=== PATIENT | male | born 1940 | race Caucasian/White ===

== ENCOUNTER 2016-08-04 21:24 | Emergency (ER) | payer MEDICARE, OTHER ==
[2016-08-04 21:36] VITALS: BP 160/75
== END 2016-08-04 22:28 | disposition left against medical advice (07) ==
LOC: ED 21:24
DX: Z53.21 Procedure and treatment not carried out due to patient leaving prior to being seen by health care provider (principal)
CPT/HCPCS: 99282

== ENCOUNTER 2017-06-04 14:56 | Emergency (ER) | payer OTHER ==
--- NOTE | 2017-06-04 15:37 | ED Physician Documentation ---
PD HPI FOCAL NEURO - Stated complaint Stated Complaint: LT SIDE DROOPY - Chief complaint Chief Complaint: Neuro - History obtained from History obtained from: Patient, Family - History of Present Illness Timing - onset: Yesterday Timing - duration: Hours (30) Timing - details: Gradual onset Severity of deficit: Moderate Weakness: Face, Left Numbness: No: Face, Arm, Hand, Leg, Foot, Right, Left Associated symptoms: No: Headache, Nausea / vomiting, Seizure, Syncope, Fall, Head injury, Chest pain, Neck pain, Back pain, Fever Contributing factors: positive: Other (hemodialysis). negative: Anticoagulated Baseline status: positive: A&OX3, ambulatory, indep Similar symptoms before: Has not had sx before Recently seen: Not recently seen - Additional information Additional information: Patient is a 76-year-old gentleman that presents to the emergency department with left-sided facial droop since yesterday. He also states that he has had intermittent left foot dragging for the past month. Currently has no left lower extremity weakness. No right lower extremity weakness or upper extremity weakness bilaterally. No dysarthria or dysphasia. States cannot close his left eye. Has not been sick recently. Review of Systems Ten Systems: 10 systems reviewed and negative Constitutional: denies: Fever, Chills Nose: denies: Rhinorrhea / runny nose, Congestion Throat: denies: Sore throat GI: denies: Nausea, Vomiting, Diarrhea : denies: Dysuria Skin: denies: Rash Musculoskeletal: denies: Neck pain, Back pain Neurologic: denies: Confused, Altered mental status, Headache PD PAST MEDICAL HISTORY - Past Medical History Past Medical History: Yes Other Past Medical History: chronic renal failure on dialysis - Past Surgical History Past Surgical History: No - Present Medications Home Medications: Ambulatory Orders Medication Instructions Recorded Confirmed Aspirin 81 mg PO 06/04/17 Doxazosin [Cardura] 2 mg PO DAILY 06/04/17 06/04/17 Multivit, Mincmb#11/Folic Acid 5 mg PO 06/04/17 [Dialyvite 5000 Tablet] Torsemide 40 mg PO DAILY 06/04/17 06/04/17 Valacyclovir HCl [Valacyclovir] 500 mg PO DAILY #7 tablet 06/04/17 predniSONE [Deltasone] 10 mg PO [id number] #42 tab 06/04/17 - Allergies Allergies/Adverse Reactions: Allergies Allergy/AdvReac Type Severity Reaction Status Date / Time pravastatin Allergy Unknown Verified 06/04/17 15:11 primidone Allergy Dizziness Verified 06/04/17 15:11 simvastatin Allergy Unknown Verified 06/04/17 15:11 zolpidem [From Ambien] Allergy Hallucinati Verified 06/04/17 15:11 ons Wnuynzi-Ilh-Ztm Reductase AdvReac Unknown Verified 08/04/16 21:36 Inhibitor - Living Situation Living Situation: reports: With family Living Arrangement: reports: At home - Social History Does the pt smoke?: No Smoking Status: Never smoker Does the pt drink ETOH?: No Does the pt have substance abuse?: No - Immunizations Immunizations are current?: Yes PD ED PE NORMAL - Vitals Vital signs reviewed: Yes - General General: Alert and oriented X 3, No acute distress, Well developed/nourished - HEENT HEENT: PERRL, Ears normal, Moist mucous membranes - Neck Neck: Supple, no meningeal sign - Cardiac Cardiac: RRR, Strong equal pulses - Respiratory Respiratory: No respiratory distress, Clear bilaterally - Abdomen Abdomen: Soft, Non tender, Non distended - Derm Derm: Warm and dry, No rash - Neuro Neuro: Alert and oriented X 3, Other (L sided facial droop, involves the forehead. Flattening of the nasolabial fold. Otherwise normal cranial nerve and neuro exam. ) - Psych Psych: Normal mood, Normal affect NIHSS - Time Time: 15:25 - Level of Consciousness Level of consciousness: (0) Alert, Keenly responsive LOC Questions: (0) Answers both Q's correct LOC Commands: (0) Performs both correctly - Gaze Best Gaze: (0) Normal - Visual Visual: (0) No loss - Facial Palsy Facial Palsy: (3) Complete paralysis - Motor Arms (both separate) Motor Arm (right): (0) No drift Motor Arm (left): (0) No drift - Motor Legs (both separate) Motor Leg (right): (0) No drift Motor Leg (left): (0) No drift - Limb Ataxia Limb Ataxia: (0) Absent - Sensory Sensory: (0) Normal - Best Language Best Language: (0) No aphasia - Dysarthria Dysarthria: (0) Normal - Extinction and Inattention (formally neg Extinction and inattention: (0) No abnormality - Total Score/Results Total Score/Result: 3 Results - Vitals Vitals: Vital Signs - 24 hr 06/04/17 06/04/17 15:08 17:36 Temperature 36.9 C 36.9 C Heart Rate 60 78 Respiratory 16 17 Rate Blood Pressure 168/79 H 173/89 H O2 Saturation 97 98 Oxygen O2 Source Room air - EKG (time done) 1550 Rate: Rate (enter#) (57) Rhythm: NSR [place]: Normal Intervals: Normal SC QRS: Normal Ischemia: Normal ST segments - Labs Labs: Laboratory Tests 06/04/17 06/04/17 15:57 15:57 WBC 6.4 RBC 3.39 L Hgb 11.0 L Hct 32.9 L MCV 97.1 H MCH 32.4 H MCHC 33.3 RDW 13.2 Plt Count 252 MPV 7.5 Neut # 4.5 Lymph # 1.0 L [place] # 0.5 Eos # 0.4 Baso # 0.1 Absolute Nucleated RBC 0.00 Nucleated RBC % 0.0 Sodium 135 Potassium 3.8 Chloride 94 L Carbon Dioxide 28 Anion Gap 13.0 BUN 76 H Creatinine 8.9 H* Estimated GFR (MDRD) 6 L Glucose 156 H Calcium 9.4 Total Bilirubin 0.4 AST 15 ALT 18 Alkaline Phosphatase 55 Total Protein 6.8 Albumin 3.7 Globulin 3.1 Albumin/Globulin Ratio 1.2 Lipase 74 H - Rads (name of study) head CT Radiology: Prelim report reviewed, EMP read contemporaneously, See rad report ( Mild generalized atrophy, within expected limits for patient age. 2. No acute intracranial abnormality. 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 Given his age and comorbidities, CT scan was undertaken to evaluate for other potential etiologies, as well as the dragging of the left foot intermittently for the past few months. No acute findings on head CT or laboratory findings. 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 He is on hemodialysis of his medication doses were adjusted. Patient counseled regarding signs and symptoms for which I believe and urgent re-evaluation would be necessary. Patient with good understanding of and agreement to plan and is comfortable going home at this time This document was made in part using voice recognition software. While efforts are made to proofread this document, sound alike and grammatical errors may occur. Departure - Departure Disposition: 01 Home, Self Care Clinical Impression: Carlin palsy Condition: Good Instructions: ED [place] Palsy Follow-Up: your,doctor in 1 week [Other] Prescriptions: predniSONE [Deltasone] 10 mg PO [id number] #42 tab Valacyclovir HCl [Valacyclovir] 500 mg PO DAILY #7 tablet Comments: You need to use artificial tears to help lubricate the left eye. A gel tear should be used at night and you may need to tape the left eyelid shut at night to prevent ulcers to your cornea. Return if you worsen. Discharge Date/Time: 06/04/17 17:38
[2017-06-04 16:07] LABS: BASOPHILS # (AUTO) 0.1 10^3/uL (0.0-0.1); BASOPHILS % (AUTO) 0.9 %; EOSINOPHILS # (AUTO) 0.4 10^3/uL (0.0-0.7); LYMPHOCYTES % (AUTO) 15.4 %; MEAN CORPUSCULAR HEMOGLOBIN 32.4 pg (27.0-31.0); MEAN CORPUSCULAR HGB CONC 33.3 g/dL (32.0-36.0); MEAN CORPUSCULAR VOLUME 97.1 fL (80.0-94.0); MEAN PLATELET VOLUME 7.5 fL (7.4-11.4); MONOCYTES # (AUTO) 0.5 10^3/uL (0.0-1.0); MONOCYTES % (AUTO) 7.6 %; NEUTROPHILS # (AUTO) 4.5 10^3/uL (1.5-6.6); NEUTROPHILS % (AUTO) 70.1 %; PLT - PLATELET COUNT 252 10^3/uL (130-450); RED BLOOD COUNT 3.39 10^6/uL (4.70-6.10); RED CELL DISTRIBUTION WIDTH 13.2 % (12.0-15.0); WHITE BLOOD COUNT 6.4 x10^3/uL (4.8-10.8)
[2017-06-04 16:25] LABS: ALBUMIN 3.7 g/dL (3.2-5.5); ALBUMIN/GLOBULIN RATIO 1.2 (1.0-2.2); BILIRUBIN,TOTAL 0.4 mg/dL (0.2-1.0); CALCIUM 9.4 mg/dL (8.5-10.3); TOTAL PROTEIN 6.8 g/dL (6.7-8.2)
[2017-06-04 16:27] LABS: CREATININE 8.9 mg/dL (0.6-1.2)
--- NOTE | 2017-06-04 16:33 | CT Preliminary Report ---
Exam: CT HEAD W/O IMPRESSION: 1. Mild generalized atrophy, within expected limits for patient age. 2. No acute intracranial abnormality. [facility] SITE ID: [id number]
--- NOTE | 2017-06-04 16:33 | CT Report ---
EXAM: CT HEAD EXAM DATE: 06/04/2017 04:10 PM. CLINICAL HISTORY: Left-sided facial droop since yesterday. COMPARISON: 09/22/2008. TECHNIQUE: Multiaxial CT images were obtained from the foramen magnum to the vertex. Reformats: Coron al. IV contrast: None. In accordance with CT protocol optimization, one or more of the following dose reduction techniques w ere utilized for this exam: automated exposure control, adjustment of mA and/or KV based on patient s ize, or use of iterative reconstructive technique. FINDINGS: Parenchyma: No intraparenchymal hemorrhage, mass effect, or CT findings of evolving acute/subacute in farct. Baumann-white differentiation is distinct. Extraaxial Spaces: Mild diffuse prominence, compatible with generalized atrophy. No subdural or epidu ral collections identified. Ventricles: Normal in size and position. Sinuses and Orbits: Imaged paranasal sinuses, orbits, and mastoids show no significant abnormality. Bones: No evidence of fracture or calvarial defect. Other: None. IMPRESSION: 1. Mild generalized atrophy, within expected limits for patient age. 2. No acute intracranial abnormality. [facility] Referring Provider Line: [phone] SITE ID: [id number]
[2017-06-04 17:38] VITALS: BP 173/89
== END 2017-06-04 17:38 | disposition home or self-care (01) ==
LOC: ED 14:56
DX: G51.0 Bell's palsy (principal); I45.81 Long QT syndrome; N18.9 Chronic kidney disease, unspecified; Z99.2 Dependence on renal dialysis; Z79.82 Long term (current) use of aspirin
CPT/HCPCS: 36415; 70450; 80053; 83690; 85025; 93005; 99283; 99284

== ENCOUNTER 2017-11-28 22:45 | Emergency (ER) | payer OTHER ==
[2017-11-29 00:14] LABS: BILIRUBIN,URINE NEGATIVE (NEGATIVE); CLARITY,URINE CLEAR (CLEAR); GLUCOSE, URINE (UA) NEGATIVE (NEGATIVE); KETONES,URINE (UA) NEGATIVE (NEGATIVE); LEUKOCYTE ESTERASE, URINE NEGATIVE (NEGATIVE); NITRITE,URINE NEGATIVE (NEGATIVE); OCCULT BLOOD,URINE NEGATIVE (NEGATIVE); PROTEIN,URINE 100 mg/dL (NEGATIVE); UROBILINOGEN,URINE 0.2 (NORMAL) E.U./dL (NORMAL)
--- NOTE | 2017-11-29 00:16 | ED Physician Documentation ---
PD HPI MALE - Stated complaint Stated Complaint: MALE - Chief complaint Chief Complaint: Abd Pain - History obtained from History obtained from: Patient, Family - History of Present Illness Timing - onset: How many days ago (2) Timing - duration: Days (2) Timing - details: Gradual onset, Still present Associated symptoms: Urinary frequency, Unable to urinate Similar symptoms before: Has not had sx before Recently seen: Other - Additional information Additional information: 76-year-old dialysis patient who still does make urine has developed urinary symptoms this morning. He denies any urinary symptoms previously. He states that about 2 days ago he began to experience an increase in the frequency of his urination in small volumes. Today he has gone from urinating twice an hour to once every 10 minutes. He is come to the emergency department this evening with urinary frequency and minimal pain associated with this. Review of Systems Constitutional: denies: Fever, Chills, Myalgias, Fatigue Eyes: denies: Decreased vision Ears: denies: Ear pain Nose: denies: Congestion Throat: denies: Sore throat Cardiac: denies: Chest pain / pressure, Palpitations Respiratory: denies: Dyspnea, Cough GI: denies: Abdominal Pain, Nausea, Vomiting, Constipation, Diarrhea : reports: Frequency, Unable to Void Skin: denies: Rash Musculoskeletal: denies: Neck pain, Back pain, Extremity pain Neurologic: denies: Generalized weakness, Focal weakness, Numbness PD PAST MEDICAL HISTORY - Past Medical History Past Medical History: Yes : Renal insuffiency - Past Surgical History Past Surgical History: No - Present Medications Home Medications: Ambulatory Orders Medication Instructions Recorded Confirmed Aspirin 81 mg PO 06/04/17 Doxazosin [Cardura] 2 mg PO DAILY 06/04/17 06/04/17 Multivit-Mins No.11/Folic Acid 5 mg PO 06/04/17 [Dialyvite 5000 Tablet] Torsemide 40 mg PO DAILY 06/04/17 06/04/17 Valacyclovir HCl [Valacyclovir] 500 mg PO DAILY #7 tablet 06/04/17 predniSONE [Deltasone] 10 mg PO [id number] #42 tab 06/04/17 - Allergies Allergies/Adverse Reactions: Allergies Allergy/AdvReac Type Severity Reaction Status Date / Time pravastatin Allergy Unknown Verified 06/04/17 15:11 primidone Allergy Dizziness Verified 06/04/17 15:11 simvastatin Allergy Unknown Verified 06/04/17 15:11 zolpidem [From Ambien] Allergy Hallucinati Verified 06/04/17 15:11 ons Wpfkatf-Hhs-Miv Reductase AdvReac Unknown Verified 08/04/16 21:36 Inhibitor - Social History Does the pt smoke?: No Smoking Status: Never smoker Does the pt drink ETOH?: No Does the pt have substance abuse?: No - Immunizations Immunizations are current?: Yes - POLST Patient has POLST: Yes PD ED PE NORMAL - Vitals Vital signs reviewed: Yes (hyhpertensive) - General General: Alert and oriented X 3, No acute distress, Well developed/nourished - HEENT HEENT: Atraumatic, PERRL, EOMI - Neck Neck: Supple, no meningeal sign - Cardiac Cardiac: RRR, No murmur - Respiratory Respiratory: No respiratory distress, Clear bilaterally - Abdomen Abdomen: Soft, Non tender - Back Back: No CVA TTP, No spinal TTP - Derm Derm: Normal color, Warm and dry, No rash - Extremities Extremities: No deformity, No edema - Neuro Neuro: Alert and oriented X 3, No motor deficit, No sensory deficit, Normal speech Eye Opening: Spontaneous Motor: Obeys Commands Verbal: Oriented GCS Score: 15 - Psych Psych: Normal mood, Normal affect Results - Vitals Vitals: Vital Signs - 24 hr 11/28/17 11/29/17 22:52 00:43 Temperature 36.5 C 36.5 C Heart Rate 80 62 Respiratory 18 12 Rate Blood Pressure 162/92 H 155/85 H O2 Saturation 97 100 Oxygen O2 Source Room air - Labs Labs: Laboratory Tests 11/28/17 22:34 Urine Color YELLOW Urine Clarity CLEAR Urine pH 7.0 Ur Specific [place] 1.015 Urine Protein 100 H Urine Glucose (UA) NEGATIVE Urine Ketones NEGATIVE Urine Occult Blood NEGATIVE Urine Nitrite NEGATIVE Urine Bilirubin NEGATIVE Urine Urobilinogen 0.2 (NORMAL) Ur Leukocyte Esterase NEGATIVE Urine RBC None Seen Urine WBC 0-3 Ur Squamous Epith Cells RARE Squamous Urine Bacteria None Seen Urine Casts 6-10 Hyaline Casts Ur Microscopic Review INDICATED Urine Culture Comments NOT INDICATED Procedures - Bedside sono Bedside sono by EMP: With use of bedside ultrasound the bladder is imaged and is obviously full of urine. It appears over distended. PD MEDICAL DECISION MAKING - ED course Complexity details: reviewed results, re-evaluated patient, considered differential, d/w patient, d/w family ED course: 76-year-old male with urinary frequency has urinary retention. A Roche catheter is placed with drainage of more than 800 mls of urine. Departure - Departure Disposition: 01 Home, Self Care Clinical Impression: Urinary retention Condition: Stable Instructions: ED Catheter Care Roche, ED Retention Urinary Male Follow-Up: Jenni Stoll ARNP [Primary Care Provider] - Comments: Tonight there is no evidence of infection in the urine. Your bladder is over distended and will need to be decompressed for a week to 10 days. You will need follow-up with your urologist for removal of this Roche catheter. Discharge Date/Time: 11/29/17 01:06
[2017-11-29 00:23] LABS: BACTERIA,URINE None Seen /HPF (None Seen); CASTS, URINE 6-10 Hyaline Casts /LPF; RBC,URINE None Seen /HPF (0-5); SQUAMOUS EPITHELIAL CELL,UR RARE Squamous (<= Few)
[2017-11-29 00:44] VITALS: BP 155/85
== END 2017-11-29 01:06 | disposition home or self-care (01) ==
LOC: ED 22:45
DX: R33.9 Retention of urine, unspecified (principal); R35.0 Frequency of micturition; Z99.2 Dependence on renal dialysis
CPT/HCPCS: 51702; 81001; 81003; 87086; 99282; 99283

== ENCOUNTER 2017-12-27 15:21 | Outpatient (CLI) | payer MEDICARE, OTHER ==
--- NOTE | 2017-12-27 13:42 | XRAY Report ---
Reason: LOW BACK PAIN, PAIN IN LEFT HIP Procedure Date: 12/27/2017 Accession Number: [id number] / [id number] Procedure: XR - Hip w/Pelvis 2-3V LT CPT Code: FULL RESULT: EXAM: LEFT HIP RADIOGRAPHY, SACROILIAC JOINT RADIOGRAPHY. EXAM DATE: 12/27/2017 12:50 PM. CLINICAL HISTORY: LOW BACK PAIN, PAIN IN LEFT HIP. COMPARISON: HIP W/PELVIS 2-3V LT 12/27/2017 12:12 PM. TECHNIQUE: 2 views of the left hip and 3 views of the sacroiliac joints. FINDINGS: Sacroiliac Joints: The sacroiliac joints are symmetric without sclerosis or fracture. Bones: Normal. No fractures or bone lesion. Joints: Normal. No dislocation. The hip joint space is mildly narrowed bilaterally. Soft Tissues: Normal. No soft tissue swelling. IMPRESSION: Mild degenerative joint disease of the hips. Normal sacroiliac joints. [facility]
--- NOTE | 2017-12-27 13:42 | XRAY Report ---
Reason: LOW BACK PAIN, PAIN IN LEFT HIP Procedure Date: 12/27/2017 Accession Number: [id number] / [id number] Procedure: XR - SI Joints CPT Code: FULL RESULT: EXAM: LEFT HIP RADIOGRAPHY, SACROILIAC JOINT RADIOGRAPHY. EXAM DATE: 12/27/2017 12:50 PM. CLINICAL HISTORY: LOW BACK PAIN, PAIN IN LEFT HIP. COMPARISON: HIP W/PELVIS 2-3V LT 12/27/2017 12:12 PM. TECHNIQUE: 2 views of the left hip and 3 views of the sacroiliac joints. FINDINGS: Sacroiliac Joints: The sacroiliac joints are symmetric without sclerosis or fracture. Bones: Normal. No fractures or bone lesion. Joints: Normal. No dislocation. The hip joint space is mildly narrowed bilaterally. Soft Tissues: Normal. No soft tissue swelling. IMPRESSION: Mild degenerative joint disease of the hips. Normal sacroiliac joints. [facility]
== END 2017-12-27 15:22 | disposition home or self-care (01) ==
LOC: DI 15:21
PROVIDERS: ATTEND Physician Assistant
DX: M16.0 Bilateral primary osteoarthritis of hip (principal); M54.5 Low back pain
CPT/HCPCS: 72202

== ENCOUNTER 2018-10-29 10:24 | Outpatient (CLI) | payer MEDICARE, OTHER ==
[2018-10-29 13:10] LABS: ALBUMIN 3.6 g/dL (3.2-5.5); ALBUMIN/GLOBULIN RATIO 1.3 (1.0-2.2); BILIRUBIN,TOTAL 0.5 mg/dL (0.2-1.0); CALCIUM 8.7 mg/dL (8.5-10.3); CREATININE 2.1 mg/dL (0.6-1.2); MAGNESIUM 1.9 mg/dL (1.7-2.8); PHOSPHORUS 3.6 mg/dL (2.5-4.6); TOTAL PROTEIN 6.4 g/dL (6.7-8.2)
[2018-10-29 14:03] LABS: BASOPHILS % (AUTO) 0.4 %; EOSINOPHILS # (AUTO) 0.2 10^3/uL (0.0-0.7); EOSINOPHILS % (AUTO) 3.4 %; HGB - HEMOGLOBIN 9.1 g/dL (14.0-18.0); LYMPHOCYTES # (AUTO) 0.7 10^3/uL (1.5-3.5); LYMPHOCYTES % (AUTO) 14.9 %; MEAN CORPUSCULAR HEMOGLOBIN 32.5 pg (27.0-31.0); MEAN CORPUSCULAR HGB CONC 31.4 g/dL (32.0-36.0); MEAN CORPUSCULAR VOLUME 103.6 fL (80.0-94.0); MEAN PLATELET VOLUME 9.5 fL (7.4-11.4); MONOCYTES # (AUTO) 0.4 10^3/uL (0.0-1.0); NEUTROPHILS # (AUTO) 3.6 10^3/uL (1.5-6.6); NEUTROPHILS % (AUTO) 72.7 %; PLT - PLATELET COUNT 349 10^3/uL (130-450); RED CELL DISTRIBUTION WIDTH 14.3 % (12.0-15.0)
== END 2018-10-29 10:30 | disposition home or self-care (01) ==
LOC: LAB.N 10:24
PROVIDERS: ATTEND Internal Medicine
DX: Z48.298 Encounter for aftercare following other organ transplant (principal); E83.40 Disorders of magnesium metabolism, unspecified; Z94.0 Kidney transplant status; T86.40 Unspecified complication of liver transplant
CPT/HCPCS: 36415; 80053; 80197; 83735; 84100; 85025

== ENCOUNTER 2018-11-05 08:00 | Outpatient (CLI) | payer MEDICARE, OTHER ==
[2018-11-05 13:05] LABS: ALBUMIN 3.8 g/dL (3.2-5.5); ALBUMIN/GLOBULIN RATIO 1.4 (1.0-2.2); BILIRUBIN,TOTAL 0.8 mg/dL (0.2-1.0); CALCIUM 8.7 mg/dL (8.5-10.3); MAGNESIUM 2.3 mg/dL (1.7-2.8); PHOSPHORUS 4.3 mg/dL (2.5-4.6); TOTAL PROTEIN 6.5 g/dL (6.7-8.2)
[2018-11-05 13:12] LABS: BASOPHILS % (AUTO) 0.4 %; EOSINOPHILS # (AUTO) 0.1 10^3/uL (0.0-0.7); EOSINOPHILS % (AUTO) 1.6 %; HGB - HEMOGLOBIN 10.1 g/dL (14.0-18.0); LYMPHOCYTES # (AUTO) 0.8 10^3/uL (1.5-3.5); LYMPHOCYTES % (AUTO) 16.1 %; MEAN CORPUSCULAR HEMOGLOBIN 32.5 pg (27.0-31.0); MEAN CORPUSCULAR HGB CONC 31.5 g/dL (32.0-36.0); MEAN CORPUSCULAR VOLUME 103.2 fL (80.0-94.0); MEAN PLATELET VOLUME 9.8 fL (7.4-11.4); MONOCYTES # (AUTO) 0.5 10^3/uL (0.0-1.0); MONOCYTES % (AUTO) 10.4 %; NEUTROPHILS # (AUTO) 3.5 10^3/uL (1.5-6.6); NEUTROPHILS % (AUTO) 70.7 %; PLT - PLATELET COUNT 287 10^3/uL (130-450); RED BLOOD COUNT 3.11 10^6/uL (4.70-6.10)
== END 2018-11-05 08:01 | disposition home or self-care (01) ==
LOC: LAB.N 08:00
PROVIDERS: ATTEND Internal Medicine
DX: Z48.298 Encounter for aftercare following other organ transplant (principal); T86.40 Unspecified complication of liver transplant; E83.40 Disorders of magnesium metabolism, unspecified; Z94.0 Kidney transplant status
CPT/HCPCS: 36415; 80053; 80197; 83735; 84100; 85025

== ENCOUNTER 2018-11-12 19:30 | Outpatient (CLI) | payer MEDICARE, OTHER ==
[2018-11-12 12:19] LABS: BASOPHILS # (AUTO) 0.1 10^3/uL (0.0-0.1); BASOPHILS % (AUTO) 0.9 %; EOSINOPHILS # (AUTO) 0.1 10^3/uL (0.0-0.7); EOSINOPHILS % (AUTO) 1.6 %; HGB - HEMOGLOBIN 10.3 g/dL (14.0-18.0); LYMPHOCYTES # (AUTO) 0.9 10^3/uL (1.5-3.5); LYMPHOCYTES % (AUTO) 14.9 %; MEAN CORPUSCULAR HEMOGLOBIN 31.5 pg (27.0-31.0); MEAN CORPUSCULAR HGB CONC 30.7 g/dL (32.0-36.0); MEAN CORPUSCULAR VOLUME 102.4 fL (80.0-94.0); MEAN PLATELET VOLUME 10.3 fL (7.4-11.4); MONOCYTES # (AUTO) 0.6 10^3/uL (0.0-1.0); MONOCYTES % (AUTO) 9.8 %; NEUTROPHILS # (AUTO) 4.1 10^3/uL (1.5-6.6); NEUTROPHILS % (AUTO) 71.6 %; PLT - PLATELET COUNT 229 10^3/uL (130-450); RED BLOOD COUNT 3.27 10^6/uL (4.70-6.10); RED CELL DISTRIBUTION WIDTH 13.4 % (12.0-15.0); WHITE BLOOD COUNT 5.7 x10^3/uL (4.8-10.8)
[2018-11-12 12:29] LABS: ALBUMIN 3.7 g/dL (3.2-5.5); ALBUMIN/GLOBULIN RATIO 1.3 (1.0-2.2); BILIRUBIN,TOTAL 0.6 mg/dL (0.2-1.0); CALCIUM 8.6 mg/dL (8.5-10.3); CREATININE 1.8 mg/dL (0.6-1.2); MAGNESIUM 2.2 mg/dL (1.7-2.8); PHOSPHORUS 4.8 mg/dL (2.5-4.6); TOTAL PROTEIN 6.5 g/dL (6.7-8.2)
== END 2018-11-12 23:59 | disposition home or self-care (01) ==
LOC: LAB.N 19:30
PROVIDERS: ATTEND Internal Medicine
DX: Z48.298 Encounter for aftercare following other organ transplant (principal); Z94.0 Kidney transplant status; T86.40 Unspecified complication of liver transplant; E83.40 Disorders of magnesium metabolism, unspecified
CPT/HCPCS: 36415; 80053; 80197; 83735; 84100; 85025

== ENCOUNTER 2018-11-19 07:22 | Outpatient (CLI) | payer MEDICARE, OTHER ==
[2018-11-19 12:01] LABS: BASOPHILS % (AUTO) 0.6 %; EOSINOPHILS # (AUTO) 0.1 10^3/uL (0.0-0.7); EOSINOPHILS % (AUTO) 1.3 %; HGB - HEMOGLOBIN 11.2 g/dL (14.0-18.0); LYMPHOCYTES # (AUTO) 0.8 10^3/uL (1.5-3.5); LYMPHOCYTES % (AUTO) 11.5 %; MEAN CORPUSCULAR HEMOGLOBIN 30.9 pg (27.0-31.0); MEAN CORPUSCULAR HGB CONC 30.8 g/dL (32.0-36.0); MEAN CORPUSCULAR VOLUME 100.3 fL (80.0-94.0); MEAN PLATELET VOLUME 10.1 fL (7.4-11.4); MONOCYTES # (AUTO) 0.6 10^3/uL (0.0-1.0); MONOCYTES % (AUTO) 8.1 %; NEUTROPHILS # (AUTO) 5.5 10^3/uL (1.5-6.6); NEUTROPHILS % (AUTO) 77.8 %; PLT - PLATELET COUNT 256 10^3/uL (130-450); RED BLOOD COUNT 3.63 10^6/uL (4.70-6.10); RED CELL DISTRIBUTION WIDTH 13.2 % (12.0-15.0); WHITE BLOOD COUNT 7.1 x10^3/uL (4.8-10.8)
[2018-11-19 12:29] LABS: ALBUMIN 4.1 g/dL (3.2-5.5); ALBUMIN/GLOBULIN RATIO 1.5 (1.0-2.2); BILIRUBIN,TOTAL 0.7 mg/dL (0.2-1.0); CALCIUM 8.8 mg/dL (8.5-10.3); MAGNESIUM 2.4 mg/dL (1.7-2.8); PHOSPHORUS 4.4 mg/dL (2.5-4.6); TOTAL PROTEIN 6.9 g/dL (6.7-8.2)
== END 2018-11-19 23:59 | disposition home or self-care (01) ==
LOC: LAB.N 07:22
PROVIDERS: ATTEND Internal Medicine
DX: Z94.0 Kidney transplant status (principal); Z48.298 Encounter for aftercare following other organ transplant; T86.40 Unspecified complication of liver transplant; E83.40 Disorders of magnesium metabolism, unspecified
CPT/HCPCS: 36415; 80053; 80197; 81599; 83735; 84100; 85025

== ENCOUNTER 2018-11-26 08:00 | Outpatient (CLI) | payer MEDICARE, OTHER ==
[2018-11-26 12:46] LABS: BASOPHILS % (AUTO) 0.7 %; EOSINOPHILS # (AUTO) 0.1 10^3/uL (0.0-0.7); EOSINOPHILS % (AUTO) 2.9 %; HGB - HEMOGLOBIN 11.5 g/dL (14.0-18.0); LYMPHOCYTES # (AUTO) 0.7 10^3/uL (1.5-3.5); LYMPHOCYTES % (AUTO) 14.9 %; MEAN CORPUSCULAR HEMOGLOBIN 31.6 pg (27.0-31.0); MEAN CORPUSCULAR HGB CONC 31.9 g/dL (32.0-36.0); MEAN CORPUSCULAR VOLUME 99.2 fL (80.0-94.0); MEAN PLATELET VOLUME 10.5 fL (7.4-11.4); MONOCYTES # (AUTO) 0.4 10^3/uL (0.0-1.0); MONOCYTES % (AUTO) 9.7 %; NEUTROPHILS # (AUTO) 3.2 10^3/uL (1.5-6.6); NEUTROPHILS % (AUTO) 70.9 %; PLT - PLATELET COUNT 237 10^3/uL (130-450); RED BLOOD COUNT 3.64 10^6/uL (4.70-6.10); RED CELL DISTRIBUTION WIDTH 13.2 % (12.0-15.0); WHITE BLOOD COUNT 4.6 x10^3/uL (4.8-10.8)
[2018-11-26 12:52] LABS: ALBUMIN 4.1 g/dL (3.2-5.5); ALBUMIN/GLOBULIN RATIO 1.6 (1.0-2.2); BILIRUBIN,TOTAL 0.8 mg/dL (0.2-1.0); CALCIUM 8.7 mg/dL (8.5-10.3); MAGNESIUM 2.4 mg/dL (1.7-2.8); PHOSPHORUS 3.7 mg/dL (2.5-4.6); TOTAL PROTEIN 6.7 g/dL (6.7-8.2)
== END 2018-11-26 23:59 | disposition home or self-care (01) ==
LOC: LAB.N 08:00
PROVIDERS: ATTEND Internal Medicine
DX: Z94.0 Kidney transplant status (principal); Z48.298 Encounter for aftercare following other organ transplant; T86.40 Unspecified complication of liver transplant; E83.40 Disorders of magnesium metabolism, unspecified
CPT/HCPCS: 36415; 80053; 80197; 83735; 84100; 85025

== ENCOUNTER 2018-12-03 07:03 | Outpatient (CLI) | payer MEDICARE, OTHER ==
[2018-12-03 12:22] LABS: BASOPHILS % (AUTO) 0.6 %; EOSINOPHILS # (AUTO) 0.1 10^3/uL (0.0-0.7); EOSINOPHILS % (AUTO) 3.3 %; HGB - HEMOGLOBIN 11.4 g/dL (14.0-18.0); LYMPHOCYTES # (AUTO) 0.6 10^3/uL (1.5-3.5); LYMPHOCYTES % (AUTO) 15.4 %; MEAN CORPUSCULAR HEMOGLOBIN 30.3 pg (27.0-31.0); MEAN CORPUSCULAR HGB CONC 30.6 g/dL (32.0-36.0); MEAN CORPUSCULAR VOLUME 99.2 fL (80.0-94.0); MEAN PLATELET VOLUME 10.3 fL (7.4-11.4); MONOCYTES # (AUTO) 0.4 10^3/uL (0.0-1.0); MONOCYTES % (AUTO) 9.9 %; NEUTROPHILS # (AUTO) 2.5 10^3/uL (1.5-6.6); NEUTROPHILS % (AUTO) 68.6 %; PLT - PLATELET COUNT 195 10^3/uL (130-450); RED BLOOD COUNT 3.76 10^6/uL (4.70-6.10); RED CELL DISTRIBUTION WIDTH 13.2 % (12.0-15.0); WHITE BLOOD COUNT 3.6 x10^3/uL (4.8-10.8)
[2018-12-03 12:36] LABS: ALBUMIN/GLOBULIN RATIO 1.4 (1.0-2.2); BILIRUBIN,TOTAL 0.8 mg/dL (0.2-1.0); CALCIUM 8.8 mg/dL (8.5-10.3); CREATININE 1.8 mg/dL (0.6-1.2); MAGNESIUM 2.2 mg/dL (1.7-2.8); PHOSPHORUS 3.8 mg/dL (2.5-4.6); TOTAL PROTEIN 6.8 g/dL (6.7-8.2)
== END 2018-12-03 23:59 | disposition home or self-care (01) ==
LOC: LAB.N 07:03
PROVIDERS: ATTEND Internal Medicine
DX: Z94.0 Kidney transplant status (principal); Z48.298 Encounter for aftercare following other organ transplant; T86.40 Unspecified complication of liver transplant; E83.40 Disorders of magnesium metabolism, unspecified
CPT/HCPCS: 36415; 80053; 80197; 83735; 84100; 85025

== ENCOUNTER 2018-12-10 07:06 | Outpatient (CLI) | payer MEDICARE, OTHER ==
[2018-12-10 12:16] LABS: EOSINOPHILS # (AUTO) 0.1 10^3/uL (0.0-0.7); EOSINOPHILS % (AUTO) 4.2 %; HGB - HEMOGLOBIN 10.9 g/dL (14.0-18.0); LYMPHOCYTES # (AUTO) 0.5 10^3/uL (1.5-3.5); LYMPHOCYTES % (AUTO) 28.1 %; MEAN CORPUSCULAR HEMOGLOBIN 31.7 pg (27.0-31.0); MEAN CORPUSCULAR HGB CONC 32.2 g/dL (32.0-36.0); MEAN CORPUSCULAR VOLUME 98.3 fL (80.0-94.0); MEAN PLATELET VOLUME 10.2 fL (7.4-11.4); MONOCYTES # (AUTO) 0.2 10^3/uL (0.0-1.0); MONOCYTES % (AUTO) 9.4 %; NEUTROPHILS # (AUTO) 0.9 10^3/uL (1.5-6.6); NEUTROPHILS % (AUTO) 47.9 %; PLT - PLATELET COUNT 162 10^3/uL (130-450); RED BLOOD COUNT 3.44 10^6/uL (4.70-6.10); RED CELL DISTRIBUTION WIDTH 13.2 % (12.0-15.0)
[2018-12-10 12:29] LABS: ALBUMIN 3.7 g/dL (3.2-5.5); ALBUMIN/GLOBULIN RATIO 1.3 (1.0-2.2); BILIRUBIN,TOTAL 0.6 mg/dL (0.2-1.0); CALCIUM 8.6 mg/dL (8.5-10.3); CREATININE 1.6 mg/dL (0.6-1.2); PHOSPHORUS 3.8 mg/dL (2.5-4.6); TOTAL PROTEIN 6.5 g/dL (6.7-8.2)
[2018-12-10 13:48] LABS: PLATELET ESTIMATE, MANUAL NORMAL (130-450,000) (NORMAL); PLATELET MORPHOLOGY NORMAL APPEARANCE (NORMAL); RBC MORPHOLOGY (MULTIPLE) 1+ POLYCHROMASIA (NORMAL); WHITE BLOOD COUNT 1.9 x10^3/uL (4.8-10.8)
== END 2018-12-10 23:59 | disposition home or self-care (01) ==
LOC: LAB.N 07:06
PROVIDERS: ATTEND Internal Medicine
DX: Z94.0 Kidney transplant status (principal); Z48.298 Encounter for aftercare following other organ transplant; T86.40 Unspecified complication of liver transplant; E83.40 Disorders of magnesium metabolism, unspecified
CPT/HCPCS: 36415; 80053; 80197; 83735; 84100; 85025

== ENCOUNTER 2018-12-13 07:19 | Outpatient (CLI) | payer MEDICARE, OTHER ==
[2018-12-13 12:55] LABS: BASOPHILS % (AUTO) 1.1 %; EOSINOPHILS # (AUTO) 0.1 10^3/uL (0.0-0.7); EOSINOPHILS % (AUTO) 5.9 %; HGB - HEMOGLOBIN 11.2 g/dL (14.0-18.0); LYMPHOCYTES # (AUTO) 0.8 10^3/uL (1.5-3.5); MEAN CORPUSCULAR HEMOGLOBIN 31.5 pg (27.0-31.0); MEAN CORPUSCULAR HGB CONC 32.2 g/dL (32.0-36.0); MEAN PLATELET VOLUME 10.4 fL (7.4-11.4); MONOCYTES # (AUTO) 0.1 10^3/uL (0.0-1.0); NEUTROPHILS % (AUTO) 31.2 %; PLT - PLATELET COUNT 171 10^3/uL (130-450); RED BLOOD COUNT 3.55 10^6/uL (4.70-6.10); RED CELL DISTRIBUTION WIDTH 13.1 % (12.0-15.0)
[2018-12-13 13:01] LABS: ALBUMIN 3.8 g/dL (3.2-5.5); ALBUMIN/GLOBULIN RATIO 1.4 (1.0-2.2); BILIRUBIN,TOTAL 0.6 mg/dL (0.2-1.0); CALCIUM 8.7 mg/dL (8.5-10.3); CREATININE 1.8 mg/dL (0.6-1.2); PHOSPHORUS 3.8 mg/dL (2.5-4.6); TOTAL PROTEIN 6.5 g/dL (6.7-8.2)
[2018-12-13 14:05] LABS: NEUTROPHILS # (AUTO) 0.6 10^3/uL (1.5-6.6); WHITE BLOOD COUNT 1.9 x10^3/uL (4.8-10.8)
[2018-12-15 08:02] LABS: CMV DNA QN RT PCR 136326 IU/mL; SOURCE BLOOD
== END 2018-12-13 23:59 | disposition home or self-care (01) ==
LOC: LAB.N 07:19
PROVIDERS: ATTEND Internal Medicine
DX: Z94.0 Kidney transplant status (principal); Z48.298 Encounter for aftercare following other organ transplant; T86.40 Unspecified complication of liver transplant; E83.40 Disorders of magnesium metabolism, unspecified; T86.90 Unspecified complication of unspecified transplanted organ and tissue; B34.9 Viral infection, unspecified
CPT/HCPCS: 36415; 80053; 80197; 83735; 84100; 85025; 87497

== ENCOUNTER 2018-12-18 08:00 | Outpatient (CLI) | payer MEDICARE, OTHER ==
[2018-12-18 12:10] LABS: BASOPHILS % (AUTO) 1.1 %; EOSINOPHILS % (AUTO) 4.6 %; HGB - HEMOGLOBIN 11.2 g/dL (14.0-18.0); LYMPHOCYTES % (AUTO) 53.4 %; MEAN CORPUSCULAR HEMOGLOBIN 31.3 pg (27.0-31.0); MEAN CORPUSCULAR VOLUME 97.8 fL (80.0-94.0); MEAN PLATELET VOLUME 10.2 fL (7.4-11.4); MONOCYTES % (AUTO) 20.1 %; PLT - PLATELET COUNT 207 10^3/uL (130-450); RED BLOOD COUNT 3.58 10^6/uL (4.70-6.10); RED CELL DISTRIBUTION WIDTH 13.2 % (12.0-15.0); WHITE BLOOD COUNT 2.8 x10^3/uL (4.8-10.8)
[2018-12-18 12:45] LABS: ALBUMIN 3.5 g/dL (3.2-5.5); ALBUMIN/GLOBULIN RATIO 1.2 (1.0-2.2); BILIRUBIN,TOTAL 0.5 mg/dL (0.2-1.0); CALCIUM 8.7 mg/dL (8.5-10.3); CREATININE 1.7 mg/dL (0.6-1.2); MAGNESIUM 1.9 mg/dL (1.7-2.8); TOTAL PROTEIN 6.4 g/dL (6.7-8.2)
[2018-12-18 13:16] LABS: ABNORMAL LYMPHS % (MANUAL) 0 %; BAND NEUTROPHILS % (MANUAL) 0 %
[2018-12-18 13:25] LABS: BASOPHILS # (MANUAL) 0.1 10^3/uL (0-0.1); BASOPHILS % (MANUAL) 2 %; DIFFERENTIAL COMMENT MANUAL DIFFERENTIAL; EOSINOPHILS # (MANUAL) 0.2 10^3/uL (0-0.7); LYMPHOCYTES # (MANUAL) 2.1 10^3/uL (1.5-3.5); LYMPHOCYTES % (MANUAL) 24 %; MONOCYTES # (MANUAL) 0.2 10^3/uL (0.0-1.0); PLATELET MORPHOLOGY RARE GIANT PLATELETS (NORMAL)
== END 2018-12-18 23:59 | disposition home or self-care (01) ==
LOC: LAB.N 08:00
PROVIDERS: ATTEND Internal Medicine
DX: Z94.0 Kidney transplant status (principal); Z48.298 Encounter for aftercare following other organ transplant; T86.40 Unspecified complication of liver transplant; E83.40 Disorders of magnesium metabolism, unspecified
CPT/HCPCS: 36415; 80053; 80197; 83735; 84100; 85025

== ENCOUNTER 2018-12-24 07:11 | Outpatient (CLI) | payer MEDICARE, OTHER ==
[2018-12-24 13:18] LABS: BASOPHILS % (AUTO) 0.9 %; EOSINOPHILS # (AUTO) 0.1 10^3/uL (0.0-0.7); EOSINOPHILS % (AUTO) 2.4 %; HGB - HEMOGLOBIN 11.1 g/dL (14.0-18.0); LYMPHOCYTES # (AUTO) 3.2 10^3/uL (1.5-3.5); LYMPHOCYTES % (AUTO) 69.8 %; MEAN CORPUSCULAR HEMOGLOBIN 30.3 pg (27.0-31.0); MEAN CORPUSCULAR HGB CONC 31.3 g/dL (32.0-36.0); MEAN PLATELET VOLUME 10.1 fL (7.4-11.4); MONOCYTES # (AUTO) 0.4 10^3/uL (0.0-1.0); NEUTROPHILS % (AUTO) 11.5 %; PLT - PLATELET COUNT 240 10^3/uL (130-450); RED BLOOD COUNT 3.66 10^6/uL (4.70-6.10); RED CELL DISTRIBUTION WIDTH 13.4 % (12.0-15.0); WHITE BLOOD COUNT 4.6 x10^3/uL (4.8-10.8)
[2018-12-24 13:36] LABS: ALBUMIN 3.6 g/dL (3.2-5.5); BILIRUBIN,TOTAL 0.6 mg/dL (0.2-1.0); CALCIUM 8.6 mg/dL (8.5-10.3); CREATININE 1.7 mg/dL (0.6-1.2); MAGNESIUM 2.1 mg/dL (1.7-2.8); PHOSPHORUS 4.3 mg/dL (2.5-4.6); TOTAL PROTEIN 7.1 g/dL (6.7-8.2)
[2018-12-24 15:14] LABS: DIFFERENTIAL COMMENT MANUAL=AUTO DIFF; PLATELET ESTIMATE, MANUAL NORMAL (130-450,000) (NORMAL); PLATELET MORPHOLOGY NORMAL APPEARANCE (NORMAL); RBC MORPHOLOGY (MULTIPLE) NORMAL APPEARANCE (NORMAL)
[2018-12-24 15:21] LABS: NEUTROPHILS # (AUTO) 0.5 10^3/uL (1.5-6.6)
[2018-12-26 18:41] LABS: SOURCE BLOOD
[2018-12-27 14:43] LABS: CMV DNA QN RT PCR 2826 IU/mL
== END 2018-12-24 23:59 | disposition home or self-care (01) ==
LOC: LAB.N 07:11
PROVIDERS: ATTEND Internal Medicine
DX: Z94.0 Kidney transplant status (principal); Z48.298 Encounter for aftercare following other organ transplant; T86.40 Unspecified complication of liver transplant; E83.40 Disorders of magnesium metabolism, unspecified; B34.9 Viral infection, unspecified; T86.90 Unspecified complication of unspecified transplanted organ and tissue
CPT/HCPCS: 36415; 80053; 80197; 83735; 84100; 85025; 87497

== ENCOUNTER 2018-12-31 07:22 | Outpatient (CLI) | payer MEDICARE, OTHER ==
[2018-12-31 07:37] LABS: BASOPHILS # (AUTO) 0.1 10^3/uL (0.0-0.1); BASOPHILS % (AUTO) 2.2 %; EOSINOPHILS # (AUTO) 0.2 10^3/uL (0.0-0.7); EOSINOPHILS % (AUTO) 4.6 %; HGB - HEMOGLOBIN 11.2 g/dL (14.0-18.0); LYMPHOCYTES # (AUTO) 2.3 10^3/uL (1.5-3.5); MEAN CORPUSCULAR HEMOGLOBIN 29.7 pg (27.0-31.0); MEAN CORPUSCULAR HGB CONC 31.1 g/dL (32.0-36.0); MEAN CORPUSCULAR VOLUME 95.5 fL (80.0-94.0); MEAN PLATELET VOLUME 8.8 fL (7.4-11.4); MONOCYTES # (AUTO) 0.4 10^3/uL (0.0-1.0); MONOCYTES % (AUTO) 9.9 %; NEUTROPHILS # (AUTO) 0.8 10^3/uL (1.5-6.6); NEUTROPHILS % (AUTO) 21.5 %; PLT - PLATELET COUNT 260 10^3/uL (130-450); RED BLOOD COUNT 3.77 10^6/uL (4.70-6.10); RED CELL DISTRIBUTION WIDTH 13.3 % (12.0-15.0); WHITE BLOOD COUNT 3.7 x10^3/uL (4.8-10.8)
[2018-12-31 08:02] LABS: ALBUMIN 3.7 g/dL (3.2-5.5); ALBUMIN/GLOBULIN RATIO 0.8 (1.0-2.2); BILIRUBIN,TOTAL 0.7 mg/dL (0.2-1.0); CALCIUM 8.6 mg/dL (8.5-10.3); CREATININE 1.7 mg/dL (0.6-1.2); MAGNESIUM 2.2 mg/dL (1.7-2.8); PHOSPHORUS 4.2 mg/dL (2.5-4.6); TOTAL PROTEIN 8.2 g/dL (6.7-8.2)
[2019-01-02 07:08] LABS: SOURCE BLOOD
[2019-01-03 07:41] LABS: CMV DNA QN RT PCR 605 IU/mL
== END 2018-12-31 07:23 | disposition home or self-care (01) ==
LOC: LAB 07:22
PROVIDERS: ATTEND Internal Medicine
DX: Z94.0 Kidney transplant status (principal); Z48.298 Encounter for aftercare following other organ transplant; T86.40 Unspecified complication of liver transplant; E83.40 Disorders of magnesium metabolism, unspecified; B34.9 Viral infection, unspecified
CPT/HCPCS: 36415; 80053; 80197; 83735; 84100; 85025; 87497

== ENCOUNTER 2019-01-14 07:16 | Outpatient (CLI) | payer MEDICARE, OTHER ==
[2019-01-14 12:55] LABS: BASOPHILS % (AUTO) 2.5 %; EOSINOPHILS % (AUTO) 5.1 %; HGB - HEMOGLOBIN 11.5 g/dL (14.0-18.0); LYMPHOCYTES % (AUTO) 34.7 %; MEAN CORPUSCULAR HEMOGLOBIN 29.2 pg (27.0-31.0); MEAN CORPUSCULAR HGB CONC 30.5 g/dL (32.0-36.0); MEAN CORPUSCULAR VOLUME 95.7 fL (80.0-94.0); MEAN PLATELET VOLUME 9.3 fL (7.4-11.4); MONOCYTES % (AUTO) 12.2 %; NEUTROPHILS % (AUTO) 36.9 %; PLT - PLATELET COUNT 279 10^3/uL (130-450); RED BLOOD COUNT 3.94 10^6/uL (4.70-6.10); RED CELL DISTRIBUTION WIDTH 13.9 % (12.0-15.0); WHITE BLOOD COUNT 9.6 x10^3/uL (4.8-10.8)
[2019-01-14 13:19] LABS: ALBUMIN 3.6 g/dL (3.2-5.5); ALBUMIN/GLOBULIN RATIO 0.8 (1.0-2.2); BILIRUBIN,TOTAL 0.5 mg/dL (0.2-1.0); CALCIUM 8.8 mg/dL (8.5-10.3); CREATININE 1.9 mg/dL (0.6-1.2); MAGNESIUM 2.2 mg/dL (1.7-2.8); PHOSPHORUS 4.4 mg/dL (2.5-4.6); TOTAL PROTEIN 8.1 g/dL (6.7-8.2)
[2019-01-14 14:04] LABS: ABNORMAL LYMPHS % (MANUAL) 0 %
[2019-01-14 14:50] LABS: BAND NEUTROPHILS % (MANUAL) 3 %; BASOPHILS # (MANUAL) 0.6 10^3/uL (0-0.1); BASOPHILS % (MANUAL) 6 %; EOSINOPHILS # (MANUAL) 0.3 10^3/uL (0-0.7); LYMPHOCYTES # (MANUAL) 3.7 10^3/uL (1.5-3.5); LYMPHOCYTES % (MANUAL) 39 %; MONOCYTES # (MANUAL) 1.3 10^3/uL (0.0-1.0); MYELOCYTES % (MANUAL) 1 %
[2019-01-14 14:53] LABS: DIFFERENTIAL COMMENT MANUAL DIFFERENTIAL; PLATELET ESTIMATE, MANUAL NORMAL (130-450,000) (NORMAL); PLATELET MORPHOLOGY NORMAL APPEARANCE (NORMAL)
[2019-01-17 03:21] LABS: CMV DNA QN RT PCR 579 IU/mL; SOURCE BLOOD
== END 2019-01-14 23:59 | disposition home or self-care (01) ==
LOC: LAB.N 07:16
PROVIDERS: ATTEND Internal Medicine
DX: Z94.0 Kidney transplant status (principal); Z48.298 Encounter for aftercare following other organ transplant; T86.40 Unspecified complication of liver transplant; B34.9 Viral infection, unspecified; E83.40 Disorders of magnesium metabolism, unspecified
CPT/HCPCS: 36415; 80053; 80197; 83735; 84100; 85025; 87497

== ENCOUNTER 2019-02-11 08:00 | Outpatient (CLI) | payer MEDICARE, OTHER ==
[2019-02-11 11:54] LABS: BASOPHILS # (AUTO) 0.1 10^3/uL (0.0-0.1); BASOPHILS % (AUTO) 1.5 %; EOSINOPHILS # (AUTO) 0.4 10^3/uL (0.0-0.7); EOSINOPHILS % (AUTO) 4.3 %; HGB - HEMOGLOBIN 12.4 g/dL (14.0-18.0); LYMPHOCYTES % (AUTO) 37.1 %; MEAN CORPUSCULAR HEMOGLOBIN 29.2 pg (27.0-31.0); MEAN CORPUSCULAR HGB CONC 31.5 g/dL (32.0-36.0); MEAN CORPUSCULAR VOLUME 92.7 fL (80.0-94.0); MEAN PLATELET VOLUME 9.4 fL (7.4-11.4); MONOCYTES # (AUTO) 0.5 10^3/uL (0.0-1.0); MONOCYTES % (AUTO) 6.6 %; NEUTROPHILS # (AUTO) 4.1 10^3/uL (1.5-6.6); NEUTROPHILS % (AUTO) 50.3 %; PLT - PLATELET COUNT 270 10^3/uL (130-450); RED BLOOD COUNT 4.25 10^6/uL (4.70-6.10); RED CELL DISTRIBUTION WIDTH 14.1 % (12.0-15.0); WHITE BLOOD COUNT 8.1 x10^3/uL (4.8-10.8)
[2019-02-11 12:04] LABS: ALBUMIN 3.7 g/dL (3.2-5.5); ALBUMIN/GLOBULIN RATIO 0.9 (1.0-2.2); BILIRUBIN,TOTAL 0.8 mg/dL (0.2-1.0); CALCIUM 8.6 mg/dL (8.5-10.3); CREATININE 1.7 mg/dL (0.6-1.2); MAGNESIUM 2.1 mg/dL (1.7-2.8); PHOSPHORUS 4.4 mg/dL (2.5-4.6); TOTAL PROTEIN 7.9 g/dL (6.7-8.2)
[2019-02-13 20:00] LABS: CMV DNA QN RT PCR <200 IU/mL; SOURCE BLLOD
== END 2019-02-11 23:59 | disposition home or self-care (01) ==
LOC: LAB.N 08:00
PROVIDERS: ATTEND Internal Medicine
DX: Z94.0 Kidney transplant status (principal); Z48.298 Encounter for aftercare following other organ transplant; T86.40 Unspecified complication of liver transplant; E83.40 Disorders of magnesium metabolism, unspecified; B34.9 Viral infection, unspecified; T86.90 Unspecified complication of unspecified transplanted organ and tissue
CPT/HCPCS: 36415; 80053; 80197; 83735; 84100; 85025; 87497

== ENCOUNTER 2019-03-14 08:00 | Outpatient (CLI) | payer MEDICARE, OTHER ==
[2019-03-14 12:33] LABS: BASOPHILS # (AUTO) 0.1 10^3/uL (0.0-0.1); BASOPHILS % (AUTO) 0.9 %; EOSINOPHILS # (AUTO) 0.2 10^3/uL (0.0-0.7); EOSINOPHILS % (AUTO) 3.1 %; LYMPHOCYTES # (AUTO) 2.6 10^3/uL (1.5-3.5); LYMPHOCYTES % (AUTO) 39.8 %; MEAN CORPUSCULAR HEMOGLOBIN 29.4 pg (27.0-31.0); MEAN CORPUSCULAR HGB CONC 31.6 g/dL (32.0-36.0); MEAN CORPUSCULAR VOLUME 93.2 fL (80.0-94.0); MEAN PLATELET VOLUME 9.8 fL (7.4-11.4); MONOCYTES # (AUTO) 0.6 10^3/uL (0.0-1.0); MONOCYTES % (AUTO) 9.2 %; NEUTROPHILS % (AUTO) 46.7 %; PLT - PLATELET COUNT 303 10^3/uL (130-450); RED BLOOD COUNT 4.42 10^6/uL (4.70-6.10); RED CELL DISTRIBUTION WIDTH 13.8 % (12.0-15.0); WHITE BLOOD COUNT 6.4 x10^3/uL (4.8-10.8)
[2019-03-14 13:05] LABS: ALBUMIN 3.7 g/dL (3.2-5.5); ALBUMIN/GLOBULIN RATIO 1.1 (1.0-2.2); BILIRUBIN,TOTAL 0.7 mg/dL (0.2-1.0); CALCIUM 8.7 mg/dL (8.5-10.3); CREATININE 1.7 mg/dL (0.6-1.2); TOTAL PROTEIN 7.2 g/dL (6.7-8.2)
[2019-03-14 14:22] LABS: MICROALBUM/CREATININE RATIO,UR 18.5 ug/mg (<30.0); MICROALBUMIN,URINE 1.5 mg/dL (0-300.0); PROTEIN/CREATININE RATIO,URINE 0.1 (<=0.2)
[2019-03-17 09:28] LABS: CMV DNA QN RT PCR <200 IU/mL; SOURCE BLOOD
== END 2019-03-14 23:59 | disposition home or self-care (01) ==
LOC: LAB.N 08:00
PROVIDERS: ATTEND Internal Medicine
DX: T86.40 Unspecified complication of liver transplant (principal); Z94.0 Kidney transplant status; E83.40 Disorders of magnesium metabolism, unspecified; N39.0 Urinary tract infection, site not specified; B34.9 Viral infection, unspecified
CPT/HCPCS: 36415; 80053; 80197; 82043; 82570; 83735; 84100; 84156; 85025; 87497

== ENCOUNTER 2020-01-01 00:35 | Emergency (ER) | payer MEDICARE, OTHER ==
[2020-01-01] MEDS ORDERED: KETOROLAC 30 MG/ML VIAL IVP STA (01:03)
[2020-01-01] MEDS ORDERED: SODIUM CHLORIDE 0.9% 1,000 ML IV STA (01:03)
[2020-01-01] MEDS ORDERED: ACETAMINOPHEN 325 MG TABLET PO STA (01:04)
[2020-01-01 01:31] LABS: BASOPHILS # (AUTO) 0.1 10^3/uL (0.0-0.1); BASOPHILS % (AUTO) 0.5 %; EOSINOPHILS # (AUTO) 0.2 10^3/uL (0.0-0.7); EOSINOPHILS % (AUTO) 1.7 %; HGB - HEMOGLOBIN 16.9 g/dL (14.0-18.0); LYMPHOCYTES # (AUTO) 4.5 10^3/uL (1.5-3.5); MEAN CORPUSCULAR HEMOGLOBIN 30.1 pg (27.0-31.0); MEAN CORPUSCULAR HGB CONC 33.5 g/dL (32.0-36.0); MEAN CORPUSCULAR VOLUME 89.9 fL (80.0-94.0); MEAN PLATELET VOLUME 9.6 fL (7.4-11.4); MONOCYTES # (AUTO) 1.1 10^3/uL (0.0-1.0); MONOCYTES % (AUTO) 8.8 %; NEUTROPHILS # (AUTO) 6.8 10^3/uL (1.5-6.6); NEUTROPHILS % (AUTO) 53.1 %; PLT - PLATELET COUNT 301 10^3/uL (130-450); RED BLOOD COUNT 5.62 10^6/uL (4.70-6.10); RED CELL DISTRIBUTION WIDTH 14.1 % (12.0-15.0); WHITE BLOOD COUNT 12.9 x10^3/uL (4.8-10.8)
[2020-01-01 01:44] LABS: ALBUMIN 3.9 g/dL (3.2-5.5); ALBUMIN/GLOBULIN RATIO 1.1 (1.0-2.2); CREATININE 1.6 mg/dL (0.6-1.2); TOTAL PROTEIN 7.3 g/dL (6.7-8.2)
[2020-01-01 02:32] LABS: C. PNEUMONIAE- RESP PCR PANEL NOT DETECTED
[2020-01-01 02:35] LABS: BILIRUBIN,URINE NEGATIVE (NEGATIVE); GLUCOSE, URINE (UA) NEGATIVE (NEGATIVE); KETONES,URINE (UA) NEGATIVE (NEGATIVE); LEUKOCYTE ESTERASE, URINE NEGATIVE (NEGATIVE); NITRITE,URINE NEGATIVE (NEGATIVE); OCCULT BLOOD,URINE NEGATIVE (NEGATIVE); PH,URINE 5.5 PH (5.0-7.5); PROTEIN,URINE NEGATIVE (NEGATIVE); UROBILINOGEN,URINE 0.2 (NORMAL) E.U./dL (NORMAL)
[2020-01-01 02:37] LABS: CLARITY,URINE CLEAR (CLEAR)
--- NOTE | 2020-01-01 02:44 | ED Physician Documentation ---
History of Present Illness - Stated complaint Stated Complaint: FEVER, HEADACHE, MUSCLE ACHES - Chief complaint Chief Complaint: Heent - History obtained from History obtained from: Patient - Additonal information Additional information: Is emergency department complaining of chills and a slight fever 100 degrees orally. He states this all began today. He states he has had a runny nose, but no cough. He feels as though his sinuses are congested. No sore throat. Patient denies any shortness of breath or chest pain. No nausea or vomiting. No abdominal pain. No dysuria or back pain. Patient states he is otherwise healthy and feels mostly well, but that his made him can come in because of the fever. No sick contacts. Review of Systems Ten Systems: 10 systems reviewed and negative Constitutional: reports: Fever, Chills Eyes: reports: Reviewed and negative Ears: reports: Reviewed and negative Nose: reports: Rhinorrhea / runny nose, Congestion Throat: reports: Reviewed and negative Cardiac: reports: Reviewed and negative. denies: Chest pain / pressure Respiratory: reports: Reviewed and negative. denies: Dyspnea, Cough GI: reports: Reviewed and negative : reports: Reviewed and negative Skin: reports: Reviewed and negative Musculoskeletal: reports: Reviewed and negative Neurologic: reports: Reviewed and negative Psychiatric: reports: Reviewed and negative Endocrine: reports: Reviewed and negative Immunocompromised: reports: Reviewed and negative PD PAST MEDICAL HISTORY - Past Medical History : Renal insuffiency - Past Surgical History Past Surgical History: No - Present Medications Home Medications: Ambulatory Orders Medication Instructions Recorded Confirmed Aspirin 81 mg PO DAILY 06/04/17 01/02/20 Chlorthalidone 12.5 mg PO DAILY 01/02/20 01/02/20 Losartan Potassium 25 mg PO BID 01/02/20 01/02/20 Multivitamin [Multivitamins] 1 cap PO DAILY 01/02/20 01/02/20 Prednisone 5 mg PO DAILY 01/02/20 01/02/20 Tacrolimus [Prograf] 1 mg PO QPM 01/02/20 01/02/20 Tacrolimus [Prograf] 2 mg PO DAILY 01/02/20 01/02/20 Tamsulosin HCl [Flomax] 0.4 mg PO QPM 01/02/20 01/02/20 amLODIPine [Norvasc] 5 mg PO BID 01/02/20 01/02/20 levoFLOXacin [Levaquin] 500 mg PO QD #20 tablet 01/02/20 - Allergies Allergies/Adverse Reactions: Allergies Allergy/AdvReac Type Severity Reaction Status Date / Time pravastatin Allergy Unknown Verified 01/02/20 02:00 primidone Allergy Dizziness Verified 01/02/20 02:00 simvastatin Allergy Unknown Verified 01/02/20 02:00 zolpidem [From Ambien] Allergy Hallucinati Verified 01/02/20 02:00 ons Tubzwai-Rij-Ulq Reductase AdvReac Unknown Verified 01/02/20 02:00 Inhibitor - Social History Does the pt smoke?: No Smoking Status: Never smoker Does the pt drink ETOH?: No Does the pt have substance abuse?: No - Immunizations Immunizations are current?: Yes - POLST Patient has POLST: Yes PD ED PE NORMAL - Vitals Vital signs reviewed: Yes - General General: Alert and oriented X 3, No acute distress, Other (Pt is extremely well- appearing and in no apparent distress.) - HEENT HEENT: Atraumatic, PERRL, EOMI, Moist mucous membranes - Neck Neck: Supple, no meningeal sign - Cardiac Cardiac: RRR, No murmur, Strong equal pulses - Respiratory Respiratory: No respiratory distress, Clear bilaterally - Abdomen Abdomen: Soft, Non tender, Non distended - Back Back: No CVA TTP - Derm Derm: Normal color, Warm and dry, No rash - Extremities Extremities: No deformity, No edema, No calf tenderness / cord - Neuro Neuro: Alert and oriented X 3 - Psych Psych: Normal mood, Normal affect Results - Vitals Vitals: Oxygen O2 Source Room air - Labs Labs: Microbiology 01/01/20 01:22 Blood Culture - Preliminary Blood Acinetobacter Lwoffii 01/01/20 02:00 Blood Culture - Preliminary Blood NO GROWTH AFTER 2 DAYS Laboratory Tests 01/01/20 01/01/20 01/01/20 01:22 01:22 01:33 WBC 12.9 H RBC 5.62 Hgb 16.9 Hct 50.5 MCV 89.9 MCH 30.1 MCHC 33.5 RDW 14.1 Plt Count 301 MPV 9.6 Neut # (Auto) 6.8 H Lymph # (Auto) 4.5 H [place] # (Auto) 1.1 H Eos # (Auto) 0.2 Baso # (Auto) 0.1 Absolute Nucleated RBC 0.00 Nucleated RBC % 0.0 Sodium 135 Potassium 3.7 Chloride 103 Carbon Dioxide 22 Anion Gap 10.0 BUN 47 H Creatinine 1.6 H Estimated GFR (MDRD) 42 L Glucose 139 H Calcium 9.0 Total Bilirubin 1.0 AST 23 ALT 31 Alkaline Phosphatase 71 Total Protein 7.3 Albumin 3.9 Globulin 3.4 Albumin/Globulin Ratio 1.1 Lipase 65 H Urine Color Urine Clarity Urine pH Ur Specific [place] Urine Protein Urine Glucose (UA) Urine Ketones Urine Occult Blood Urine Nitrite Urine Bilirubin Urine Urobilinogen Ur Leukocyte Esterase Ur Microscopic Review Urine Culture Comments Nasal Adenovirus (PCR) NOT DETECTED Nasal B. parapertussis DNA (PCR) NOT DETECTED Nasal Coronavir 229E PCR NOT DETECTED Nasal Coronavir HKU1 PCR NOT DETECTED Nasal Coronavir NL63 PCR NOT DETECTED Nasal Coronavir OC43 PCR NOT DETECTED Nasal Enterovir/Rhinovir PCR NOT DETECTED Nasal Influenza B PCR NOT DETECTED Nasal Influenza A PCR NOT DETECTED Nasal Parainfluen 1 PCR NOT DETECTED Nasal Parainfluen 2 PCR NOT DETECTED Nasal Parainfluen 3 PCR NOT DETECTED Nasal Parainfluen 4 PCR NOT DETECTED Nasal RSV (PCR) NOT DETECTED Nasal B.pertussis DNA PCR NOT DETECTED Nasal C.pneumoniae (PCR) NOT DETECTED Petros Human Metapneumo PCR NOT DETECTED Nasal M.pneumoniae (PCR) NOT DETECTED Nasal SARS-CoV-2 (PCR) NOT DETECTED 01/01/20 02:28 WBC RBC Hgb Hct MCV MCH MCHC RDW Plt Count MPV Neut # (Auto) Lymph # (Auto) [place] # (Auto) Eos # (Auto) Baso # (Auto) Absolute Nucleated RBC Nucleated RBC % Sodium Potassium Chloride Carbon Dioxide Anion Gap BUN Creatinine Estimated GFR (MDRD) Glucose Calcium Total Bilirubin AST ALT Alkaline Phosphatase Total Protein Albumin Globulin Albumin/Globulin Ratio Lipase Urine Color YELLOW Urine Clarity CLEAR Urine pH 5.5 Ur Specific [place] 1.025 Urine Protein NEGATIVE Urine Glucose (UA) NEGATIVE Urine Ketones NEGATIVE Urine Occult Blood NEGATIVE Urine Nitrite NEGATIVE Urine Bilirubin NEGATIVE Urine Urobilinogen 0.2 (NORMAL) Ur Leukocyte Esterase NEGATIVE Ur Microscopic Review NOT INDICATED Urine Culture Comments NOT INDICATED Nasal Adenovirus (PCR) Nasal B. parapertussis DNA (PCR) Nasal Coronavir 229E PCR Nasal Coronavir HKU1 PCR Nasal Coronavir NL63 PCR Nasal Coronavir OC43 PCR Nasal Enterovir/Rhinovir PCR Nasal Influenza B PCR Nasal Influenza A PCR Nasal Parainfluen 1 PCR Nasal Parainfluen 2 PCR Nasal Parainfluen 3 PCR Nasal Parainfluen 4 PCR Nasal RSV (PCR) Nasal B.pertussis DNA PCR Nasal C.pneumoniae (PCR) Petros Human Metapneumo PCR Nasal M.pneumoniae (PCR) Nasal SARS-CoV-2 (PCR) - Rads (name of study) CXR Radiology: Final report received, EMP read indepedently, See rad report (neg) PD MEDICAL DECISION MAKING - ED course Complexity details: reviewed old records, reviewed results, re-evaluated patient, considered differential, d/w patient ED course: Patient was worked up with labs, viral panel, and chest x-ray and urinalysis. White blood cell count was mildly elevated at 12.9 and CMP showed mild renal insufficiency. The patient was hemodynamically stable and afebrile here in the emergency department. I discussed with the patient that at this point in time, his work-up is negative and he overall does not appear to be seriously ill at this time. We have discussed that his blood cultures are still pending and that if these are positive he will be called back. We have discussed home management of symptoms, as well as the usual indications for return. Departure - Departure Disposition: 01 Home, Self Care Clinical Impression: Febrile illness, Viral upper respiratory infection Condition: Stable Instructions: ED Viral Syndrome Comments: Extensive testing today, including blood work, chest x-ray, viral panel which includes Covid and influenza, and urinalysis all look good. You have a slight elevation of your white blood cell count, but other than this your tests are negative. Most likely, you have caught when the many viruses that go around this time of year and cause upper respiratory type symptoms. You may take Tylenol 650 mg every 4 hours or 1000 mg every 6 hours. If you develop worsening cough or shortness of breath, a painful, rigid neck with regard to flexion, or if you are developing increasingly high fevers, you should be reevaluated. However, at this point, you may rest and drink plenty of fluids at home. Please follow-up with your primary care physician. Discharge Date/Time: 01/01/20 02:52
[2020-01-01 02:53] VITALS: BP 136/95
--- NOTE | 2020-01-01 08:08 | XRAY Report ---
PROCEDURE: Chest 1 View X-Ray INDICATIONS: chest pain TECHNIQUE: One view of the chest was acquired. COMPARISON: None FINDINGS: Surgical changes and devices: None. Lungs and pleura: No pleural effusions or pneumothorax. Lungs are clear. Mediastinum: Mediastinal contours appear normal. Heart size is normal. Bones and chest wall: No suspicious bony lesions. Overlying soft tissues appear unremarkable. IMPRESSION: No acute cardiopulmonary disease process. Reviewed by: Kathrin Tee MD, PhD on 01/01/2020 8:06 AM [facility] Approved by: Kathrin Tee MD, PhD on 01/01/2020 8:06 AM [facility] Station ID: [id number]
== END 2020-01-01 02:52 | disposition home or self-care (01) ==
LOC: ED 00:35
DX: J06.9 Acute upper respiratory infection, unspecified (principal); N28.9 Disorder of kidney and ureter, unspecified
CPT/HCPCS: 0202U; 36415; 80053; 81001; 81003; 83690; 85025; 87040; 87077; 87086; 87181; 99283; 99284

== ENCOUNTER 2020-01-02 01:50 | Emergency (ER) | payer MEDICARE, OTHER ==
--- NOTE | 2020-01-02 02:04 | ED Physician Documentation ---
History of Present Illness - Stated complaint Stated Complaint: ABNORMAL LABS - Chief complaint Chief Complaint: Fever - History obtained from History obtained from: Patient - History of Present Illness Timing: Yesterday Pain level max: 2 (generalized HOLLOWAY) Pain level now: 0 Improved by: nothing Worsened by: no exacerbating factors - Additonal information Additional information: T+R from this ED yesterday (approximately 24 hours prior to this evaluation) at which time he c/o mild, generalized headache, generalized myalgias and low-grade fever (Tmax 100.4 at that time, although he was afebrile during ED evaluation). He had unremarkable workup which included CXR, UA, respiratory panel (including Coronavirus and influenza testing), and blood work. he had mild leukocytosis and mildly elevated bun+creatinine. his kidney function test abnormalities show steadily decreasing bun /creatinine levels over few years, with tonights creatinine being the lowest on [facility] records compared to past several year. [facility] called to inform ED staff that 1 of 2 blood cultures returned positive (gram negative bacilli). as a result, ED RN, after consulting with me, called patient and instructed him to return to ED for reevaluation and so he was driven to ED by private vehicle by his . at this time, he says he spiked fever this evening to Tmax 100.8 and again had mild, generalized headache, mild myalgias. denies cough or shortness or breath, he says he has some minimal sinus congestion. of note, he had a renal transplant approximately one year ago and is on medications including tacrolimus. Review of Systems Ten Systems: 10 systems reviewed and negative Constitutional: reports: Fever, Chills, Sweats, Reviewed and negative Eyes: denies: Photophobia, Discharge Nose: reports: Rhinorrhea / runny nose, Congestion Throat: denies: Sore throat Cardiac: reports: Reviewed and negative Respiratory: reports: Reviewed and negative GI: reports: Reviewed and negative : denies: Dysuria, Frequency, Hematuria Skin: denies: Rash Musculoskeletal: denies: Neck pain, Back pain Neurologic: reports: Generalized weakness (mild fatigure and generalized weakness), Headache (mild, intermittent) PD PAST MEDICAL HISTORY - Past Medical History Past Medical History: Yes : Renal insuffiency - Past Surgical History Past Surgical History: Yes Other past surgical history: kidney transplant approximately 1 year ago - Present Medications Home Medications: Ambulatory Orders Medication Instructions Recorded Confirmed Aspirin 81 mg PO DAILY 06/04/17 01/02/20 Chlorthalidone 12.5 mg PO DAILY 01/02/20 01/02/20 Losartan Potassium 25 mg PO BID 01/02/20 01/02/20 Multivitamin [Multivitamins] 1 cap PO DAILY 01/02/20 01/02/20 Prednisone 5 mg PO DAILY 01/02/20 01/02/20 Tacrolimus [Prograf] 1 mg PO QPM 01/02/20 01/02/20 Tacrolimus [Prograf] 2 mg PO DAILY 01/02/20 01/02/20 Tamsulosin HCl [Flomax] 0.4 mg PO QPM 01/02/20 01/02/20 amLODIPine [Norvasc] 5 mg PO BID 01/02/20 01/02/20 levoFLOXacin [Levaquin] 500 mg PO QD #20 tablet 01/02/20 - Allergies Allergies/Adverse Reactions: Allergies Allergy/AdvReac Type Severity Reaction Status Date / Time pravastatin Allergy Unknown Verified 01/02/20 02:00 primidone Allergy Dizziness Verified 01/02/20 02:00 simvastatin Allergy Unknown Verified 01/02/20 02:00 zolpidem [From Ambien] Allergy Hallucinati Verified 01/02/20 02:00 ons Svdweap-Iwz-Fsu Reductase AdvReac Unknown Verified 01/02/20 02:00 Inhibitor - Social History Does the pt smoke?: No Smoking Status: Never smoker Does the pt drink ETOH?: No Does the pt have substance abuse?: No - Immunizations Immunizations are current?: Yes - POLST Patient has POLST: Yes PD ED PE NORMAL - Vitals Vital signs reviewed: Yes - General General: Alert and oriented X 3 - HEENT HEENT: Atraumatic, PERRL, EOMI, Moist mucous membranes, Pharynx benign - Cardiac Cardiac: RRR, No murmur, No gallop, No rub - Respiratory Respiratory: No respiratory distress, Clear bilaterally - Abdomen Abdomen: Soft, Non tender - Back Back: No CVA TTP - Derm Derm: Normal color, Warm and dry, No rash - Neuro Neuro: Alert and oriented X 3 Eye Opening: Spontaneous Motor: Obeys Commands Verbal: Oriented GCS Score: 15 - Psych Psych: Normal mood PD ED PE EXPANDED - General General: Alert, No acute distress, Well developed/nourished Results - Vitals Vitals: Oxygen O2 Source Room air - Labs Labs: Microbiology 01/02/20 02:15 Blood Culture - Preliminary Blood NO GROWTH AFTER 1 DAY 01/02/20 02:15 Blood Culture - Preliminary Blood Laboratory Tests 01/02/20 01/02/20 01/02/20 02:15 02:15 02:15 WBC 13.6 H RBC 5.58 Hgb 17.0 Hct 49.8 MCV 89.2 MCH 30.5 MCHC 34.1 RDW 14.1 Plt Count 285 MPV 9.5 Neut # (Auto) 7.5 H Lymph # (Auto) 4.6 H Mccracken # (Auto) 1.1 H Eos # (Auto) 0.2 Baso # (Auto) 0.1 Absolute Nucleated RBC 0.00 Nucleated RBC % 0.0 Sodium 136 Potassium 3.3 L Chloride 100 L Carbon Dioxide 22 Anion Gap 14.0 H BUN 38 H Creatinine 1.4 H Estimated GFR (MDRD) 49 L Glucose 131 H Lactic Acid 0.8 Calcium 8.6 Total Bilirubin 0.8 AST 22 ALT 33 Alkaline Phosphatase 76 Total Protein 7.1 Albumin 3.8 Globulin 3.3 Albumin/Globulin Ratio 1.2 Lipase 67 H PD MEDICAL DECISION MAKING - ED course Complexity details: reviewed old records, reviewed results, re-evaluated patient, considered differential, d/w patient ED course: patient is well appearing, NAD and only c/o mild generalized headache on tonight's visit. Afebrile in ED tonight and last night's visit but he reports recorded temperatures at home to Tmax 100.8. He has preliminary result (one of two) blood culture from previous visit positive for gram negative bacilli. This result was called to ED tonight and he was called at home by ED RN and advised to return to ED for reevaluation. Tonight's repeat blood tests are again reassuring, will rx levaquin with first dose given in ED. He is comfortable with d/c home and reported resolution of his headaches prior to discharge. I explained to him that it is possible he will be called again in the event his blood culture result is finalized as positive. Departure - Departure Disposition: 01 Home, Self Care Clinical Impression: Bacteremia due to Gram-negative bacteria Condition: Good Instructions: ED Bacteremia Rule Out Prescriptions: levoFLOXacin [Levaquin] 500 mg PO QD #20 tablet Comments: The preliminary results from the blood culture that was performed on Monday shows bacteria in the blood sample; the final result is still pending and will likely be available by the end of the day today (01/01). Your tests tonight and the exam do not suggest the need to stay in the hospital, but an antibiotic is being prescribed to cover a possible bacterial infection. If your symptoms worsen in any way, you should return to the emergency department. Discharge Date/Time: 01/02/20 05:08
[2020-01-02 02:25] LABS: BASOPHILS # (AUTO) 0.1 10^3/uL (0.0-0.1); BASOPHILS % (AUTO) 0.5 %; EOSINOPHILS # (AUTO) 0.2 10^3/uL (0.0-0.7); EOSINOPHILS % (AUTO) 1.6 %; LYMPHOCYTES # (AUTO) 4.6 10^3/uL (1.5-3.5); LYMPHOCYTES % (AUTO) 34.1 %; MEAN CORPUSCULAR HEMOGLOBIN 30.5 pg (27.0-31.0); MEAN CORPUSCULAR HGB CONC 34.1 g/dL (32.0-36.0); MEAN CORPUSCULAR VOLUME 89.2 fL (80.0-94.0); MEAN PLATELET VOLUME 9.5 fL (7.4-11.4); MONOCYTES # (AUTO) 1.1 10^3/uL (0.0-1.0); MONOCYTES % (AUTO) 7.9 %; NEUTROPHILS # (AUTO) 7.5 10^3/uL (1.5-6.6); PLT - PLATELET COUNT 285 10^3/uL (130-450); RED BLOOD COUNT 5.58 10^6/uL (4.70-6.10); RED CELL DISTRIBUTION WIDTH 14.1 % (12.0-15.0); WHITE BLOOD COUNT 13.6 x10^3/uL (4.8-10.8)
[2020-01-02 02:39] LABS: ALBUMIN 3.8 g/dL (3.2-5.5); ALBUMIN/GLOBULIN RATIO 1.2 (1.0-2.2); BILIRUBIN,TOTAL 0.8 mg/dL (0.2-1.0); CALCIUM 8.6 mg/dL (8.5-10.3); CREATININE 1.4 mg/dL (0.6-1.2); TOTAL PROTEIN 7.1 g/dL (6.7-8.2)
[2020-01-02] MEDS ORDERED: levoFLOXacin 250 MG TABLET PO STA (04:52)
[2020-01-02 05:09] VITALS: BP 148/91
== END 2020-01-02 05:08 | disposition home or self-care (01) ==
LOC: ED 01:50
DX: R78.81 Bacteremia (principal); Z94.0 Kidney transplant status
CPT/HCPCS: 36415; 80053; 83605; 83690; 85025; 87040; 87077; 87181; 93005; 99284; A9270; 80048; 84443

== ENCOUNTER 2020-03-29 06:59 | Outpatient (CLI) | payer MEDICARE, OTHER ==
[2020-03-29 07:22] LABS: BASOPHILS # (AUTO) 0.1 10^3/uL (0.0-0.1); BASOPHILS % (AUTO) 0.7 %; EOSINOPHILS # (AUTO) 0.2 10^3/uL (0.0-0.7); EOSINOPHILS % (AUTO) 2.5 %; LYMPHOCYTES # (AUTO) 3.9 10^3/uL (1.5-3.5); LYMPHOCYTES % (AUTO) 40.5 %; MEAN CORPUSCULAR HEMOGLOBIN 30.5 pg (27.0-31.0); MEAN CORPUSCULAR HGB CONC 34.2 g/dL (32.0-36.0); MEAN CORPUSCULAR VOLUME 89.2 fL (80.0-94.0); MEAN PLATELET VOLUME 9.5 fL (7.4-11.4); MONOCYTES # (AUTO) 0.8 10^3/uL (0.0-1.0); MONOCYTES % (AUTO) 8.4 %; NEUTROPHILS # (AUTO) 4.6 10^3/uL (1.5-6.6); NEUTROPHILS % (AUTO) 47.7 %; PLT - PLATELET COUNT 241 10^3/uL (130-450); RED BLOOD COUNT 5.91 10^6/uL (4.70-6.10); RED CELL DISTRIBUTION WIDTH 14.4 % (12.0-15.0); WHITE BLOOD COUNT 9.7 x10^3/uL (4.8-10.8)
[2020-03-29 07:38] LABS: ALBUMIN 3.9 g/dL (3.2-5.5); ALBUMIN/GLOBULIN RATIO 1.2 (1.0-2.2); BILIRUBIN,TOTAL 0.7 mg/dL (0.2-1.0); CALCIUM 8.9 mg/dL (8.5-10.3); CREATININE 1.5 mg/dL (0.6-1.2); TOTAL PROTEIN 7.2 g/dL (6.7-8.2)
== END 2020-03-29 07:00 | disposition home or self-care (01) ==
LOC: LAB 06:59
PROVIDERS: ATTEND Internal Medicine
DX: E55.9 Vitamin D deficiency, unspecified (principal); Z94.0 Kidney transplant status; Z48.298 Encounter for aftercare following other organ transplant; T86.90 Unspecified complication of unspecified transplanted organ and tissue; E83.40 Disorders of magnesium metabolism, unspecified
CPT/HCPCS: 36415; 80053; 80197; 85025

== ENCOUNTER 2020-06-10 06:11 | Outpatient (CLI) | payer MEDICARE, OTHER ==
[2020-06-10 06:36] LABS: BASOPHILS # (AUTO) 0.1 10^3/uL (0.0-0.1); BASOPHILS % (AUTO) 0.8 %; EOSINOPHILS # (AUTO) 0.2 10^3/uL (0.0-0.7); EOSINOPHILS % (AUTO) 2.3 %; HCT - HEMATOCRIT 51.1 % (42.0-52.0); HGB - HEMOGLOBIN 17.2 g/dL (14.0-18.0); LYMPHOCYTES # (AUTO) 3.9 10^3/uL (1.5-3.5); MEAN CORPUSCULAR HEMOGLOBIN 30.4 pg (27.0-31.0); MEAN CORPUSCULAR HGB CONC 33.7 g/dL (32.0-36.0); MEAN CORPUSCULAR VOLUME 90.4 fL (80.0-94.0); MEAN PLATELET VOLUME 9.5 fL (7.4-11.4); MONOCYTES # (AUTO) 0.8 10^3/uL (0.0-1.0); MONOCYTES % (AUTO) 9.1 %; NEUTROPHILS # (AUTO) 4.1 10^3/uL (1.5-6.6); NEUTROPHILS % (AUTO) 44.6 %; PLT - PLATELET COUNT 237 10^3/uL (130-450); RED BLOOD COUNT 5.65 10^6/uL (4.70-6.10); RED CELL DISTRIBUTION WIDTH 14.9 % (12.0-15.0); WHITE BLOOD COUNT 9.1 x10^3/uL (4.8-10.8)
[2020-06-10 06:42] LABS: BILIRUBIN,URINE NEGATIVE (NEGATIVE); GLUCOSE, URINE (UA) NEGATIVE (NEGATIVE); KETONES,URINE (UA) NEGATIVE (NEGATIVE); LEUKOCYTE ESTERASE, URINE NEGATIVE (NEGATIVE); NITRITE,URINE NEGATIVE (NEGATIVE); OCCULT BLOOD,URINE NEGATIVE (NEGATIVE); PROTEIN,URINE NEGATIVE (NEGATIVE); UROBILINOGEN,URINE 0.2 (NORMAL) E.U./dL (NORMAL)
[2020-06-10 06:45] LABS: ALBUMIN 3.9 g/dL (3.2-5.5); ALBUMIN/GLOBULIN RATIO 1.2 (1.0-2.2); BILIRUBIN,TOTAL 1.1 mg/dL (0.2-1.0); CALCIUM 8.5 mg/dL (8.5-10.3); CLARITY,URINE CLEAR (CLEAR); CREATININE 1.5 mg/dL (0.6-1.2); MAGNESIUM 1.8 mg/dL (1.7-2.8); PHOSPHORUS 3.4 mg/dL (2.5-4.6); POTASSIUM 4.1 mmol/L (3.5-5.0); TOTAL PROTEIN 7.2 g/dL (6.7-8.2)
[2020-06-10 06:54] LABS: CREATININE,URINE 82.7 mg/dL; PROTEIN/CREATININE RATIO,URINE 0.1 (<=0.2)
== END 2020-06-10 06:12 | disposition home or self-care (01) ==
LOC: LAB 06:11
PROVIDERS: ATTEND Internal Medicine
DX: T86.90 Unspecified complication of unspecified transplanted organ and tissue (principal); Z94.0 Kidney transplant status; Z48.298 Encounter for aftercare following other organ transplant; E83.40 Disorders of magnesium metabolism, unspecified
CPT/HCPCS: 36415; 80053; 80197; 81003; 82570; 83735; 84100; 84156; 85025

== ENCOUNTER 2020-09-21 06:03 | Outpatient (CLI) | payer MEDICARE, OTHER ==
[2020-09-21 06:35] LABS: BASOPHILS # (AUTO) 0.1 10^3/uL (0.0-0.1); BASOPHILS % (AUTO) 0.6 %; EOSINOPHILS # (AUTO) 0.2 10^3/uL (0.0-0.7); EOSINOPHILS % (AUTO) 2.3 %; HCT - HEMATOCRIT 50.3 % (42.0-52.0); LYMPHOCYTES # (AUTO) 3.2 10^3/uL (1.5-3.5); LYMPHOCYTES % (AUTO) 39.5 %; MEAN CORPUSCULAR HEMOGLOBIN 31.3 pg (27.0-31.0); MEAN CORPUSCULAR HGB CONC 33.8 g/dL (32.0-36.0); MEAN CORPUSCULAR VOLUME 92.6 fL (80.0-94.0); MEAN PLATELET VOLUME 9.6 fL (7.4-11.4); MONOCYTES # (AUTO) 0.7 10^3/uL (0.0-1.0); NEUTROPHILS # (AUTO) 3.9 10^3/uL (1.5-6.6); NEUTROPHILS % (AUTO) 48.5 %; PLT - PLATELET COUNT 209 10^3/uL (130-450); RED BLOOD COUNT 5.43 10^6/uL (4.70-6.10); RED CELL DISTRIBUTION WIDTH 13.3 % (12.0-15.0); WHITE BLOOD COUNT 8.1 x10^3/uL (4.8-10.8)
[2020-09-21 06:53] LABS: ALBUMIN/GLOBULIN RATIO 1.3 (1.0-2.2); ALKALINE PHOSPHATASE 65 IU/L (42-121); ALT ALANINE AMINOTRANSFERASE 31 IU/L (10-60); AST ASPARTATE AMINOTRANSFERASE 22 IU/L (10-42); BILIRUBIN,TOTAL 1.2 mg/dL (0.2-1.0); BUN - BLOOD UREA NITROGEN 56 mg/dL (6-20); CALCIUM 9.3 mg/dL (8.5-10.3); CARBON DIOXIDE - CO2 20 mmol/L (21-32); CHLORIDE 108 mmol/L (101-111); CHOLESTEROL 172 mg/dL; CREATININE 1.7 mg/dL (0.6-1.2); GFR - MDRD 39 (>89); GLUCOSE 108 mg/dL (70-100); HDL CHOLESTEROL 43 mg/dL; LDL CHOLESTEROL,CALCULATED 113 mg/dL; LDL/HDL RATIO 2.6 (<3.6); MAGNESIUM 1.9 mg/dL (1.7-2.8); PHOSPHORUS 4.5 mg/dL (2.5-4.6); POTASSIUM 3.5 mmol/L (3.5-5.0); SODIUM 139 mmol/L (135-145); TRIGLYCERIDES 78 mg/dL; VLDL CHOLESTEROL 16 mg/dL
[2020-09-21 07:01] LABS: CREATININE,URINE 79.1 mg/dL; PROTEIN/CREATININE RATIO,URINE 0.1 (<=0.2)
== END 2020-09-21 06:04 | disposition home or self-care (01) ==
LOC: LAB 06:03
PROVIDERS: ATTEND Internal Medicine Nephrology
DX: D75.1 Secondary polycythemia (principal); Z94.0 Kidney transplant status; N18.31 Chronic kidney disease, stage 3a; E87.5 Hyperkalemia
CPT/HCPCS: 36415; 80053; 80061; 80197; 81599; 82306; 82570; 83721; 83735; 83970; 84100; 84156; 85025; 87799

== ENCOUNTER 2020-11-12 06:02 | Outpatient (CLI) | payer MEDICARE, OTHER ==
[2020-11-12 06:28] LABS: BASOPHILS % (AUTO) 0.5 %; EOSINOPHILS # (AUTO) 0.2 10^3/uL (0.0-0.7); EOSINOPHILS % (AUTO) 3.1 %; HCT - HEMATOCRIT 49.5 % (42.0-52.0); HGB - HEMOGLOBIN 16.4 g/dL (14.0-18.0); LYMPHOCYTES # (AUTO) 2.8 10^3/uL (1.5-3.5); LYMPHOCYTES % (AUTO) 37.8 %; MEAN CORPUSCULAR HEMOGLOBIN 30.8 pg (27.0-31.0); MEAN CORPUSCULAR HGB CONC 33.1 g/dL (32.0-36.0); MEAN PLATELET VOLUME 9.1 fL (7.4-11.4); MONOCYTES # (AUTO) 0.6 10^3/uL (0.0-1.0); MONOCYTES % (AUTO) 8.1 %; NEUTROPHILS # (AUTO) 3.7 10^3/uL (1.5-6.6); NEUTROPHILS % (AUTO) 50.1 %; PLT - PLATELET COUNT 226 10^3/uL (130-450); RED BLOOD COUNT 5.32 10^6/uL (4.70-6.10); RED CELL DISTRIBUTION WIDTH 13.2 % (12.0-15.0); WHITE BLOOD COUNT 7.4 x10^3/uL (4.8-10.8)
[2020-11-12 06:40] LABS: ALBUMIN 3.8 g/dL (3.2-5.5); ALBUMIN/GLOBULIN RATIO 1.2 (1.0-2.2); CALCIUM 8.8 mg/dL (8.5-10.3); CREATININE 1.7 mg/dL (0.6-1.2); MAGNESIUM 1.8 mg/dL (1.7-2.8); PHOSPHORUS 3.6 mg/dL (2.5-4.6); POTASSIUM 3.8 mmol/L (3.5-5.0); TOTAL PROTEIN 6.9 g/dL (6.7-8.2)
== END 2020-11-12 06:03 | disposition home or self-care (01) ==
LOC: LAB 06:02
PROVIDERS: ATTEND Internal Medicine
DX: T86.90 Unspecified complication of unspecified transplanted organ and tissue (principal); Z94.0 Kidney transplant status; Z48.298 Encounter for aftercare following other organ transplant; E83.40 Disorders of magnesium metabolism, unspecified; E55.9 Vitamin D deficiency, unspecified
CPT/HCPCS: 36415; 80053; 80197; 83735; 84100; 85025

== ENCOUNTER 2020-12-25 07:21 | Outpatient (CLI) | payer MEDICARE, OTHER ==
[2020-12-25 07:50] LABS: BASOPHILS # (AUTO) 0.1 10^3/uL (0.0-0.1); BASOPHILS % (AUTO) 0.7 %; EOSINOPHILS # (AUTO) 0.2 10^3/uL (0.0-0.7); EOSINOPHILS % (AUTO) 1.9 %; HCT - HEMATOCRIT 50.4 % (42.0-52.0); HGB - HEMOGLOBIN 16.9 g/dL (14.0-18.0); LYMPHOCYTES # (AUTO) 3.3 10^3/uL (1.5-3.5); LYMPHOCYTES % (AUTO) 36.5 %; MEAN CORPUSCULAR HEMOGLOBIN 30.6 pg (27.0-31.0); MEAN CORPUSCULAR HGB CONC 33.5 g/dL (32.0-36.0); MEAN CORPUSCULAR VOLUME 91.1 fL (80.0-94.0); MEAN PLATELET VOLUME 9.4 fL (7.4-11.4); MONOCYTES # (AUTO) 0.7 10^3/uL (0.0-1.0); MONOCYTES % (AUTO) 7.6 %; NEUTROPHILS # (AUTO) 4.9 10^3/uL (1.5-6.6); NEUTROPHILS % (AUTO) 52.9 %; PLT - PLATELET COUNT 241 10^3/uL (130-450); RED BLOOD COUNT 5.53 10^6/uL (4.70-6.10); WHITE BLOOD COUNT 9.2 x10^3/uL (4.8-10.8)
[2020-12-25 07:54] LABS: ALBUMIN 3.9 g/dL (3.2-5.5); ALBUMIN/GLOBULIN RATIO 1.2 (1.0-2.2); BILIRUBIN,TOTAL 1.2 mg/dL (0.2-1.0); CREATININE 1.6 mg/dL (0.6-1.2); MAGNESIUM 1.8 mg/dL (1.7-2.8); PHOSPHORUS 3.6 mg/dL (2.5-4.6); POTASSIUM 3.7 mmol/L (3.5-5.0); TOTAL PROTEIN 7.1 g/dL (6.7-8.2)
== END 2020-12-25 07:22 | disposition home or self-care (01) ==
LOC: LAB 07:21
PROVIDERS: ATTEND Internal Medicine
DX: T86.90 Unspecified complication of unspecified transplanted organ and tissue (principal); Z94.0 Kidney transplant status; Z48.298 Encounter for aftercare following other organ transplant; E83.40 Disorders of magnesium metabolism, unspecified
CPT/HCPCS: 36415; 80053; 80197; 83735; 84100; 85025

== ENCOUNTER 2021-01-25 06:00 | Outpatient (CLI) | payer OTHER ==
[2021-01-25 06:19] LABS: BASOPHILS % (AUTO) 0.5 %; EOSINOPHILS # (AUTO) 0.2 10^3/uL (0.0-0.7); EOSINOPHILS % (AUTO) 1.9 %; HCT - HEMATOCRIT 49.4 % (42.0-52.0); HGB - HEMOGLOBIN 16.4 g/dL (14.0-18.0); LYMPHOCYTES % (AUTO) 34.6 %; MEAN CORPUSCULAR HEMOGLOBIN 29.7 pg (27.0-31.0); MEAN CORPUSCULAR HGB CONC 33.2 g/dL (32.0-36.0); MEAN CORPUSCULAR VOLUME 89.5 fL (80.0-94.0); MEAN PLATELET VOLUME 9.3 fL (7.4-11.4); MONOCYTES # (AUTO) 0.8 10^3/uL (0.0-1.0); MONOCYTES % (AUTO) 9.4 %; NEUTROPHILS # (AUTO) 4.6 10^3/uL (1.5-6.6); NEUTROPHILS % (AUTO) 52.9 %; PLT - PLATELET COUNT 265 10^3/uL (130-450); RED BLOOD COUNT 5.52 10^6/uL (4.70-6.10); RED CELL DISTRIBUTION WIDTH 12.8 % (12.0-15.0); WHITE BLOOD COUNT 8.7 x10^3/uL (4.8-10.8)
[2021-01-25 06:35] LABS: ALBUMIN 3.9 g/dL (3.2-5.5); ALBUMIN/GLOBULIN RATIO 1.2 (1.0-2.2); BILIRUBIN,TOTAL 1.2 mg/dL (0.2-1.0); CALCIUM 8.8 mg/dL (8.5-10.3); CREATININE 1.8 mg/dL (0.6-1.2); MAGNESIUM 1.8 mg/dL (1.7-2.8); PHOSPHORUS 4.1 mg/dL (2.5-4.6); POTASSIUM 3.8 mmol/L (3.5-5.0); TOTAL PROTEIN 7.1 g/dL (6.7-8.2)
[2021-01-25 06:36] LABS: CREATININE,URINE 56.9 mg/dL; TOTAL PROTEIN,URINE TIMED < 6 mg/dL
== END 2021-01-25 06:01 | disposition home or self-care (01) ==
LOC: LAB 06:00
PROVIDERS: ATTEND Internal Medicine
DX: T86.90 Unspecified complication of unspecified transplanted organ and tissue (principal); Z48.298 Encounter for aftercare following other organ transplant; E83.40 Disorders of magnesium metabolism, unspecified; Z94.0 Kidney transplant status
CPT/HCPCS: 36415; 80053; 80197; 82570; 83735; 84100; 84156; 85025

== ENCOUNTER 2021-03-12 05:30 | Outpatient (CLI) | payer OTHER ==
[2021-03-12 06:25] LABS: BILIRUBIN,URINE NEGATIVE (NEGATIVE); GLUCOSE, URINE (UA) NEGATIVE (NEGATIVE); KETONES,URINE (UA) NEGATIVE (NEGATIVE); LEUKOCYTE ESTERASE, URINE NEGATIVE (NEGATIVE); NITRITE,URINE NEGATIVE (NEGATIVE); OCCULT BLOOD,URINE NEGATIVE (NEGATIVE); PH,URINE 5.5 PH (5.0-7.5); PROTEIN,URINE NEGATIVE (NEGATIVE); UROBILINOGEN,URINE 0.2 (NORMAL) E.U./dL (NORMAL)
[2021-03-12 06:26] LABS: BASOPHILS % (AUTO) 0.5 %; EOSINOPHILS # (AUTO) 0.1 10^3/uL (0.0-0.7); EOSINOPHILS % (AUTO) 1.7 %; HCT - HEMATOCRIT 47.4 % (42.0-52.0); HGB - HEMOGLOBIN 15.6 g/dL (14.0-18.0); LYMPHOCYTES # (AUTO) 2.3 10^3/uL (1.5-3.5); LYMPHOCYTES % (AUTO) 28.6 %; MEAN CORPUSCULAR HEMOGLOBIN 29.4 pg (27.0-31.0); MEAN CORPUSCULAR HGB CONC 32.9 g/dL (32.0-36.0); MEAN CORPUSCULAR VOLUME 89.4 fL (80.0-94.0); MEAN PLATELET VOLUME 9.5 fL (7.4-11.4); MONOCYTES # (AUTO) 0.7 10^3/uL (0.0-1.0); MONOCYTES % (AUTO) 8.3 %; NEUTROPHILS # (AUTO) 4.9 10^3/uL (1.5-6.6); NEUTROPHILS % (AUTO) 60.3 %; PLT - PLATELET COUNT 215 10^3/uL (130-450); RED CELL DISTRIBUTION WIDTH 13.6 % (12.0-15.0); WHITE BLOOD COUNT 8.1 x10^3/uL (4.8-10.8)
[2021-03-12 06:30] LABS: CLARITY,URINE CLEAR (CLEAR)
[2021-03-12 06:40] LABS: ALBUMIN 3.7 g/dL (3.2-5.5); ALBUMIN/GLOBULIN RATIO 1.2 (1.0-2.2); ALKALINE PHOSPHATASE 59 IU/L (42-121); ALT ALANINE AMINOTRANSFERASE 26 IU/L (10-60); AST ASPARTATE AMINOTRANSFERASE 16 IU/L (10-42); BUN - BLOOD UREA NITROGEN 40 mg/dL (6-20); CALCIUM 8.6 mg/dL (8.5-10.3); CARBON DIOXIDE - CO2 18 mmol/L (21-32); CHLORIDE 103 mmol/L (101-111); CHOL/HDL RATIO 3.7 (<5.0); CHOLESTEROL 158 mg/dL; CREATININE 1.6 mg/dL (0.6-1.2); GFR - MDRD 42 (>89); GLUCOSE 110 mg/dL (70-100); HDL CHOLESTEROL 43 mg/dL; LDL CHOLESTEROL,CALCULATED 99 mg/dL; LDL/HDL RATIO 2.3 (<3.6); MAGNESIUM 1.8 mg/dL (1.7-2.8); PHOSPHORUS 4.2 mg/dL (2.5-4.6); POTASSIUM 3.5 mmol/L (3.5-5.0); SODIUM 132 mmol/L (135-145); TOTAL PROTEIN 6.8 g/dL (6.7-8.2); TRIGLYCERIDES 82 mg/dL; VLDL CHOLESTEROL 16 mg/dL
[2021-03-12 06:43] LABS: CREATININE,URINE 46.4 mg/dL; TOTAL PROTEIN,URINE TIMED < 6 mg/dL
== END 2021-03-12 05:31 | disposition home or self-care (01) ==
LOC: LAB 05:30
PROVIDERS: ATTEND Internal Medicine
DX: Z94.0 Kidney transplant status (principal); E55.9 Vitamin D deficiency, unspecified; Z48.298 Encounter for aftercare following other organ transplant; T86.90 Unspecified complication of unspecified transplanted organ and tissue; B34.9 Viral infection, unspecified; Z13.9 Encounter for screening, unspecified
CPT/HCPCS: 36415; 80053; 80061; 80180; 80197; 81001; 81003; 81599; 82306; 82570; 83721; 83735; 83970; 84100; 84156; 85025; 87799

== ENCOUNTER 2021-03-15 04:19 | Outpatient (CLI) | payer MEDICARE, OTHER | END 2021-03-15 04:20 | disposition home or self-care (01) | LOC: LAB 04:19 | PROVIDERS: ATTEND Internal Medicine | DX: Z53.9 Procedure and treatment not carried out, unspecified reason (principal); Z94.0 Kidney transplant status ==

== ENCOUNTER 2021-03-15 07:07 | Outpatient (CLI) | payer OTHER | END 2021-03-15 07:08 | disposition home or self-care (01) | LOC: LAB.N 07:07 | PROVIDERS: ATTEND Internal Medicine | DX: Z94.0 Kidney transplant status (principal) | CPT/HCPCS: 81599 ==

== ENCOUNTER 2021-06-07 07:17 | Outpatient (CLI) | payer OTHER ==
[2021-06-07 12:42] LABS: BASOPHILS # (AUTO) 0.1 10^3/uL (0.0-0.1); BASOPHILS % (AUTO) 0.6 %; EOSINOPHILS # (AUTO) 0.2 10^3/uL (0.0-0.7); EOSINOPHILS % (AUTO) 1.8 %; HCT - HEMATOCRIT 49.7 % (42.0-52.0); HGB - HEMOGLOBIN 16.1 g/dL (14.0-18.0); LYMPHOCYTES # (AUTO) 2.3 10^3/uL (1.5-3.5); LYMPHOCYTES % (AUTO) 27.9 %; MEAN CORPUSCULAR HEMOGLOBIN 28.8 pg (27.0-31.0); MEAN CORPUSCULAR HGB CONC 32.4 g/dL (32.0-36.0); MEAN CORPUSCULAR VOLUME 88.9 fL (80.0-94.0); MEAN PLATELET VOLUME 10.3 fL (7.4-11.4); MONOCYTES # (AUTO) 0.7 10^3/uL (0.0-1.0); MONOCYTES % (AUTO) 8.8 %; NEUTROPHILS # (AUTO) 4.9 10^3/uL (1.5-6.6); NEUTROPHILS % (AUTO) 59.7 %; PLT - PLATELET COUNT 244 10^3/uL (130-450); RED BLOOD COUNT 5.59 10^6/uL (4.70-6.10); RED CELL DISTRIBUTION WIDTH 13.3 % (12.0-15.0); WHITE BLOOD COUNT 8.2 x10^3/uL (4.8-10.8)
[2021-06-07 12:50] LABS: BILIRUBIN,URINE NEGATIVE (NEGATIVE); GLUCOSE, URINE (UA) NEGATIVE (NEGATIVE); KETONES,URINE (UA) NEGATIVE (NEGATIVE); LEUKOCYTE ESTERASE, URINE NEGATIVE (NEGATIVE); NITRITE,URINE NEGATIVE (NEGATIVE); OCCULT BLOOD,URINE NEGATIVE (NEGATIVE); PH,URINE 5.5 PH (5.0-7.5); PROTEIN,URINE NEGATIVE (NEGATIVE); UROBILINOGEN,URINE 0.2 (NORMAL) E.U./dL (NORMAL)
[2021-06-07 12:53] LABS: CLARITY,URINE CLEAR (CLEAR)
[2021-06-07 12:54] LABS: ALBUMIN 4.1 g/dL (3.2-5.5); ALBUMIN/GLOBULIN RATIO 1.3 (1.0-2.2); CALCIUM 9.4 mg/dL (8.5-10.3); CREATININE 1.6 mg/dL (0.6-1.2); MAGNESIUM 1.6 mg/dL (1.7-2.8); PHOSPHORUS 4.2 mg/dL (2.5-4.6); TOTAL PROTEIN 7.3 g/dL (6.7-8.2)
[2021-06-07 12:57] LABS: BACTERIA,URINE Few /HPF (None Seen); RBC,URINE None Seen /HPF (0-5); SQUAMOUS EPITHELIAL CELL,UR RARE Squamous (<= Few); WBC,URINE 0-3 /HPF (0-3)
[2021-06-07 13:18] LABS: CREATININE,URINE 89.8 mg/dL; PROTEIN/CREATININE RATIO,URINE 0.1 (<=0.2)
== END 2021-06-07 07:18 | disposition home or self-care (01) ==
LOC: LAB.N 07:17
PROVIDERS: ATTEND Internal Medicine Nephrology
DX: B33.8 Other specified viral diseases (principal); K21.9 Gastro-esophageal reflux disease without esophagitis; D75.1 Secondary polycythemia; E87.2 Acidosis; N18.31 Chronic kidney disease, stage 3a; Z94.0 Kidney transplant status
CPT/HCPCS: 36415; 80053; 80197; 81001; 82570; 83735; 84100; 84156; 85025; 87086

== ENCOUNTER 2021-10-06 05:23 | Outpatient (CLI) | payer SELFPAY ==
[2021-10-06 06:14] LABS: BASOPHILS % (AUTO) 0.4 %; EOSINOPHILS # (AUTO) 0.1 10^3/uL (0.0-0.7); EOSINOPHILS % (AUTO) 1.4 %; HCT - HEMATOCRIT 48.5 % (42.0-52.0); MEAN CORPUSCULAR HEMOGLOBIN 29.7 pg (27.0-31.0); MEAN PLATELET VOLUME 9.9 fL (7.4-11.4); MONOCYTES # (AUTO) 0.7 10^3/uL (0.0-1.0); MONOCYTES % (AUTO) 7.4 %; NEUTROPHILS # (AUTO) 6.4 10^3/uL (1.5-6.6); NEUTROPHILS % (AUTO) 69.5 %; PLT - PLATELET COUNT 229 10^3/uL (130-450); RED BLOOD COUNT 5.39 10^6/uL (4.70-6.10); RED CELL DISTRIBUTION WIDTH 13.2 % (12.0-15.0); WHITE BLOOD COUNT 9.3 x10^3/uL (4.8-10.8)
[2021-10-06 06:20] LABS: BILIRUBIN,URINE NEGATIVE (NEGATIVE); GLUCOSE, URINE (UA) NEGATIVE (NEGATIVE); KETONES,URINE (UA) NEGATIVE (NEGATIVE); LEUKOCYTE ESTERASE, URINE NEGATIVE (NEGATIVE); NITRITE,URINE NEGATIVE (NEGATIVE); OCCULT BLOOD,URINE NEGATIVE (NEGATIVE); PROTEIN,URINE NEGATIVE (NEGATIVE); UROBILINOGEN,URINE 0.2 (NORMAL) E.U./dL (NORMAL)
[2021-10-06 06:21] LABS: CLARITY,URINE CLEAR (CLEAR)
[2021-10-06 06:26] LABS: BACTERIA,URINE None Seen /HPF (None Seen); RBC,URINE None Seen /HPF (0-5); SQUAMOUS EPITHELIAL CELL,UR RARE Squamous (<= Few); WBC,URINE 0-3 /HPF (0-3)
[2021-10-06 06:31] LABS: ALBUMIN 3.7 g/dL (3.2-5.5); ALBUMIN/GLOBULIN RATIO 1.2 (1.0-2.2); ALKALINE PHOSPHATASE 51 IU/L (42-121); ALT ALANINE AMINOTRANSFERASE 19 IU/L (10-60); AST ASPARTATE AMINOTRANSFERASE 15 IU/L (10-42); BILIRUBIN,TOTAL 0.9 mg/dL (0.2-1.0); BUN - BLOOD UREA NITROGEN 37 mg/dL (6-20); CARBON DIOXIDE - CO2 22 mmol/L (21-32); CHLORIDE 103 mmol/L (101-111); CHOL/HDL RATIO 3.1 (<5.0); CHOLESTEROL 166 mg/dL; CREATININE 1.5 mg/dL (0.6-1.2); GFR - MDRD 45 (>89); GLUCOSE 126 mg/dL (70-100); HDL CHOLESTEROL 53 mg/dL; LDL CHOLESTEROL,CALCULATED 104 mg/dL; MAGNESIUM 1.8 mg/dL (1.7-2.8); SODIUM 134 mmol/L (135-145); TOTAL PROTEIN 6.9 g/dL (6.7-8.2); TRIGLYCERIDES 44 mg/dL; VLDL CHOLESTEROL 9 mg/dL
[2021-10-06 06:41] LABS: CREATININE,URINE 48.5 mg/dL
[2021-10-06 06:42] LABS: TOTAL PROTEIN,URINE TIMED < 6 mg/dL
[2021-10-06 08:53] LABS: ESTIMATED AVERAGE GLUCOSE 148 mg/dL (70-100); HEMOGLOBIN A1c% 6.8 % (4.27-6.07)
[2021-10-28 11:09] LABS: MYCOPHENOLIC ACID 3.8 ug/mL (1.0-3.5)
== END 2021-10-06 05:24 | disposition home or self-care (01) ==
LOC: LAB.N 05:23
PROVIDERS: ATTEND Internal Medicine
DX: T86.10 Unspecified complication of kidney transplant (principal); E55.9 Vitamin D deficiency, unspecified; N39.0 Urinary tract infection, site not specified; E13.9 Other specified diabetes mellitus without complications; B34.9 Viral infection, unspecified
CPT/HCPCS: 36415; 80053; 80061; 80180; 80197; 81001; 81599; 82306; 82570; 83036; 83721; 83735; 83970; 84100; 84156; 85025; 87086; 87799

== ENCOUNTER 2022-01-17 06:09 | Outpatient (CLI) | payer OTHER ==
[2022-01-17 07:03] LABS: BASOPHILS # (AUTO) 0.1 10^3/uL (0.0-0.1); BASOPHILS % (AUTO) 0.6 %; EOSINOPHILS # (AUTO) 0.2 10^3/uL (0.0-0.7); EOSINOPHILS % (AUTO) 2.5 %; HCT - HEMATOCRIT 49.2 % (42.0-52.0); HGB - HEMOGLOBIN 16.1 g/dL (14.0-18.0); LYMPHOCYTES # (AUTO) 2.4 10^3/uL (1.5-3.5); LYMPHOCYTES % (AUTO) 28.1 %; MEAN CORPUSCULAR HGB CONC 32.7 g/dL (32.0-36.0); MEAN CORPUSCULAR VOLUME 88.6 fL (80.0-94.0); MEAN PLATELET VOLUME 9.5 fL (7.4-11.4); MONOCYTES # (AUTO) 0.7 10^3/uL (0.0-1.0); MONOCYTES % (AUTO) 8.5 %; NEUTROPHILS # (AUTO) 5.1 10^3/uL (1.5-6.6); NEUTROPHILS % (AUTO) 59.8 %; PLT - PLATELET COUNT 242 10^3/uL (130-450); RED BLOOD COUNT 5.55 10^6/uL (4.70-6.10); RED CELL DISTRIBUTION WIDTH 13.1 % (12.0-15.0); WHITE BLOOD COUNT 8.5 x10^3/uL (4.8-10.8)
[2022-01-17 07:17] LABS: ALBUMIN 3.8 g/dL (3.2-5.5); ALBUMIN/GLOBULIN RATIO 1.3 (1.0-2.2); BILIRUBIN,TOTAL 0.6 mg/dL (0.2-1.0); CALCIUM 8.8 mg/dL (8.5-10.3); CREATININE 1.7 mg/dL (0.6-1.2); PHOSPHORUS 4.1 mg/dL (2.5-4.6); POTASSIUM 3.8 mmol/L (3.5-5.0); TOTAL PROTEIN 6.7 g/dL (6.7-8.2)
== END 2022-01-17 06:10 | disposition home or self-care (01) ==
LOC: LAB 06:09
DX: E83.40 Disorders of magnesium metabolism, unspecified (principal); T86.40 Unspecified complication of liver transplant; Z94.0 Kidney transplant status; Z48.298 Encounter for aftercare following other organ transplant
CPT/HCPCS: 36415; 80053; 80197; 83735; 84100; 85025

== ENCOUNTER 2022-02-04 07:07 | Outpatient (CLI) | payer OTHER ==
[2022-02-04 12:14] LABS: BASOPHILS % (AUTO) 0.4 %; EOSINOPHILS # (AUTO) 0.2 10^3/uL (0.0-0.7); EOSINOPHILS % (AUTO) 2.3 %; HCT - HEMATOCRIT 47.8 % (42.0-52.0); HGB - HEMOGLOBIN 15.3 g/dL (14.0-18.0); LYMPHOCYTES # (AUTO) 2.4 10^3/uL (1.5-3.5); LYMPHOCYTES % (AUTO) 30.5 %; MEAN CORPUSCULAR HEMOGLOBIN 28.9 pg (27.0-31.0); MEAN CORPUSCULAR VOLUME 90.4 fL (80.0-94.0); MEAN PLATELET VOLUME 10.6 fL (7.4-11.4); MONOCYTES # (AUTO) 0.7 10^3/uL (0.0-1.0); MONOCYTES % (AUTO) 8.3 %; NEUTROPHILS # (AUTO) 4.6 10^3/uL (1.5-6.6); NEUTROPHILS % (AUTO) 58.1 %; PLT - PLATELET COUNT 236 10^3/uL (130-450); RED BLOOD COUNT 5.29 10^6/uL (4.70-6.10); RED CELL DISTRIBUTION WIDTH 13.3 % (12.0-15.0); WHITE BLOOD COUNT 7.9 x10^3/uL (4.8-10.8)
[2022-02-04 12:33] LABS: BILIRUBIN,URINE NEGATIVE (NEGATIVE); GLUCOSE, URINE (UA) NEGATIVE (NEGATIVE); KETONES,URINE (UA) NEGATIVE (NEGATIVE); LEUKOCYTE ESTERASE, URINE NEGATIVE (NEGATIVE); NITRITE,URINE NEGATIVE (NEGATIVE); OCCULT BLOOD,URINE NEGATIVE (NEGATIVE); PROTEIN,URINE NEGATIVE (NEGATIVE); UROBILINOGEN,URINE 0.2 (NORMAL) E.U./dL (NORMAL)
[2022-02-04 12:39] LABS: CLARITY,URINE CLEAR (CLEAR)
[2022-02-04 12:41] LABS: CREATININE,URINE 76.6 mg/dL
[2022-02-04 12:47] LABS: POTASSIUM 3.8 mmol/L (3.5-5.0)
[2022-02-04 12:49] LABS: TOTAL PROTEIN,URINE TIMED < 6 mg/dL
[2022-02-04 14:16] LABS: ALBUMIN 3.7 g/dL (3.2-5.5); ALBUMIN/GLOBULIN RATIO 1.2 (1.0-2.2); BILIRUBIN,TOTAL 1.1 mg/dL (0.2-1.0); CREATININE 1.5 mg/dL (0.6-1.2); MAGNESIUM 1.6 mg/dL (1.7-2.8); PHOSPHORUS 3.8 mg/dL (2.5-4.6); TOTAL PROTEIN 6.8 g/dL (6.7-8.2)
[2022-02-08 13:09] LABS: BK QUANTITATION PCR Negative (Negative)
== END 2022-02-04 07:08 | disposition home or self-care (01) ==
LOC: LAB.N 07:07
PROVIDERS: ATTEND Internal Medicine Nephrology
DX: N18.31 Chronic kidney disease, stage 3a (principal); B33.8 Other specified viral diseases; E87.20 Acidosis, unspecified; Z94.0 Kidney transplant status
CPT/HCPCS: 36415; 80053; 80197; 81001; 81003; 81599; 82570; 83735; 84100; 84156; 85025; 87086; 87799

== ENCOUNTER 2022-03-29 07:26 | Outpatient (CLI) | payer OTHER ==
[2022-03-29 11:59] LABS: BASOPHILS % (AUTO) 0.5 %; EOSINOPHILS # (AUTO) 0.2 10^3/uL (0.0-0.7); EOSINOPHILS % (AUTO) 2.1 %; HGB - HEMOGLOBIN 15.5 g/dL (14.0-18.0); LYMPHOCYTES # (AUTO) 2.2 10^3/uL (1.5-3.5); LYMPHOCYTES % (AUTO) 27.5 %; MEAN CORPUSCULAR HEMOGLOBIN 28.9 pg (27.0-31.0); MEAN CORPUSCULAR HGB CONC 31.6 g/dL (32.0-36.0); MEAN CORPUSCULAR VOLUME 91.2 fL (80.0-94.0); MEAN PLATELET VOLUME 10.4 fL (7.4-11.4); MONOCYTES # (AUTO) 0.7 10^3/uL (0.0-1.0); MONOCYTES % (AUTO) 8.9 %; NEUTROPHILS # (AUTO) 4.8 10^3/uL (1.5-6.6); NEUTROPHILS % (AUTO) 60.6 %; PLT - PLATELET COUNT 223 10^3/uL (130-450); RED BLOOD COUNT 5.37 10^6/uL (4.70-6.10); RED CELL DISTRIBUTION WIDTH 13.3 % (12.0-15.0)
[2022-03-29 12:35] LABS: ALBUMIN 3.8 g/dL (3.2-5.5); ALBUMIN/GLOBULIN RATIO 1.2 (1.0-2.2); BILIRUBIN,TOTAL 1.4 mg/dL (0.2-1.0); CALCIUM 9.6 mg/dL (8.5-10.3); CREATININE 1.6 mg/dL (0.6-1.2); MAGNESIUM 1.8 mg/dL (1.7-2.8); PHOSPHORUS 4.1 mg/dL (2.5-4.6); POTASSIUM 3.8 mmol/L (3.5-5.0)
[2022-03-29 12:39] LABS: BILIRUBIN,URINE NEGATIVE (NEGATIVE); GLUCOSE, URINE (UA) NEGATIVE (NEGATIVE); KETONES,URINE (UA) NEGATIVE (NEGATIVE); LEUKOCYTE ESTERASE, URINE NEGATIVE (NEGATIVE); NITRITE,URINE NEGATIVE (NEGATIVE); OCCULT BLOOD,URINE NEGATIVE (NEGATIVE); PROTEIN,URINE NEGATIVE (NEGATIVE); UROBILINOGEN,URINE 0.2 (NORMAL) E.U./dL (NORMAL)
[2022-03-29 12:52] LABS: BACTERIA,URINE None Seen /HPF (None Seen); CLARITY,URINE CLEAR (CLEAR); RBC,URINE None Seen /HPF (0-5); SQUAMOUS EPITHELIAL CELL,UR NONE SEEN (<= Few); WBC,URINE 0-3 /HPF (0-3)
[2022-03-29 13:01] LABS: CREATININE,URINE 56.4 mg/dL
[2022-03-29 13:36] LABS: TOTAL PROTEIN,URINE TIMED < 6 mg/dL
== END 2022-03-29 07:27 | disposition home or self-care (01) ==
LOC: LAB.N 07:26
PROVIDERS: ATTEND Internal Medicine Nephrology
DX: N18.31 Chronic kidney disease, stage 3a (principal); E87.20 Acidosis, unspecified; B33.8 Other specified viral diseases; Z94.0 Kidney transplant status
CPT/HCPCS: 36415; 80053; 80197; 81001; 82570; 83735; 84100; 84156; 85025; 87086

== ENCOUNTER 2022-07-24 07:31 | Emergency (ER) | payer MEDICAID, MEDICARE, OTHER ==
--- OUTSIDE RECORDS SUMMARY | 2022-07-24 07:41 | EXTERNAL MEDICAL SUMMARY RPT | Continuity of Care Document ---
Author Name Unknown Address [address] [place] [address] Phone Organization [facility] [place] Address [address] [place] [address] Phone Care Team Providers Care Communications Project Lead Name Role Phone Jenni Stoll Unavailable Unavailable Allergies and Intolerances date description facility type (no date) lisinopril [facility] (unknown) (no date) primidone [facility] (unknown) (no date) simvastatin [facility] (unknown) (no date) zolpidem [facility] (unknown) Medications date description facility 2022-07-10 00:00 Benzonatate [facility] Problems date description facility 2022-07-12 00:00 Neck sprain [facility] 2022-07-12 00:00 Sprain of right shoulder [facility] Procedures date description facility 2022-07-12 00:00 XR shoulder right, 2+ views [facility] 2022-07-12 00:00 Computed tomography of head or brain without contrast [facility] 2022-07-12 00:00 X-ray of chest, single view [facility] 2022-07-12 00:00 Computed tomography of cervical spine without contrast [facility] Results/Labs test date author facility value unit interpretation Result panel 1 (unknown) (no date) (unknown) [facility] (no value) (units unknown) (unknown) Result panel 2 (unknown) (no date) (unknown) [facility] (no value) (units unknown) (unknown) Result panel 3 (unknown) (no date) (unknown) [facility] (no value) (units unknown) (unknown) Result panel 4 (unknown) (no date) (unknown) [facility] (no value) (units unknown) (unknown) Result panel 5 (unknown) (no date) (unknown) [facility] (no value) (units unknown) (unknown) Result panel 6 (unknown) (no date) (unknown) [facility] (no value) (units unknown) (unknown) Result panel 7 (unknown) (no date) (unknown) [facility] (no value) (units unknown) (unknown) Result panel 8 (unknown) (no date) (unknown) [facility] (no value) (units unknown) (unknown) Result panel 9 (unknown) (no date) (unknown) [facility] (no value) (units unknown) (unknown) Result panel 10 (unknown) (no date) (unknown) [facility] (no value) (units unknown) (unknown) Result panel 11 (unknown) (no date) (unknown) [facility] (no value) (units unknown) (unknown) Result panel 12 (unknown) (no date) (unknown) [facility] (no value) (units unknown) (unknown) Result panel 13 (unknown) (no date) (unknown) [facility] (no value) (units unknown) (unknown) Result panel 14 (unknown) (no date) (unknown) [facility] (no value) (units unknown) (unknown) Result panel 15 (unknown) (no date) (unknown) [facility] (no value) (units unknown) (unknown) Result panel 16 (unknown) (no date) (unknown) [facility] (no value) (units unknown) (unknown) Result panel 17 (unknown) (no date) (unknown) [facility] (no value) (units unknown) (unknown) Result panel 18 (unknown) (no date) (unknown) [facility] (no value) (units unknown) (unknown) Result panel 19 (unknown) (no date) (unknown) [facility] (no value) (units unknown) (unknown) Result panel 20 (unknown) (no date) (unknown) [facility] (no value) (units unknown) (unknown) Result panel 21 (unknown) (no date) (unknown) [facility] (no value) (units unknown) (unknown) Result panel 22 (unknown) (no date) (unknown) [facility] (no value) (units unknown) (unknown) Result panel 23 (unknown) (no date) (unknown) [facility] (no value) (units unknown) (unknown) Result panel 24 (unknown) (no date) (unknown) [facility] (no value) (units unknown) (unknown) Result panel 25 (unknown) (no date) (unknown) [facility] (no value) (units unknown) (unknown) Result panel 26 (unknown) (no date) (unknown) [facility] (no value) (units unknown) (unknown) Result panel 27 (unknown) (no date) (unknown) [facility] (no value) (units unknown) (unknown) Result panel 28 (unknown) (no date) (unknown) [facility] (no value) (units unknown) (unknown) Result panel 29 (unknown) (no date) (unknown) [facility] (no value) (units unknown) (unknown) Result panel 30 (unknown) (no date) (unknown) [facility] (no value) (units unknown) (unknown) Result panel 31 (unknown) (no date) (unknown) [facility] (no value) (units unknown) (unknown) Result panel 32 (unknown) (no date) (unknown) [facility] (no value) (units unknown) (unknown) Result panel 33 (unknown) (no date) (unknown) [facility] (no value) (units unknown) (unknown) Result panel 34 (unknown) (no date) (unknown) [facility] (no value) (units unknown) (unknown) Result panel 35 (unknown) (no date) (unknown) [facility] (no value) (units unknown) (unknown) Result panel 36 (unknown) (no date) (unknown) [facility] (no value) (units unknown) (unknown) Result panel 37 (unknown) (no date) (unknown) [facility] (no value) (units unknown) (unknown) Result panel 38 (unknown) (no date) (unknown) [facility] (no value) (units unknown) (unknown) Result panel 39 (unknown) (no date) (unknown) [facility] (no value) (units unknown) (unknown) Result panel 40 (unknown) (no date) (unknown) [facility] (no value) (units unknown) (unknown) Result panel 41 (unknown) (no date) (unknown) [facility] (no value) (units unknown) (unknown) Result panel 42 (unknown) (no date) (unknown) [facility] (no value) (units unknown) (unknown) Result panel 43 (unknown) (no date) (unknown) [facility] (no value) (units unknown) (unknown) Result panel 44 (unknown) (no date) (unknown) [facility] (no value) (units unknown) (unknown) Result panel 45 (unknown) (no date) (unknown) [facility] (no value) (units unknown) (unknown) Result panel 46 (unknown) (no date) (unknown) [facility] (no value) (units unknown) (unknown) Result panel 47 (unknown) (no date) (unknown) [facility] (no value) (units unknown) (unknown) Result panel 48 (unknown) (no date) (unknown) [facility] (no value) (units unknown) (unknown) Result panel 49 (unknown) (no date) (unknown) [facility] (no value) (units unknown) (unknown) Result panel 50 (unknown) (no date) (unknown) [facility] (no value) (units unknown) (unknown) Result panel 51 (unknown) (no date) (unknown) [facility] (no value) (units unknown) (unknown) Result panel 52 (unknown) (no date) (unknown) [facility] (no value) (units unknown) (unknown) Result panel 53 (unknown) (no date) (unknown) [facility] (no value) (units unknown) (unknown) Result panel 54 (unknown) (no date) (unknown) [facility] (no value) (units unknown) (unknown) Result panel 55 (unknown) (no date) (unknown) [facility] (no value) (units unknown) (unknown) Result panel 56 (unknown) (no date) (unknown) [facility] (no value) (units unknown) (unknown) Result panel 57 (unknown) (no date) (unknown) [facility] (no value) (units unknown) (unknown) Result panel 58 (unknown) (no date) (unknown) [facility] (no value) (units unknown) (unknown) Result panel 59 (unknown) (no date) (unknown) [facility] (no value) (units unknown) (unknown) Result panel 60 (unknown) (no date) (unknown) [facility] (no value) (units unknown) (unknown) Result panel 61 (unknown) (no date) (unknown) [facility] (no value) (units unknown) (unknown) Result panel 62 (unknown) (no date) (unknown) [facility] (no value) (units unknown) (unknown) Result panel 63 (unknown) (no date) (unknown) [facility] (no value) (units unknown) (unknown) Result panel 64 (unknown) (no date) (unknown) [facility] (no value) (units unknown) (unknown) Result panel 65 (unknown) (no date) (unknown) [facility] (no value) (units unknown) (unknown) Result panel 66 (unknown) (no date) (unknown) [facility] (no value) (units unknown) (unknown) Result panel 67 (unknown) (no date) (unknown) [facility] (no value) (units unknown) (unknown) Result panel 68 (unknown) (no date) (unknown) [facility] (no value) (units unknown) (unknown) Result panel 69 (unknown) (no date) (unknown) [facility] (no value) (units unknown) (unknown) Result panel 70 (unknown) (no date) (unknown) [facility] (no value) (units unknown) (unknown) Result panel 71 (unknown) (no date) (unknown) [facility] (no value) (units unknown) (unknown) Result panel 72 (unknown) (no date) (unknown) [facility] (no value) (units unknown) (unknown) Result panel 73 (unknown) (no date) (unknown) [facility] (no value) (units unknown) (unknown) Result panel 74 (unknown) (no date) (unknown) [facility] (no value) (units unknown) (unknown) Result panel 75 (unknown) (no date) (unknown) [facility] (no value) (units unknown) (unknown) Result panel 76 (unknown) (no date) (unknown) [facility] (no value) (units unknown) (unknown) Result panel 77 (unknown) (no date) (unknown) [facility] (no value) (units unknown) (unknown) Result panel 78 (unknown) (no date) (unknown) [facility] (no value) (units unknown) (unknown) Result panel 79 (unknown) (no date) (unknown) [facility] (no value) (units unknown) (unknown) Result panel 80 (unknown) (no date) (unknown) [facility] (no value) (units unknown) (unknown) Result panel 81 (unknown) (no date) (unknown) (unknown) (no value) (units unknown) (unknown) (unknown) (no date) (unknown) (unknown) 07/10/22 (units unknown) (unknown) (unknown) (no date) (unknown) (unknown) [id number] (units unknown) (unknown) (unknown) (no date) (unknown) (unknown) Acromioclavicular joint separation, type 1 (units unknown) (unknown) (unknown) (no date) (unknown) (unknown) Age/Sex: 81 / M Date of Service: (units unknown) (unknown) (unknown) (no date) (unknown) (unknown) Allergies (units unknown) (unknown) (unknown) (no date) (unknown) (unknown) [facility] (units unknown) (unknown) (unknown) (no date) (unknown) (unknown) [place] [address] (units unknown) (unknown) (unknown) (no date) (unknown) (unknown) Attending Dr: Tico FORBES (units unknown) (unknown) (unknown) (no date) (unknown) (unknown) : 1940 Acct:[id number] (units unknown) (unknown) (unknown) (no date) (unknown) (unknown) Dept at . (units unknown) (unknown) (unknown) (no date) (unknown) (unknown) Documented By: Wang Pennington 07/10/22 1223 (units unknown) (unknown) (unknown) (no date) (unknown) (unknown) Draft (units unknown) (unknown) (unknown) (no date) (unknown) (unknown) Facet arthropathy, lumbar (units unknown) (unknown) (unknown) (no date) (unknown) (unknown) Family History (units unknown) (unknown) (unknown) (no date) (unknown) (unknown) Father Stroke (units unknown) (unknown) (unknown) (no date) (unknown) (unknown) Intake Note: (units unknown) (unknown) (unknown) (no date) (unknown) (unknown) Intake performed by: Lakshmi Coleman (units unknown) (unknown) (unknown) (no date) (unknown) (unknown) Intake (units unknown) (unknown) (unknown) (no date) (unknown) (unknown) Intake- Clincial Staff (units unknown) (unknown) (unknown) (no date) (unknown) (unknown) Loc: [facility] (units unknown) (unknown) (unknown) (no date) (unknown) (unknown) Medical History (units unknown) (unknown) (unknown) (no date) (unknown) (unknown) Mother Hear t disease (units unknown) (unknown) (unknown) (no date) (unknown) (unknown) Other intervertebral disc displacement, lumbosacral region (units unknown) (unknown) (unknown) (no date) (unknown) (unknown) PFSH (units unknown) (unknown) (unknown) (no date) (unknown) (unknown) Patient: Fran Muhammad MR#: [id number] (units unknown) (unknown) (unknown) (no date) (unknown) (unknown) Reason For Visit (units unknown) (unknown) (unknown) (no date) (unknown) (unknown) Right shoulder injury (units unknown) (unknown) (unknown) (no date) (unknown) (unknown) Signed By: (units unknown) (unknown) (unknown) (no date) (unknown) (unknown) Smoking Status: Nilsa escalante smoker (units unknown) (unknown) (unknown) (no date) (unknown) (unknown) Social History (units unknown) (unknown) (unknown) (no date) (unknown) (unknown) This note may have been all or partially generated using voice recognition (units unknown) (unknown) (unknown) (no date) (unknown) (unknown) Tobacco + Substance Use (units unknown) (unknown) (unknown) (no date) (unknown) (unknown) Tobacco Status (units unknown) (unknown) (unknown) (no date) (unknown) (unknown) Visit Reasons: cough tired x1mo (units unknown) (unknown) (unknown) (no date) (unknown) (unknown) [facility] In [facility] Visit (units unknown) (unknown) (unknown) (no date) (unknown) (unknown) alcohol intake: former (units unknown) (unknown) (unknown) (no date) (unknown) (unknown) have occurred. If there are any questions, please contact the Medical Records (units unknown) (unknown) (unknown) (no date) (unknown) (unknown) lisinopril Adverse Reaction (Intermediate, Verified 07/05/20 09:54) (units unknown) (unknown) (unknown) (no date) (unknown) (unknown) marital status: (units unknown) (unknown) (unknown) (no date) (unknown) (unknown) may occur. Occasiona l wrong-word or 'sound-alike' substitutions may have (units unknown) (unknown) (unknown) (no date) (unknown) (unknown) occurred due to the inherent limitations of voice recognition software. Please (units unknown) (unknown) (unknown) (no date) (unknown) (unknown) primidone Adverse Reaction (Intermediate, Verified 07/05/20 09:54) (units unknown) (unknown) (unknown) (no date) (unknown) (unknown) pt (units unknown) (unknown) (unknown) (no date) (unknown) (unknown) read the note carefully and recognize, using context, where these substitutions (units unknown) (unknown) (unknown) (no date) (unknown) (unknown) simvastatin Adverse Reaction (Intermediate, Verified 07/05/20 09:54) (units unknown) (unknown) (unknown) (no date) (unknown) (unknown) software. Although every effort is made to edit content, testing consultant errors (units unknown) (unknown) (unknown) (no date) (unknown) (unknown) tree pollen Allergy (Intermediate, Uncoded 07/05/20 09:54) (units unknown) (unknown) (unknown) (no date) (unknown) (unknown) zolpidem [From Ambien] Adverse Reaction (Intermediate, Verified 07/05/20 09:54) (units unknown) (unknown) Result panel 82 (unknown) (no date) (unknown) (unknown) (no value) (units unknown) (unknown) (unknown) (no date) (unknown) (unknown) 07/10/22 (units unknown) (unknown) (unknown) (no date) (unknown) (unknown) [id number] (units unknown) (unknown) (unknown) (no date) (unknown) (unknown) Acromioclavicular joint separation, type 1 (units unknown) (unknown) (unknown) (no date) (unknown) (unknown) Age/Sex: 81 / M Date of Service: (units unknown) (unknown) (unknown) (no date) (unknown) (unknown) Allergies (units unknown) (unknown) (unknown) (no date) (unknown) (unknown) [facility] (units unknown) (unknown) (unknown) (no date) (unknown) (unknown) [place] [address] (units unknown) (unknown) (unknown) (no date) (unknown) (unknown) Attending Dr: Tico FORBES (units unknown) (unknown) (unknown) (no date) (unknown) (unknown) : 1940 Acct:[id number] (units unknown) (unknown) (unknown) (no date) (unknown) (unknown) Dept at . (units unknown) (unknown) (unknown) (no date) (unknown) (unknown) Documented By: Wang Pennington 07/10/22 1223 (units unknown) (unknown) (unknown) (no date) (unknown) (unknown) Draft (units unknown) (unknown) (unknown) (no date) (unknown) (unknown) Facet arthropathy, lumbar (units unknown) (unknown) (unknown) (no date) (unknown) (unknown) Family History (units unknown) (unknown) (unknown) (no date) (unknown) (unknown) Father Stroke (units unknown) (unknown) (unknown) (no date) (unknown) (unknown) Intake Note: (units unknown) (unknown) (unknown) (no date) (unknown) (unknown) Intake performed by: Lakshmi Coleman (units unknown) (unknown) (unknown) (no date) (unknown) (unknown) Intake (units unknown) (unknown) (unknown) (no date) (unknown) (unknown) Intake- Clincial Staff (units unknown) (unknown) (unknown) (no date) (unknown) (unknown) Loc: [facility] (units unknown) (unknown) (unknown) (no date) (unknown) (unknown) Medical History (units unknown) (unknown) (unknown) (no date) (unknown) (unknown) Mother Hear t disease (units unknown) (unknown) (unknown) (no date) (unknown) (unknown) Other intervertebral disc displacement, lumbosacral region (units unknown) (unknown) (unknown) (no date) (unknown) (unknown) PFSH (units unknown) (unknown) (unknown) (no date) (unknown) (unknown) Patient: Fran Muhammad MR#: [id number] (units unknown) (unknown) (unknown) (no date) (unknown) (unknown) Reason For Visit (units unknown) (unknown) (unknown) (no date) (unknown) (unknown) Right shoulder injury (units unknown) (unknown) (unknown) (no date) (unknown) (unknown) Signed By: (units unknown) (unknown) (unknown) (no date) (unknown) (unknown) Smoking Status: Nilsa escalante smoker (units unknown) (unknown) (unknown) (no date) (unknown) (unknown) Social History (units unknown) (unknown) (unknown) (no date) (unknown) (unknown) This note may have been all or partially generated using voice recognition (units unknown) (unknown) (unknown) (no date) (unknown) (unknown) Tobacco + Substance Use (units unknown) (unknown) (unknown) (no date) (unknown) (unknown) Tobacco Status (units unknown) (unknown) (unknown) (no date) (unknown) (unknown) Visit Reasons: cough tired x1mo (units unknown) (unknown) (unknown) (no date) (unknown) (unknown) Walk In Clinic Visit (units unknown) (unknown) (unknown) (no date) (unknown) (unknown) alcohol intake: former (units unknown) (unknown) (unknown) (no date) (unknown) (unknown) have occurred. If there are any questions, please contact the Medical Records (units unknown) (unknown) (unknown) (no date) (unknown) (unknown) lisinopril Adverse Reaction (Intermediate, Verified 07/10/22 12:26) (units unknown) (unknown) (unknown) (no date) (unknown) (unknown) marital status: (units unknown) (unknown) (unknown) (no date) (unknown) (unknown) may occur. Occasiona l wrong-word or 'sound-alike' substitutions may have (units unknown) (unknown) (unknown) (no date) (unknown) (unknown) occurred due to the inherent limitations of voice recognition software. Please (units unknown) (unknown) (unknown) (no date) (unknown) (unknown) primidone Adverse Reaction (Intermediate, Verified 07/10/22 12:26) (units unknown) (unknown) (unknown) (no date) (unknown) (unknown) pt (units unknown) (unknown) (unknown) (no date) (unknown) (unknown) read the note carefully and recognize, using context, where these substitutions (units unknown) (unknown) (unknown) (no date) (unknown) (unknown) simvastatin Adverse Reaction (Intermediate, Verified 07/10/22 12:26) (units unknown) (unknown) (unknown) (no date) (unknown) (unknown) software. Although every effort is made to edit content, testing consultant errors (units unknown) (unknown) (unknown) (no date) (unknown) (unknown) tree pollen Allergy (Intermediate, Uncoded 07/10/22 12:26) (units unknown) (unknown) (unknown) (no date) (unknown) (unknown) zolpidem [From Ambien] Adverse Reaction (Intermediate, Verified 07/10/22 12:26) (units unknown) (unknown) Result panel 83 (unknown) (no date) (unknown) (unknown) (no value) (units unknown) (unknown) (unknown) (no date) (unknown) (unknown) 07/10/22 (units unknown) (unknown) (unknown) (no date) (unknown) (unknown) [id number] (units unknown) (unknown) (unknown) (no date) (unknown) (unknown) Acromioclavicular joint separation, type 1 (units unknown) (unknown) (unknown) (no date) (unknown) (unknown) Age/Sex: 81 / M Date of Service: (units unknown) (unknown) (unknown) (no date) (unknown) (unknown) Allergies (units unknown) (unknown) (unknown) (no date) (unknown) (unknown) [facility] (units unknown) (unknown) (unknown) (no date) (unknown) (unknown) [place] [address] (units unknown) (unknown) (unknown) (no date) (unknown) (unknown) Attending Dr: Tico FORBES (units unknown) (unknown) (unknown) (no date) (unknown) (unknown) : 1940 Acct:[id number] (units unknown) (unknown) (unknown) (no date) (unknown) (unknown) Dept at . (units unknown) (unknown) (unknown) (no date) (unknown) (unknown) Documented By: Wang Pennington 07/10/22 1223 (units unknown) (unknown) (unknown) (no date) (unknown) (unknown) Draft (units unknown) (unknown) (unknown) (no date) (unknown) (unknown) Facet arthropathy, lumbar (units unknown) (unknown) (unknown) (no date) (unknown) (unknown) Family History (units unknown) (unknown) (unknown) (no date) (unknown) (unknown) Father Stroke (units unknown) (unknown) (unknown) (no date) (unknown) (unknown) Intake Note: (units unknown) (unknown) (unknown) (no date) (unknown) (unknown) Intake performed by: Lakshmi Coleman (units unknown) (unknown) (unknown) (no date) (unknown) (unknown) Intake (units unknown) (unknown) (unknown) (no date) (unknown) (unknown) Intake- Clincial Staff (units unknown) (unknown) (unknown) (no date) (unknown) (unknown) Loc: [facility] (units unknown) (unknown) (unknown) (no date) (unknown) (unknown) Medical History (units unknown) (unknown) (unknown) (no date) (unknown) (unknown) Mother Hear t disease (units unknown) (unknown) (unknown) (no date) (unknown) (unknown) Other intervertebral disc displacement, lumbosacral region (units unknown) (unknown) (unknown) (no date) (unknown) (unknown) PFSH (units unknown) (unknown) (unknown) (no date) (unknown) (unknown) Patient: Fran Muhammad MR#: [id number] (units unknown) (unknown) (unknown) (no date) (unknown) (unknown) Reason For Visit (units unknown) (unknown) (unknown) (no date) (unknown) (unknown) Right shoulder injury (units unknown) (unknown) (unknown) (no date) (unknown) (unknown) Signed By: (units unknown) (unknown) (unknown) (no date) (unknown) (unknown) Smoking Status: Nilsa escalante smoker (units unknown) (unknown) (unknown) (no date) (unknown) (unknown) Social History (units unknown) (unknown) (unknown) (no date) (unknown) (unknown) This note may have been all or partially generated using voice recognition (units unknown) (unknown) (unknown) (no date) (unknown) (unknown) Tobacco + Substance Use (units unknown) (unknown) (unknown) (no date) (unknown) (unknown) Tobacco Status (units unknown) (unknown) (unknown) (no date) (unknown) (unknown) Visit Reasons: cough tired x1mo (units unknown) (unknown) (unknown) (no date) (unknown) (unknown) Walk In Clinic Visit (units unknown) (unknown) (unknown) (no date) (unknown) (unknown) alcohol intake: former (units unknown) (unknown) (unknown) (no date) (unknown) (unknown) have occurred. If there are any questions, please contact the Medical Records (units unknown) (unknown) (unknown) (no date) (unknown) (unknown) lisinopril Adverse Reaction (Intermediate, Verified 07/10/22 12:26) (units unknown) (unknown) (unknown) (no date) (unknown) (unknown) marital status: (units unknown) (unknown) (unknown) (no date) (unknown) (unknown) may occur. Occasiona l wrong-word or 'sound-alike' substitutions may have (units unknown) (unknown) (unknown) (no date) (unknown) (unknown) occurred due to the inherent limitations of voice recognition software. Please (units unknown) (unknown) (unknown) (no date) (unknown) (unknown) primidone Adverse Reaction (Intermediate, Verified 07/10/22 12:26) (units unknown) (unknown) (unknown) (no date) (unknown) (unknown) pt arrives to [facility] c/o (units unknown) (unknown) (unknown) (no date) (unknown) (unknown) read the note carefully and recognize, using context, where these substitutions (units unknown) (unknown) (unknown) (no date) (unknown) (unknown) simvastatin Adverse Reaction (Intermediate, Verified 07/10/22 12:26) (units unknown) (unknown) (unknown) (no date) (unknown) (unknown) software. Although every effort is made to edit content, testing consultant errors (units unknown) (unknown) (unknown) (no date) (unknown) (unknown) tree pollen Allergy (Intermediate, Uncoded 07/10/22 12:26) (units unknown) (unknown) (unknown) (no date) (unknown) (unknown) zolpidem [From Ambien] Adverse Reaction (Intermediate, Verified 07/10/22 12:26) (units unknown) (unknown) Result panel 84 (unknown) (no date) (unknown) (unknown) (no value) (units unknown) (unknown) (unknown) (no date) (unknown) (unknown) 07/10/22 (units unknown) (unknown) (unknown) (no date) (unknown) (unknown) 12:48 (units unknown) (unknown) (unknown) (no date) (unknown) (unknown) [id number] (units unknown) (unknown) (unknown) (no date) (unknown) (unknown) Acromioclavicular joint separation, type 1 (units unknown) (unknown) (unknown) (no date) (unknown) (unknown) Age/Sex: 81 / M Date of Service: (units unknown) (unknown) (unknown) (no date) (unknown) (unknown) Allergies (units unknown) (unknown) (unknown) (no date) (unknown) (unknown) [facility] (units unknown) (unknown) (unknown) (no date) (unknown) (unknown) [place] [address] (units unknown) (unknown) (unknown) (no date) (unknown) (unknown) Attending Dr: Tico FORBES (units unknown) (unknown) (unknown) (no date) (unknown) (unknown) BP 142/86 H (units unknown) (unknown) (unknown) (no date) (unknown) (unknown) Blood Pressure Location Rt brachial (units unknown) (unknown) (unknown) (no date) (unknown) (unknown) : 1940 Acct:[id number] (units unknown) (unknown) (unknown) (no date) (unknown) (unknown) Dept at . (units unknown) (unknown) (unknown) (no date) (unknown) (unknown) Documented By: Wang Pennington 07/10/22 1223 (units unknown) (unknown) (unknown) (no date) (unknown) (unknown) Draft (units unknown) (unknown) (unknown) (no date) (unknown) (unknown) Facet arthropathy, lumbar (units unknown) (unknown) (unknown) (no date) (unknown) (unknown) Family History (units unknown) (unknown) (unknown) (no date) (unknown) (unknown) Father Stroke (units unknown) (unknown) (unknown) (no date) (unknown) (unknown) Intake Note: (units unknown) (unknown) (unknown) (no date) (unknown) (unknown) Intake performed by: Lakshmi Coleman (units unknown) (unknown) (unknown) (no date) (unknown) (unknown) Intake (units unknown) (unknown) (unknown) (no date) (unknown) (unknown) Intake- Clincial Staff (units unknown) (unknown) (unknown) (no date) (unknown) (unknown) Loc: [facility] (units unknown) (unknown) (unknown) (no date) (unknown) (unknown) Medical History (units unknown) (unknown) (unknown) (no date) (unknown) (unknown) Mother Hear t disease (units unknown) (unknown) (unknown) (no date) (unknown) (unknown) Other intervertebral disc displacement, lumbosacral region (units unknown) (unknown) (unknown) (no date) (unknown) (unknown) Oxygen Delivery Method room air (units unknown) (unknown) (unknown) (no date) (unknown) (unknown) PFSH (units unknown) (unknown) (unknown) (no date) (unknown) (unknown) Patient: Fran Muhammad MR#: [id number] (units unknown) (unknown) (unknown) (no date) (unknown) (unknown) Position Sitting (units unknown) (unknown) (unknown) (no date) (unknown) (unknown) Pulse 60 (units unknown) (unknown) (unknown) (no date) (unknown) (unknown) Pulse Oximetry (%) 97 (units unknown) (unknown) (unknown) (no date) (unknown) (unknown) Pulse Source Monitor (units unknown) (unknown) (unknown) (no date) (unknown) (unknown) Reason For Visit (units unknown) (unknown) (unknown) (no date) (unknown) (unknown) Respiration 20 (units unknown) (unknown) (unknown) (no date) (unknown) (unknown) Right shoulder injury (units unknown) (unknown) (unknown) (no date) (unknown) (unknown) Signed By: (units unknown) (unknown) (unknown) (no date) (unknown) (unknown) Smoking Status: Nilsa escalante smoker (units unknown) (unknown) (unknown) (no date) (unknown) (unknown) Social History (units unknown) (unknown) (unknown) (no date) (unknown) (unknown) Temp 98.2 F (units unknown) (unknown) (unknown) (no date) (unknown) (unknown) Temp Source Temporal Artery Scan (units unknown) (unknown) (unknown) (no date) (unknown) (unknown) This note may have been all or partially generated using voice recognition (units unknown) (unknown) (unknown) (no date) (unknown) (unknown) Tobacco + Substance Use (units unknown) (unknown) (unknown) (no date) (unknown) (unknown) Tobacco Status (units unknown) (unknown) (unknown) (no date) (unknown) (unknown) Visit Reasons: cough tired x1mo (units unknown) (unknown) (unknown) (no date) (unknown) (unknown) Vitals (units unknown) (unknown) (unknown) (no date) (unknown) (unknown) Walk In Clinic Visit (units unknown) (unknown) (unknown) (no date) (unknown) (unknown) alcohol intake: former (units unknown) (unknown) (unknown) (no date) (unknown) (unknown) have occurred. If there are any questions, please contact the Medical Records (units unknown) (unknown) (unknown) (no date) (unknown) (unknown) lisinopril Adverse Reaction (Intermediate, Verified 07/10/22 12:48) (units unknown) (unknown) (unknown) (no date) (unknown) (unknown) marital status: (units unknown) (unknown) (unknown) (no date) (unknown) (unknown) may occur. Occasiona l wrong-word or 'sound-alike' substitutions may have (units unknown) (unknown) (unknown) (no date) (unknown) (unknown) occurred due to the inherent limitations of voice recognition software. Please (units unknown) (unknown) (unknown) (no date) (unknown) (unknown) primidone Adverse Reaction (Intermediate, Verified 07/10/22 12:48) (units unknown) (unknown) (unknown) (no date) (unknown) (unknown) pt arrives to [facility] c/ o fatigue and cough lasting approx one month (units unknown) (unknown) (unknown) (no date) (unknown) (unknown) read the note carefully and recognize, using context, where these substitutions (units unknown) (unknown) (unknown) (no date) (unknown) (unknown) simvastatin Adverse Reaction (Intermediate, Verified 07/10/22 12:48) (units unknown) (unknown) (unknown) (no date) (unknown) (unknown) software. Although every effort is made to edit content, testing consultant errors (units unknown) (unknown) (unknown) (no date) (unknown) (unknown) tree pollen Allergy (Intermediate, Uncoded 07/10/22 12:48) (units unknown) (unknown) (unknown) (no date) (unknown) (unknown) zolpidem [From Ambien] Adverse Reaction (Intermediate, Verified 07/10/22 12:48) (units unknown) (unknown) Result panel 85 (unknown) (no date) (unknown) (unknown) (no value) (units unknown) (unknown) (unknown) (no date) (unknown) (unknown) (1) Cough: (units unknown) (unknown) (unknown) (no date) (unknown) (unknown) 07/10/22 1311 (units unknown) (unknown) (unknown) (no date) (unknown) (unknown) 07/10/22 (units unknown) (unknown) (unknown) (no date) (unknown) (unknown) 12:48 (units unknown) (unknown) (unknown) (no date) (unknown) (unknown) [id number] (units unknown) (unknown) (unknown) (no date) (unknown) (unknown) 81-year-old male wit h cough and congestion x1 month. Assessment was encouraging (units unknown) (unknown) (unknown) (no date) (unknown) (unknown) 81-year-old male, with history of kidney transplant, presents to the walk-in (units unknown) (unknown) (unknown) (no date) (unknown) (unknown) Acromioclavicular joint separation, type 1 (units unknown) (unknown) (unknown) (no date) (unknown) (unknown) Age/Sex: 81 / M Date of Service: (units unknown) (unknown) (unknown) (no date) (unknown) (unknown) Allergies (units unknown) (unknown) (unknown) (no date) (unknown) (unknown) [facility] (units unknown) (unknown) (unknown) (no date) (unknown) (unknown) [place] [address] (units unknown) (unknown) (unknown) (no date) (unknown) (unknown) Assessment + Plan (units unknown) (unknown) (unknown) (no date) (unknown) (unknown) Attending Dr: Tico FORBES (units unknown) (unknown) (unknown) (no date) (unknown) (unknown) BP 142/86 H (units unknown) (unknown) (unknown) (no date) (unknown) (unknown) Blood Pressure Location Rt brachial (units unknown) (unknown) (unknown) (no date) (unknown) (unknown) CARDIOVASCULAR: Denies chest pain, palpitations, edema. (units unknown) (unknown) (unknown) (no date) (unknown) (unknown) CARDIOVASCULAR: Regular rate and rhythm without murmurs, peripheral pulses (units unknown) (unknown) (unknown) (no date) (unknown) (unknown) Chief Complaint (units unknown) (unknown) (unknown) (no date) (unknown) (unknown) Chief Complaint: Cough and congestion (units unknown) (unknown) (unknown) (no date) (unknown) (unknown) Cough type: unspecified Qualified Code(s): R05.9 - Cough, unspecified (units unknown) (unknown) (unknown) (no date) (unknown) (unknown) : 1940 Acct:[id number] (units unknown) (unknown) (unknown) (no date) (unknown) (unknown) Details: (units unknown) (unknown) (unknown) (no date) (unknown) (unknown) Documented By: Wang Pennington 07/10/22 1223 (units unknown) (unknown) (unknown) (no date) (unknown) (unknown) ENT: Nose without bleeding, purulent drainage. Throat without erythema, (units unknown) (unknown) (unknown) (no date) (unknown) (unknown) Exam Narrative (units unknown) (unknown) (unknown) (no date) (unknown) (unknown) Exam Narrative: (units unknown) (unknown) (unknown) (no date) (unknown) (unknown) Exam (units unknown) (unknown) (unknown) (no date) (unknown) (unknown) Facet arthropathy, lumbar (units unknown) (unknown) (unknown) (no date) (unknown) (unknown) Family History (units unknown) (unknown) (unknown) (no date) (unknown) (unknown) Father Stroke (units unknown) (unknown) (unknown) (no date) (unknown) (unknown) GASTROINTESTINAL: Denies nausea, vomiting, abdominal pain, diarrhea, (units unknown) (unknown) (unknown) (no date) (unknown) (unknown) GENERAL: Denies chills, fever, sweats. Endorses fatigue. (units unknown) (unknown) (unknown) (no date) (unknown) (unknown) GENERAL: This is a well-nourished, well-developed patient, in no acute distress. (units unknown) (unknown) (unknown) (no date) (unknown) (unknown) HEAD: Atraumatic. Normocephalic. (units unknown) (unknown) (unknown) (no date) (unknown) (unknown) HEENT: Denies sinus pain, ear pain, sore throat, difficulty swallowing, (units unknown) (unknown) (unknown) (no date) (unknown) (unknown) HPI (units unknown) (unknown) (unknown) (no date) (unknown) (unknown) Intake Note: (units unknown) (unknown) (unknown) (no date) (unknown) (unknown) Intake performed by: Lakshmi Coleman (units unknown) (unknown) (unknown) (no date) (unknown) (unknown) Intake (units unknown) (unknown) (unknown) (no date) (unknown) (unknown) Intake- Clincial Staff (units unknown) (unknown) (unknown) (no date) (unknown) (unknown) Loc: [facility] (units unknown) (unknown) (unknown) (no date) (unknown) (unknown) MSK: Denies weakness , joint pain, or bony pain. (units unknown) (unknown) (unknown) (no date) (unknown) (unknown) MSK: Moves all extremities. Normal range of motion, no clubbing or edema. (units unknown) (unknown) (unknown) (no date) (unknown) (unknown) Medical History (units unknown) (unknown) (unknown) (no date) (unknown) (unknown) Medications: (units unknown) (unknown) (unknown) (no date) (unknown) (unknown) Mother Hear t disease (units unknown) (unknown) (unknown) (no date) (unknown) (unknown) NEURO: A+O x 3. (units unknown) (unknown) (unknown) (no date) (unknown) (unknown) NEUROLOGIC: Denies weakness, dizziness, headache, numbness, confusion. (units unknown) (unknown) (unknown) (no date) (unknown) (unknown) Narrative: See HPI. (units unknown) (unknown) (unknown) (no date) (unknown) (unknown) Neurovascularly intact. (units unknown) (unknown) (unknown) (no date) (unknown) (unknown) New (units unknown) (unknown) (unknown) (no date) (unknown) (unknown) Other intervertebral disc displacement, lumbosacral region (units unknown) (unknown) (unknown) (no date) (unknown) (unknown) Oxygen Delivery Method room air (units unknown) (unknown) (unknown) (no date) (unknown) (unknown) PFSH (units unknown) (unknown) (unknown) (no date) (unknown) (unknown) Patient: Fran Muhammad MR#: [id number] (units unknown) (unknown) (unknown) (no date) (unknown) (unknown) Evelyn. 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 okay with (units unknown) (unknown) (unknown) (no date) (unknown) (unknown) Plan (units unknown) (unknown) (unknown) (no date) (unknown) (unknown) Position Sitting (units unknown) (unknown) (unknown) (no date) (unknown) (unknown) Pulse 60 (units unknown) (unknown) (unknown) (no date) (unknown) (unknown) Pulse Oximetry (%) 97 (units unknown) (unknown) (unknown) (no date) (unknown) (unknown) Pulse Source Monitor (units unknown) (unknown) (unknown) (no date) (unknown) (unknown) Qualifiers: (units unknown) (unknown) (unknown) (no date) (unknown) (unknown) RESPIRATORY: Breath sounds equal and clear bilaterally. No wheezes, rales, or (units unknown) (unknown) (unknown) (no date) (unknown) (unknown) RESPIRATORY: Denies dyspnea, wheezing, sputum. Endorses cough and congestion. (units unknown) (unknown) (unknown) (no date) (unknown) (unknown) ROS Narrative (units unknown) (unknown) (unknown) (no date) (unknown) (unknown) ROS Narrative: (units unknown) (unknown) (unknown) (no date) (unknown) (unknown) ROS (units unknown) (unknown) (unknown) (no date) (unknown) (unknown) Reason For Visit (units unknown) (unknown) (unknown) (no date) (unknown) (unknown) Respiration 20 (units unknown) (unknown) (unknown) (no date) (unknown) (unknown) Right shoulder injury (units unknown) (unknown) (unknown) (no date) (unknown) (unknown) SKIN: Denies rash, skin lesions, or pruritis. (units unknown) (unknown) (unknown) (no date) (unknown) (unknown) SKIN: Warm, dry, no rashes or lesions noted. (units unknown) (unknown) (unknown) (no date) (unknown) (unknown) Signed By: <Electronically signed by Wang Pennington> (units unknown) (unknown) (unknown) (no date) (unknown) (unknown) Signed (units unknown) (unknown) (unknown) (no date) (unknown) (unknown) Smoking Status: Nilsa escalante smoker (units unknown) (unknown) (unknown) (no date) (unknown) (unknown) Social History (units unknown) (unknown) (unknown) (no date) (unknown) (unknown) Temp 98.2 F (units unknown) (unknown) (unknown) (no date) (unknown) (unknown) Temp Source Temporal Artery Scan (units unknown) (unknown) (unknown) (no date) (unknown) (unknown) This note may have been all or partially generated using voice recognition (units unknown) (unknown) (unknown) (no date) (unknown) (unknown) Tobacco + Substance Use (units unknown) (unknown) (unknown) (no date) (unknown) (unknown) Tobacco Status (units unknown) (unknown) (unknown) (no date) (unknown) (unknown) Visit Reasons: cough tired x1mo (units unknown) (unknown) (unknown) (no date) (unknown) (unknown) Vitals (units unknown) (unknown) (unknown) (no date) (unknown) (unknown) Walk In Clinic Visit (units unknown) (unknown) (unknown) (no date) (unknown) (unknown) Zyrtec and Flonase nasal spray. For cough suppression, recommended (units unknown) (unknown) (unknown) (no date) (unknown) (unknown) alcohol intake: former (units unknown) (unknown) (unknown) (no date) (unknown) (unknown) and vital signs within normal limits. I suspect much of patient's symptoms are (units unknown) (unknown) (unknown) (no date) (unknown) (unknown) at . (units unknown) (unknown) (unknown) (no date) (unknown) (unknown) benzonatate 200 mg P O TID PRN 20 caps 0RF cough (units unknown) (unknown) (unknown) (no date) (unknown) (unknown) clinic with complaints of cough and congestion x1. Patient has been on multiple (units unknown) (unknown) (unknown) (no date) (unknown) (unknown) constipation. (units unknown) (unknown) (unknown) (no date) (unknown) (unknown) dizziness. (units unknown) (unknown) (unknown) (no date) (unknown) (unknown) due to the inherent limitations of voice recognition software. Please read the (units unknown) (unknown) (unknown) (no date) (unknown) (unknown) fits on a steady basis. Patient denies any shortness of breath but does become (units unknown) (unknown) (unknown) (no date) (unknown) (unknown) from sinus drainage. Recommended supportive care that included rest, increased (units unknown) (unknown) (unknown) (no date) (unknown) (unknown) him using these medications before taking anything. Discussed plan of care and (units unknown) (unknown) (unknown) (no date) (unknown) (unknown) intact, cap refill < 2 sec. (units unknown) (unknown) (unknown) (no date) (unknown) (unknown) lisinopril Adverse Reaction (Intermediate, Verified 07/10/22 12:48) (units unknown) (unknown) (unknown) (no date) (unknown) (unknown) marital status: (units unknown) (unknown) (unknown) (no date) (unknown) (unknown) more fatigued with manual labor. (units unknown) (unknown) (unknown) (no date) (unknown) (unknown) muscle use. (units unknown) (unknown) (unknown) (no date) (unknown) (unknown) note carefully and recognize, using context, where these substitutions have (units unknown) (unknown) (unknown) (no date) (unknown) (unknown) occurred. If there are any questions, please contact the Medical Records Dept (units unknown) (unknown) (unknown) (no date) (unknown) (unknown) oral hydration, gargling with warm salt water in the morning, daily Claritin or (units unknown) (unknown) (unknown) (no date) (unknown) (unknown) iocy-ioz-tbycrgs Delsym as well as a prescription for a trial of Tessalon (units unknown) (unknown) (unknown) (no date) (unknown) (unknown) [place] trips and seems to be dealing with congestion, fatigue and coughing (units unknown) (unknown) (unknown) (no date) (unknown) (unknown) patent. (units unknown) (unknown) (unknown) (no date) (unknown) (unknown) primidone Adverse Reaction (Intermediate, Verified 07/10/22 12:48) (units unknown) (unknown) (unknown) (no date) (unknown) (unknown) pt arrives to [facility] c/ o fatigue and cough lasting approx one month (units unknown) (unknown) (unknown) (no date) (unknown) (unknown) return precautions with patient and spouse, who verbalized understanding and (units unknown) (unknown) (unknown) (no date) (unknown) (unknown) rhonchi. No witnesse d cough. No increased respiratory effort. No accessory (units unknown) (unknown) (unknown) (no date) (unknown) (unknown) simvastatin Adverse Reaction (Intermediate, Verified 07/10/22 12:48) (units unknown) (unknown) (unknown) (no date) (unknown) (unknown) software. Although every effort is made to edit content, testing consultant errors ma (units unknown) (unknown) (unknown) (no date) (unknown) (unknown) tonsillar hypertrophy, positive postnasal exudate. [place] midline. Airway (units unknown) (unknown) (unknown) (no date) (unknown) (unknown) tree pollen Allergy (Intermediate, Uncoded 07/10/22 12:48) (units unknown) (unknown) (unknown) (no date) (unknown) (unknown) were agreeable with course of action. (units unknown) (unknown) (unknown) (no date) (unknown) (unknown) y occur. Occasional wrong-word or 'sound-alike' substitutions may have occurred (units unknown) (unknown) (unknown) (no date) (unknown) (unknown) zolpidem [From Ambien] Adverse Reaction (Intermediate, Verified 07/10/22 12:48) (units unknown) (unknown) Result panel 86 (unknown) (no date) (unknown) (unknown) (no value) (units unknown) (unknown) (unknown) (no date) (unknown) (unknown) [id number] (units unknown) (unknown) (unknown) (no date) (unknown) (unknown) 07/12/22 (units unknown) (unknown) (unknown) (no date) (unknown) (unknown) [address] [place] [address] (units unknown) (unknown) (unknown) (no date) (unknown) (unknown) 14:03. (units unknown) (unknown) (unknown) (no date) (unknown) (unknown) Accession Number: [id number] (units unknown) (unknown) (unknown) (no date) (unknown) (unknown) Accession Number: [id number] (units unknown) (unknown) (unknown) (no date) (unknown) (unknown) Accession Number: [id number] (units unknown) (unknown) (unknown) (no date) (unknown) (unknown) Accession Number: [id number] (units unknown) (unknown) (unknown) (no date) (unknown) (unknown) Age/Sex: 81 / M Date of Service: (units unknown) (unknown) (unknown) (no date) (unknown) (unknown) [place] [address] (units unknown) (unknown) (unknown) (no date) (unknown) (unknown) Approved by: Howard Yadav M.D. on 07/12/2022 at 12:40 (units unknown) (unknown) (unknown) (no date) (unknown) (unknown) Approved by: Chapin Harvey M.D. on 07/12/2022 at 13:01 (units unknown) (unknown) (unknown) (no date) (unknown) (unknown) Approved by: Chapin Harvey M.D. on 07/12/2022 at 13:10 (units unknown) (unknown) (unknown) (no date) (unknown) (unknown) Bones and chest wall : No suspicious bony lesions. Overlying soft tissues (units unknown) (unknown) (unknown) (no date) (unknown) (unknown) Bones: No fractures or dislocations. Mild to moderate degenerative change in (units unknown) (unknown) (unknown) (no date) (unknown) (unknown) Bones: No fractures or dislocations. No suspicious bony lesions. Visualized (units unknown) (unknown) (unknown) (no date) (unknown) (unknown) Brain: No midline shift. No intracranial masses or hemorrhage. No area of (units unknown) (unknown) (unknown) (no date) (unknown) (unknown) COMPARISON: [facility], CR, XR SHOULDER RT MIN 2V, 11/13/2019, 14:12. (units unknown) (unknown) (unknown) (no date) (unknown) (unknown) COMPARISON: None. (units unknown) (unknown) (unknown) (no date) (unknown) (unknown) COMPARISON: [facility], CT, CT HEAD WITHOUT CONTRAST, 04/26/2021, (units unknown) (unknown) (unknown) (no date) (unknown) (unknown) CSF spaces: Basal cisterns are patent. No extra-axial fluid collections. (units unknown) (unknown) (unknown) (no date) (unknown) (unknown) CT Scan Report (units unknown) (unknown) (unknown) (no date) (unknown) (unknown) : 1940 Acct:[id number] (units unknown) (unknown) (unknown) (no date) (unknown) (unknown) Dictated by: Howard Yadav M.D. on 07/12/2022 at 12:39 (units unknown) (unknown) (unknown) (no date) (unknown) (unknown) Dictated by: Howard Yadav M.D. on 07/12/2022 at 12:40 (units unknown) (unknown) (unknown) (no date) (unknown) (unknown) Dictated by: Chapin Harvey M.D. on 07/12/2022 at 12:59 (units unknown) (unknown) (unknown) (no date) (unknown) (unknown) Dictated by: Chapin Harvey M.D. on 07/12/2022 at 13:08 (units unknown) (unknown) (unknown) (no date) (unknown) (unknown) FINDINGS: (units unknown) (unknown) (unknown) (no date) (unknown) (unknown) IMPRESSION: No acute bony abnormality. (units unknown) (unknown) (unknown) (no date) (unknown) (unknown) IMPRESSION: No displaced fracture or pneumothorax. (units unknown) (unknown) (unknown) (no date) (unknown) (unknown) IMPRESSION: (units unknown) (unknown) (unknown) (no date) (unknown) (unknown) INDICATIONS: fall (units unknown) (unknown) (unknown) (no date) (unknown) (unknown) Image quality: Excellent. (units unknown) (unknown) (unknown) (no date) (unknown) (unknown) [facility] (units unknown) (unknown) (unknown) (no date) (unknown) (unknown) [facility], CT, CT HEAD/BRAIN WO CON, 04/23/2019, 11:10. (units unknown) (unknown) (unknown) (no date) (unknown) (unknown) Loc: ED (units unknown) (unknown) (unknown) (no date) (unknown) (unknown) Lungs and pleura: Lungs are clear. No pleural effusions or pneumothorax. (units unknown) (unknown) (unknown) (no date) (unknown) (unknown) Mediastinum: Mediastinal contours appear normal. Heart size is enlarged. (units unknown) (unknown) (unknown) (no date) (unknown) (unknown) No acute intracrania l abnormality. (units unknown) (unknown) (unknown) (no date) (unknown) (unknown) No acute osseous abnormality. (units unknown) (unknown) (unknown) (no date) (unknown) (unknown) Noncontrast 3 mm thick sections acquired from the skull base to the T4 level. (units unknown) (unknown) (unknown) (no date) (unknown) (unknown) Noncontrast 4.5 mm thick angled axial sections acquired from the foramen magnum (units unknown) (unknown) (unknown) (no date) (unknown) (unknown) Ordering Provider: Selina Flores D.O. (units unknown) (unknown) (unknown) (no date) (unknown) (unknown) PROCEDURE: CT CERVICAL SPINE WO CON (units unknown) (unknown) (unknown) (no date) (unknown) (unknown) PROCEDURE: CT HEAD/BRAIN WO CON (units unknown) (unknown) (unknown) (no date) (unknown) (unknown) PROCEDURE: XR CHEST 1V (units unknown) (unknown) (unknown) (no date) (unknown) (unknown) PROCEDURE: XR SHOULDER RT MIN 2V (units unknown) (unknown) (unknown) (no date) (unknown) (unknown) Patient: Fran Muhammad MR#: [id number] (units unknown) (unknown) (unknown) (no date) (unknown) (unknown) Procedure: CT cervical spine wo con (units unknown) (unknown) (unknown) (no date) (unknown) (unknown) Procedure: CT head/brain wo con (units unknown) (unknown) (unknown) (no date) (unknown) (unknown) Procedure: XR chest 1V (units unknown) (unknown) (unknown) (no date) (unknown) (unknown) Procedure: XR shoulder RT min 2V (units unknown) (unknown) (unknown) (no date) (unknown) (unknown) Sagittal (units unknown) (unknown) (unknown) (no date) (unknown) (unknown) Signed (units unknown) (unknown) (unknown) (no date) (unknown) (unknown) Sinuses: Visualized sinuses and mastoids are clear. (units unknown) (unknown) (unknown) (no date) (unknown) (unknown) Skull and face: Calvarium and visualized facial bones are intact, without (units unknown) (unknown) (unknown) (no date) (unknown) (unknown) Soft tissues: No suspicious soft tissue calcifications. (units unknown) (unknown) (unknown) (no date) (unknown) (unknown) Soft tissues: Prevertebral soft tissues are normal in thickness. No (units unknown) (unknown) (unknown) (no date) (unknown) (unknown) Surgical changes and devices: None. (units unknown) (unknown) (unknown) (no date) (unknown) (unknown) TECHNIQUE: 2 views o f the shoulder were acquired. (units unknown) (unknown) (unknown) (no date) (unknown) (unknown) TECHNIQUE: One view of the chest was acquired. (units unknown) (unknown) (unknown) (no date) (unknown) (unknown) TECHNIQUE: (units unknown) (unknown) (unknown) (no date) (unknown) (unknown) Ventricles (units unknown) (unknown) (unknown) (no date) (unknown) (unknown) XRay Report (units unknown) (unknown) (unknown) (no date) (unknown) (unknown) and coronal reformat s were then constructed. For radiation dose reduction, the (units unknown) (unknown) (unknown) (no date) (unknown) (unknown) appear intact. (units unknown) (unknown) (unknown) (no date) (unknown) (unknown) appear (units unknown) (unknown) (unknown) (no date) (unknown) (unknown) are normal in size and shape. (units unknown) (unknown) (unknown) (no date) (unknown) (unknown) cervical spine. Visualized superior ribs are intact. (units unknown) (unknown) (unknown) (no date) (unknown) (unknown) consistent with chronic microvascular ischemic change. Age-related parenchymal (units unknown) (unknown) (unknown) (no date) (unknown) (unknown) following (units unknown) (unknown) (unknown) (no date) (unknown) (unknown) hematomas. No apical pneumothoraces. (units unknown) (unknown) (unknown) (no date) (unknown) (unknown) hypodensity (units unknown) (unknown) (unknown) (no date) (unknown) (unknown) in a large vascular distribution to suggest acute infarction. Periventricular (units unknown) (unknown) (unknown) (no date) (unknown) (unknown) lesions. (units unknown) (unknown) (unknown) (no date) (unknown) (unknown) loss. (units unknown) (unknown) (unknown) (no date) (unknown) (unknown) paravertebral (units unknown) (unknown) (unknown) (no date) (unknown) (unknown) patient (units unknown) (unknown) (unknown) (no date) (unknown) (unknown) ribs (units unknown) (unknown) (unknown) (no date) (unknown) (unknown) size. (units unknown) (unknown) (unknown) (no date) (unknown) (unknown) suspicious (units unknown) (unknown) (unknown) (no date) (unknown) (unknown) the (units unknown) (unknown) (unknown) (no date) (unknown) (unknown) to the (units unknown) (unknown) (unknown) (no date) (unknown) (unknown) unremarkable. (units unknown) (unknown) (unknown) (no date) (unknown) (unknown) vertex, with coronal and sagittal reformats. For radiation dose reduction, the (units unknown) (unknown) (unknown) (no date) (unknown) (unknown) was used: automated exposure control, adjustment of mA and/or kV according to (units unknown) (unknown) Result panel 87 (unknown) (no date) (unknown) (unknown) (no value) (units unknown) (unknown) (unknown) (no date) (unknown) (unknown) 0.8 mg PO DAILY (units unknown) (unknown) (unknown) (no date) (unknown) (unknown) 07/12/22 11:56 (units unknown) (unknown) (unknown) (no date) (unknown) (unknown) 07/12/22 11:58 (units unknown) (unknown) (unknown) (no date) (unknown) (unknown) 07/12/22 (units unknown) (unknown) (unknown) (no date) (unknown) (unknown) 1 tab PO DAILY (units unknown) (unknown) (unknown) (no date) (unknown) (unknown) 1 tbsp PO .qday (units unknown) (unknown) (unknown) (no date) (unknown) (unknown) 11:44 (units unknown) (unknown) (unknown) (no date) (unknown) (unknown) 12.5 mg PO DAILY (units unknown) (unknown) (unknown) (no date) (unknown) (unknown) 2 mg PO Q12H (units unknown) (unknown) (unknown) (no date) (unknown) (unknown) 200 mg PO TID PRN (Reason: cough) Qty: 20 0RF (units unknown) (unknown) (unknown) (no date) (unknown) (unknown) [id number] (units unknown) (unknown) (unknown) (no date) (unknown) (unknown) 5 mg PO BID (units unknown) (unknown) (unknown) (no date) (unknown) (unknown) 5 mg PO DAILY (units unknown) (unknown) (unknown) (no date) (unknown) (unknown) 50 mg PO DAILY (units unknown) (unknown) (unknown) (no date) (unknown) (unknown) 81 mg PO DAILY (units unknown) (unknown) (unknown) (no date) (unknown) (unknown) ABDOMEN: Soft, nontender. Normoactive bowel sounds all 4 quadrants. No (units unknown) (unknown) (unknown) (no date) (unknown) (unknown) Acromioclavicular joint separation, type 1 (units unknown) (unknown) (unknown) (no date) (unknown) (unknown) Age/Sex: 81 / M (units unknown) (unknown) (unknown) (no date) (unknown) (unknown) Allergies (units unknown) (unknown) (unknown) (no date) (unknown) (unknown) Allergy/AdvReac Type Severity Reaction Status Date / Time (units unknown) (unknown) (unknown) (no date) (unknown) (unknown) Jenni Stoll, STRUCTURAL MANAGER [Primary Care Provider] (units unknown) (unknown) (unknown) (no date) (unknown) (unknown) Blood Pressure 178/8 3 H 07/12/22 11:44 (units unknown) (unknown) (unknown) (no date) (unknown) (unknown) Blood Pressure 178/8 3 H (units unknown) (unknown) (unknown) (no date) (unknown) (unknown) CARDIOVASCULAR: Regular rate and rhythm without murmurs, rubs or gallops. (units unknown) (unknown) (unknown) (no date) (unknown) (unknown) CT cervical spine wo con Stat (units unknown) (unknown) (unknown) (no date) (unknown) (unknown) CT head/brain wo con Stat (units unknown) (unknown) (unknown) (no date) (unknown) (unknown) Chest [XR chest 1V] Stat (units unknown) (unknown) (unknown) (no date) (unknown) (unknown) Chief Complaint: Trauma (units unknown) (unknown) (unknown) (no date) (unknown) (unknown) Complete Blood Count AUTO DIFF Stat (units unknown) (unknown) (unknown) (no date) (unknown) (unknown) Comprehensive Metabolic Panel Stat (units unknown) (unknown) (unknown) (no date) (unknown) (unknown) Course (units unknown) (unknown) (unknown) (no date) (unknown) (unknown) : 1940 Acct:[id number] (units unknown) (unknown) (unknown) (no date) (unknown) (unknown) Date of Service: 07/12/22 (units unknown) (unknown) (unknown) (no date) (unknown) (unknown) Departure (units unknown) (unknown) (unknown) (no date) (unknown) (unknown) Discharge Plan (units unknown) (unknown) (unknown) (no date) (unknown) (unknown) ED Orders (units unknown) (unknown) (unknown) (no date) (unknown) (unknown) EKG-12 Lead Stat (units unknown) (unknown) (unknown) (no date) (unknown) (unknown) ER Physician: Selina Flores D.O. (units unknown) (unknown) (unknown) (no date) (unknown) (unknown) EXTREMITIES: Normal range of motion, no clubbing or edema. Neurovascularly (units unknown) (unknown) (unknown) (no date) (unknown) (unknown) Emergency Report (units unknown) (unknown) (unknown) (no date) (unknown) (unknown) Exam (units unknown) (unknown) (unknown) (no date) (unknown) (unknown) Facet arthropathy, lumbar (units unknown) (unknown) (unknown) (no date) (unknown) (unknown) Family History (units unknown) (unknown) (unknown) (no date) (unknown) (unknown) Father Stroke (units unknown) (unknown) (unknown) (no date) (unknown) (unknown) Fresh garlic 1 tbsp PO .qday 06/18/18 11/13/19 (units unknown) (unknown) (unknown) (no date) (unknown) (unknown) Fresh garlic (units unknown) (unknown) (unknown) (no date) (unknown) (unknown) GENERAL: Alert pleasant well-appearing 81-year-old male (units unknown) (unknown) (unknown) (no date) (unknown) (unknown) General (units unknown) (unknown) (unknown) (no date) (unknown) (unknown) HEENT: Head atraumatic,EOMI, pupils reactive, face symmetric, moist mucous (units unknown) (unknown) (unknown) (no date) (unknown) (unknown) HPI - Fall (units unknown) (unknown) (unknown) (no date) (unknown) (unknown) HPI Narrative: (units unknown) (unknown) (unknown) (no date) (unknown) (unknown) History of Present Illness (units unknown) (unknown) (unknown) (no date) (unknown) (unknown) Home Medications (units unknown) (unknown) (unknown) (no date) (unknown) (unknown) Initial Vital Signs (units unknown) (unknown) (unknown) (no date) (unknown) (unknown) Initial Vital Signs: (units unknown) (unknown) (unknown) (no date) (unknown) (unknown) [address] [address] (units unknown) (unknown) (unknown) (no date) (unknown) (unknown) Lipase Stat (units unknown) (unknown) (unknown) (no date) (unknown) (unknown) Medical History (units unknown) (unknown) (unknown) (no date) (unknown) (unknown) Medication Instructions Recorded Confirmed (units unknown) (unknown) (unknown) (no date) (unknown) (unknown) Medication Instructions Recorded (units unknown) (unknown) (unknown) (no date) (unknown) (unknown) Mode of arrival: Ambulatory (units unknown) (unknown) (unknown) (no date) (unknown) (unknown) Mother Hear t disease (units unknown) (unknown) (unknown) (no date) (unknown) (unknown) NECK: Cervical colla r in voice mild vertebral tenderness (units unknown) (unknown) (unknown) (no date) (unknown) (unknown) NEUROLOGICAL: Alert and oriented x4 coremaker floor strength equal bilaterally (units unknown) (unknown) (unknown) (no date) (unknown) (unknown) No Action (units unknown) (unknown) (unknown) (no date) (unknown) (unknown) Ordered: (units unknown) (unknown) (unknown) (no date) (unknown) (unknown) Orders (units unknown) (unknown) (unknown) (no date) (unknown) (unknown) Other intervertebral disc displacement, lumbosacral region (units unknown) (unknown) (unknown) (no date) (unknown) (unknown) Oxygen Delivery Method Room Air 07/12/22 11:44 (units unknown) (unknown) (unknown) (no date) (unknown) (unknown) Oxygen Delivery Method Room Air (units unknown) (unknown) (unknown) (no date) (unknown) (unknown) Patient History (units unknown) (unknown) (unknown) (no date) (unknown) (unknown) Patient is a 81-year-old male history of hypertension, renal transplant (units unknown) (unknown) (unknown) (no date) (unknown) (unknown) Patient: Fran Muhammad MR#: [id number] (units unknown) (unknown) (unknown) (no date) (unknown) (unknown) Prescriptions: (units unknown) (unknown) (unknown) (no date) (unknown) (unknown) Previous Rx's (units unknown) (unknown) (unknown) (no date) (unknown) (unknown) Pulse Oximetry 94 07/12/22 11:44 (units unknown) (unknown) (unknown) (no date) (unknown) (unknown) Pulse Oximetry 94 (units unknown) (unknown) (unknown) (no date) (unknown) (unknown) Pulse Rate 70 07/12/22 11:44 (units unknown) (unknown) (unknown) (no date) (unknown) (unknown) Pulse Rate 70 (units unknown) (unknown) (unknown) (no date) (unknown) (unknown) RESPIRATORY: Breath sounds equal bilaterally, no wheezes rales or rhonchi. (units unknown) (unknown) (unknown) (no date) (unknown) (unknown) ROS Unobtainable: Al l systems reviewed + are unremarkable except as noted in HPI (units unknown) (unknown) (unknown) (no date) (unknown) (unknown) Really complaining o f some right shoulder pain. Now he feels dizzy and (units unknown) (unknown) (unknown) (no date) (unknown) (unknown) Referrals: (units unknown) (unknown) (unknown) (no date) (unknown) (unknown) Related Data (units unknown) (unknown) (unknown) (no date) (unknown) (unknown) Respiratory Rate 14 07/12/22 11:44 (units unknown) (unknown) (unknown) (no date) (unknown) (unknown) Respiratory Rate 14 (units unknown) (unknown) (unknown) (no date) (unknown) (unknown) Review of Systems (units unknown) (unknown) (unknown) (no date) (unknown) (unknown) Right shoulder decreased abduction no clavicle step-off no gross shoulder (units unknown) (unknown) (unknown) (no date) (unknown) (unknown) Right shoulder injury (units unknown) (unknown) (unknown) (no date) (unknown) (unknown) SKIN: Warm, dry, no laceration, no petechiae, no rashes or lesions. (units unknown) (unknown) (unknown) (no date) (unknown) (unknown) Signed By: (units unknown) (unknown) (unknown) (no date) (unknown) (unknown) Smoking Status: Nilsa escalante smoker (units unknown) (unknown) (unknown) (no date) (unknown) (unknown) Social History (units unknown) (unknown) (unknown) (no date) (unknown) (unknown) Source: patient (units unknown) (unknown) (unknown) (no date) (unknown) (unknown) Stated Complaint: Fall, Dizzy, cant turn head, R shoulder/abd (units unknown) (unknown) (unknown) (no date) (unknown) (unknown) Substance Use Type: does not use (units unknown) (unknown) (unknown) (no date) (unknown) (unknown) Temperature 98.1 F 07/12/22 11:44 (units unknown) (unknown) (unknown) (no date) (unknown) (unknown) Temperature 98.1 F (units unknown) (unknown) (unknown) (no date) (unknown) (unknown) Time Seen by Provider: 07/12/22 11:55 (units unknown) (unknown) (unknown) (no date) (unknown) (unknown) Troponin + CK Cardia c Panel Stat (units unknown) (unknown) (unknown) (no date) (unknown) (unknown) Vital Signs - 8 hr (units unknown) (unknown) (unknown) (no date) (unknown) (unknown) Vital Signs (units unknown) (unknown) (unknown) (no date) (unknown) (unknown) Vital signs: (units unknown) (unknown) (unknown) (no date) (unknown) (unknown) XR shoulder RT min 2 V Stat (units unknown) (unknown) (unknown) (no date) (unknown) (unknown) abnormality distal radial pulse intact (units unknown) (unknown) (unknown) (no date) (unknown) (unknown) about 5 stairs to th e bottom of the staircase. tried to help get him up he (units unknown) (unknown) (unknown) (no date) (unknown) (unknown) alcohol intake frequency: 0-2 drinks per day (units unknown) (unknown) (unknown) (no date) (unknown) (unknown) alcohol intake: former (units unknown) (unknown) (unknown) (no date) (unknown) (unknown) amlodipine 5 mg tablet 5 mg PO BID 01/16/19 11/13/19 (units unknown) (unknown) (unknown) (no date) (unknown) (unknown) amlodipine 5 mg tablet (units unknown) (unknown) (unknown) (no date) (unknown) (unknown) and below (units unknown) (unknown) (unknown) (no date) (unknown) (unknown) aspirin 81 mg chewable tablet 81 mg PO DAILY 01/16/19 11/13/19 (units unknown) (unknown) (unknown) (no date) (unknown) (unknown) aspirin 81 mg tablet,chewable (units unknown) (unknown) (unknown) (no date) (unknown) (unknown) benzonatate 200 mg capsule 200 mg PO TID PRN cough #20 caps 07/10/22 (units unknown) (unknown) (unknown) (no date) (unknown) (unknown) benzonatate 200 mg capsule (units unknown) (unknown) (unknown) (no date) (unknown) (unknown) chlorthalidone 25 mg tablet 12.5 mg PO DAILY 01/16/19 11/13/19 (units unknown) (unknown) (unknown) (no date) (unknown) (unknown) chlorthalidone 25 mg tablet (units unknown) (unknown) (unknown) (no date) (unknown) (unknown) eventually made it up. However he was in severe pain throughout the night. (units unknown) (unknown) (unknown) (no date) (unknown) (unknown) guarding or rebound. (units unknown) (unknown) (unknown) (no date) (unknown) (unknown) he had his hand on the railing when the next thing he knew he would fallen down (units unknown) (unknown) (unknown) (no date) (unknown) (unknown) immediate-release (units unknown) (unknown) (unknown) (no date) (unknown) (unknown) intact (units unknown) (unknown) (unknown) (no date) (unknown) (unknown) lightheaded. He is having some cervical pain. No nausea vomiting numbness (units unknown) (unknown) (unknown) (no date) (unknown) (unknown) lisinopril AdvReac Intermediate Verified 07/12/22 11:49 (units unknown) (unknown) (unknown) (no date) (unknown) (unknown) losartan 25 mg table t 50 mg PO DAILY 07/05/20 07/05/20 (units unknown) (unknown) (unknown) (no date) (unknown) (unknown) losartan 25 mg tablet (units unknown) (unknown) (unknown) (no date) (unknown) (unknown) marital status: (units unknown) (unknown) (unknown) (no date) (unknown) (unknown) membranes (units unknown) (unknown) (unknown) (no date) (unknown) (unknown) multivitamin 1 tab P O DAILY 01/16/19 11/13/19 (units unknown) (unknown) (unknown) (no date) (unknown) (unknown) multivitamin Tablet (units unknown) (unknown) (unknown) (no date) (unknown) (unknown) prednisone 5 mg tablet 5 mg PO DAILY 01/16/19 11/13/19 (units unknown) (unknown) (unknown) (no date) (unknown) (unknown) prednisone 5 mg tablet (units unknown) (unknown) (unknown) (no date) (unknown) (unknown) primidone AdvReac Intermediate Verified 07/12/22 11:49 (units unknown) (unknown) (unknown) (no date) (unknown) (unknown) secondary to nephrosclerosis, chronic back pain presents today after a fall (units unknown) (unknown) (unknown) (no date) (unknown) (unknown) simvastatin AdvReac Intermediate Verified 07/12/22 11:49 (units unknown) (unknown) (unknown) (no date) (unknown) (unknown) tacrolimus 1 mg capsule (units unknown) (unknown) (unknown) (no date) (unknown) (unknown) tacrolimus 1 mg capsule, 2 mg PO Q12H 01/16/19 11/13/19 (units unknown) (unknown) (unknown) (no date) (unknown) (unknown) tamsulosin 0.4 mg capsule (Flomax) 0.8 mg PO DAILY 02/26/19 11/13/19 (units unknown) (unknown) (unknown) (no date) (unknown) (unknown) tamsulosin [Flomax] 0.4 mg capsule (units unknown) (unknown) (unknown) (no date) (unknown) (unknown) tingling or weakness . He does take aspirin daily no fever or chills. (units unknown) (unknown) (unknown) (no date) (unknown) (unknown) tree pollen Allergy Intermediate Uncoded 07/10/22 12:48 (units unknown) (unknown) (unknown) (no date) (unknown) (unknown) yesterday. He report s that he was going down the stairs he was carrying his dog (units unknown) (unknown) (unknown) (no date) (unknown) (unknown) zolpidem [From Ambien] AdvReac Intermediate Verified 07/12/22 11:49 (units unknown) (unknown) Result panel 88 (unknown) (no date) (unknown) (unknown) 1.0 % (unknown) (unknown) (no date) (unknown) (unknown) 100 /ul (unknown) (unknown) (no date) (unknown) (unknown) 13.7 % (unknown) (unknown) (no date) (unknown) (unknown) 15.5 g/dl (unknown) (unknown) (no date) (unknown) (unknown) 2.1 % (unknown) (unknown) (no date) (unknown) (unknown) 200 /ul (unknown) (unknown) (no date) (unknown) (unknown) 21.3 % (unknown) (unknown) (no date) (unknown) (unknown) 2100 /ul (unknown) (unknown) (no date) (unknown) (unknown) 213 x10 3/ul (unknown) (unknown) (no date) (unknown) (unknown) 29.2 pg (unknown) (unknown) (no date) (unknown) (unknown) 33.3 % (unknown) (unknown) (no date) (unknown) (unknown) 46.5 % (unknown) (unknown) (no date) (unknown) (unknown) 5.30 x10 6/ul (unknown) (unknown) (no date) (unknown) (unknown) 6.9 % (unknown) (unknown) (no date) (unknown) (unknown) 6700 /ul (unknown) (unknown) (no date) (unknown) (unknown) 68.7 % (unknown) (unknown) (no date) (unknown) (unknown) 700 /ul (unknown) (unknown) (no date) (unknown) (unknown) 87.7 fl (unknown) (unknown) (no date) (unknown) (unknown) 9.7 x10 3/ul (unknown) Result panel 89 (unknown) (no date) (unknown) (unknown) 0.8 mg/dl (unknown) (unknown) (no date) (unknown) (unknown) 1.4 (units unknown) (unknown) (unknown) (no date) (unknown) (unknown) 1.61 mg/dl (unknown) (unknown) (no date) (unknown) (unknown) 102 u/l (unknown) (unknown) (no date) (unknown) (unknown) 107 mmol/l (unknown) (unknown) (no date) (unknown) (unknown) 126 mg/dl (unknown) (unknown) (no date) (unknown) (unknown) 126 mg/dl (unknown) (unknown) (no date) (unknown) (unknown) 136 mmol/l (unknown) (unknown) (no date) (unknown) (unknown) 20 iu/l (unknown) (unknown) (no date) (unknown) (unknown) 20 mmol/l (unknown) (unknown) (no date) (unknown) (unknown) 25.5 (units unknown) (unknown) (unknown) (no date) (unknown) (unknown) 28 iu/l (unknown) (unknown) (no date) (unknown) (unknown) 3.1 g/dl (unknown) (unknown) (no date) (unknown) (unknown) 37 u/l (unknown) (unknown) (no date) (unknown) (unknown) 4.0 mmol/l (unknown) (unknown) (no date) (unknown) (unknown) 4.2 g/dl (unknown) (unknown) (no date) (unknown) (unknown) 41 mg/dl (unknown) (unknown) (no date) (unknown) (unknown) 43 ml/min (unknown) (unknown) (no date) (unknown) (unknown) 43 ml/min (unknown) (unknown) (no date) (unknown) (unknown) 67 u/l (unknown) (unknown) (no date) (unknown) (unknown) 7.3 g/dl (unknown) (unknown) (no date) (unknown) (unknown) 9.0 mg/dl (unknown) (unknown) (no date) (unknown) (unknown) Test not performed % (unknown) (unknown) (no date) (unknown) (unknown) Test not performed % (unknown) (unknown) (no date) (unknown) (unknown) Test not performed ng/ml (unknown) (unknown) (no date) (unknown) (unknown) Test not performed ng/ml (unknown) Result panel 90 (unknown) (no date) (unknown) (unknown) < 0.012 ng/ml (unknown) (unknown) (no date) (unknown) (unknown) < 0.012 ng/ml (unknown) (unknown) (no date) (unknown) (unknown) 0.8 mg/dl (unknown) (unknown) (no date) (unknown) (unknown) 1.4 (units unknown) (unknown) (unknown) (no date) (unknown) (unknown) 1.61 mg/dl (unknown) (unknown) (no date) (unknown) (unknown) 102 u/l (unknown) (unknown) (no date) (unknown) (unknown) 107 mmol/l (unknown) (unknown) (no date) (unknown) (unknown) 126 mg/dl (unknown) (unknown) (no date) (unknown) (unknown) 126 mg/dl (unknown) (unknown) (no date) (unknown) (unknown) 136 mmol/l (unknown) (unknown) (no date) (unknown) (unknown) 20 iu/l (unknown) (unknown) (no date) (unknown) (unknown) 20 mmol/l (unknown) (unknown) (no date) (unknown) (unknown) 25.5 (units unknown) (unknown) (unknown) (no date) (unknown) (unknown) 28 iu/l (unknown) (unknown) (no date) (unknown) (unknown) 3.1 g/dl (unknown) (unknown) (no date) (unknown) (unknown) 37 u/l (unknown) (unknown) (no date) (unknown) (unknown) 4.0 mmol/l (unknown) (unknown) (no date) (unknown) (unknown) 4.2 g/dl (unknown) (unknown) (no date) (unknown) (unknown) 41 mg/dl (unknown) (unknown) (no date) (unknown) (unknown) 43 ml/min (unknown) (unknown) (no date) (unknown) (unknown) 43 ml/min (unknown) (unknown) (no date) (unknown) (unknown) 67 u/l (unknown) (unknown) (no date) (unknown) (unknown) 7.3 g/dl (unknown) (unknown) (no date) (unknown) (unknown) 9.0 mg/dl (unknown) (unknown) (no date) (unknown) (unknown) Test not performed % (unknown) (unknown) (no date) (unknown) (unknown) Test not performed % (unknown) (unknown) (no date) (unknown) (unknown) Test not performed ng/ml (unknown) (unknown) (no date) (unknown) (unknown) Test not performed ng/ml (unknown) Result panel 91 (unknown) (no date) (unknown) (unknown) (no value) (units unknown) (unknown) (unknown) (no date) (unknown) (unknown) 0.8 mg PO DAILY (units unknown) (unknown) (unknown) (no date) (unknown) (unknown) 07/12/22 07/12/22 Range/Units (units unknown) (unknown) (unknown) (no date) (unknown) (unknown) 07/12/22 11:55 (units unknown) (unknown) (unknown) (no date) (unknown) (unknown) 07/12/22 11:56 (units unknown) (unknown) (unknown) (no date) (unknown) (unknown) 07/12/22 11:58 (units unknown) (unknown) (unknown) (no date) (unknown) (unknown) 07/12/22 12:31 (units unknown) (unknown) (unknown) (no date) (unknown) (unknown) 07/12/22 (units unknown) (unknown) (unknown) (no date) (unknown) (unknown) 1 tab PO DAILY (units unknown) (unknown) (unknown) (no date) (unknown) (unknown) 1 tbsp PO .qday (units unknown) (unknown) (unknown) (no date) (unknown) (unknown) 11:44 (units unknown) (unknown) (unknown) (no date) (unknown) (unknown) 11:55 11:55 (units unknown) (unknown) (unknown) (no date) (unknown) (unknown) 12.5 mg PO DAILY (units unknown) (unknown) (unknown) (no date) (unknown) (unknown) 14:03.? (units unknown) (unknown) (unknown) (no date) (unknown) (unknown) 2 mg PO Q12H (units unknown) (unknown) (unknown) (no date) (unknown) (unknown) 200 mg PO TID PRN (Reason: cough) Qty: 20 0RF (units unknown) (unknown) (unknown) (no date) (unknown) (unknown) [id number] (units unknown) (unknown) (unknown) (no date) (unknown) (unknown) 5 mg PO BID (units unknown) (unknown) (unknown) (no date) (unknown) (unknown) 5 mg PO DAILY (units unknown) (unknown) (unknown) (no date) (unknown) (unknown) 50 mg PO DAILY (units unknown) (unknown) (unknown) (no date) (unknown) (unknown) 81 mg PO DAILY (units unknown) (unknown) (unknown) (no date) (unknown) (unknown) ? (units unknown) (unknown) (unknown) (no date) (unknown) (unknown) ABDOMEN: Soft, nontender. Normoactive bowel sounds all 4 quadrants. No (units unknown) (unknown) (unknown) (no date) (unknown) (unknown) ALT 28 (<50) IU/L (units unknown) (unknown) (unknown) (no date) (unknown) (unknown) AST 20 (17-59) IU/L (units unknown) (unknown) (unknown) (no date) (unknown) (unknown) Acromioclavicular joint separation, type 1 (units unknown) (unknown) (unknown) (no date) (unknown) (unknown) Age/Sex: 81 / M (units unknown) (unknown) (unknown) (no date) (unknown) (unknown) Albumin 4.2 (3.5-5.0 ) g/dL (units unknown) (unknown) (unknown) (no date) (unknown) (unknown) Albumin/Globulin Ratio 1.4 (1.0-2.8) (units unknown) (unknown) (unknown) (no date) (unknown) (unknown) Alkaline Phosphatase 67 (38-126) U/L (units unknown) (unknown) (unknown) (no date) (unknown) (unknown) Allergies (units unknown) (unknown) (unknown) (no date) (unknown) (unknown) Allergy/AdvReac Type Severity Reaction Status Date / Time (units unknown) (unknown) (unknown) (no date) (unknown) (unknown) Approved by: Chapin Harvey M.D. on 07/12/2022 at 13:10 ? (units unknown) (unknown) (unknown) (no date) (unknown) (unknown) BUN 41 H (9-20) mg/dL (units unknown) (unknown) (unknown) (no date) (unknown) (unknown) BUN/Creatinine Ratio 25.5 H (6-22) (units unknown) (unknown) (unknown) (no date) (unknown) (unknown) Baso # (Auto) 100 (0-100) /uL (units unknown) (unknown) (unknown) (no date) (unknown) (unknown) Baso % (Auto) 1.0 (0-2) % (units unknown) (unknown) (unknown) (no date) (unknown) (unknown) Bettes,Jenni, STRUCTURAL MANAGER [Primary Care Provider] (units unknown) (unknown) (unknown) (no date) (unknown) (unknown) Blood Pressure 178/8 3 H 07/12/22 11:44 (units unknown) (unknown) (unknown) (no date) (unknown) (unknown) Blood Pressure 178/8 3 H (units unknown) (unknown) (unknown) (no date) (unknown) (unknown) Bones and chest wall:? No suspicious bony lesions.? Overlying soft tissues (units unknown) (unknown) (unknown) (no date) (unknown) (unknown) Bones:? No fractures or dislocations.? Mild to moderate degenerative change in (units unknown) (unknown) (unknown) (no date) (unknown) (unknown) Bones:? No fractures or dislocations.? No suspicious bony lesions.? Visualized (units unknown) (unknown) (unknown) (no date) (unknown) (unknown) Brain:? No midline shift.? No intracranial masses or hemorrhage.? No area of (units unknown) (unknown) (unknown) (no date) (unknown) (unknown) CARDIOVASCULAR: Regular rate and rhythm without murmurs, rubs or gallops. (units unknown) (unknown) (unknown) (no date) (unknown) (unknown) CK-MB (CK-2) Rel Index TNP (units unknown) (unknown) (unknown) (no date) (unknown) (unknown) CK-MB (CK-2) TNP (units unknown) (unknown) (unknown) (no date) (unknown) (unknown) COMPARISON:? [facility], CR, XR SHOULDER RT MIN 2V, 11/13/2019, 14:12. (units unknown) (unknown) (unknown) (no date) (unknown) (unknown) COMPARISON:? None. (units unknown) (unknown) (unknown) (no date) (unknown) (unknown) COMPARISON:? [facility], CT, CT HEAD WITHOUT CONTRAST, 04/26/2021, (units unknown) (unknown) (unknown) (no date) (unknown) (unknown) CSF spaces:? Basal cisterns are patent.? No extra-axial fluid collections.? (units unknown) (unknown) (unknown) (no date) (unknown) (unknown) CT - cervical spine: (units unknown) (unknown) (unknown) (no date) (unknown) (unknown) CT cervical spine wo con Stat (units unknown) (unknown) (unknown) (no date) (unknown) (unknown) CT head/brain wo con Stat (units unknown) (unknown) (unknown) (no date) (unknown) (unknown) CT scan - head: (units unknown) (unknown) (unknown) (no date) (unknown) (unknown) Calcium 9.0 (8.4-10.2) mg/dL (units unknown) (unknown) (unknown) (no date) (unknown) (unknown) Carbon Dioxide 20 L (22-32) mmol/L (units unknown) (unknown) (unknown) (no date) (unknown) (unknown) Chest [XR chest 1V] Stat (units unknown) (unknown) (unknown) (no date) (unknown) (unknown) Chest x-ray: (units unknown) (unknown) (unknown) (no date) (unknown) (unknown) Chief Complaint: Trauma (units unknown) (unknown) (unknown) (no date) (unknown) (unknown) Chloride 107 (98-107 ) mmol/L (units unknown) (unknown) (unknown) (no date) (unknown) (unknown) Complete Blood Count AUTO DIFF Stat (units unknown) (unknown) (unknown) (no date) (unknown) (unknown) Comprehensive Metabolic Panel Stat (units unknown) (unknown) (unknown) (no date) (unknown) (unknown) Course (units unknown) (unknown) (unknown) (no date) (unknown) (unknown) Creatinine 1.61 H (0.66-1.25) mg/dL (units unknown) (unknown) (unknown) (no date) (unknown) (unknown) : 1940 Acct:[id number] (units unknown) (unknown) (unknown) (no date) (unknown) (unknown) Date of Service: 07/12/22 (units unknown) (unknown) (unknown) (no date) (unknown) (unknown) Departure (units unknown) (unknown) (unknown) (no date) (unknown) (unknown) Dictated by: Howard Yadav M.D. on 07/12/2022 at 12:39 ? ? (units unknown) (unknown) (unknown) (no date) (unknown) (unknown) Dictated by: Howard Yadav M.D. on 07/12/2022 at 12:40 ? (units unknown) (unknown) (unknown) (no date) (unknown) (unknown) Dictated by: Chapin Harvey M.D. on 07/12/2022 at 12:59 ? (units unknown) (unknown) (unknown) (no date) (unknown) (unknown) Dictated by: Chapin Harvey M.D. on 07/12/2022 at 13:08 ? ? (units unknown) (unknown) (unknown) (no date) (unknown) (unknown) Discharge Plan (units unknown) (unknown) (unknown) (no date) (unknown) (unknown) ED Orders (units unknown) (unknown) (unknown) (no date) (unknown) (unknown) EKG-12 Lead Stat (units unknown) (unknown) (unknown) (no date) (unknown) (unknown) ER Physician: Selina Flores D.O. (units unknown) (unknown) (unknown) (no date) (unknown) (unknown) EXTREMITIES: Normal range of motion, no clubbing or edema. Neurovascularly (units unknown) (unknown) (unknown) (no date) (unknown) (unknown) Emergency Report (units unknown) (unknown) (unknown) (no date) (unknown) (unknown) Eos # (Auto) 200 (0-450) /uL (units unknown) (unknown) (unknown) (no date) (unknown) (unknown) Eos % (Auto) 2.1 (2-4) % (units unknown) (unknown) (unknown) (no date) (unknown) (unknown) Estimated GFR 43 L (>60) mL/min (units unknown) (unknown) (unknown) (no date) (unknown) (unknown) Exam (units unknown) (unknown) (unknown) (no date) (unknown) (unknown) Extremity x-ray #1: (units unknown) (unknown) (unknown) (no date) (unknown) (unknown) FINDINGS:? (units unknown) (unknown) (unknown) (no date) (unknown) (unknown) Facet arthropathy, lumbar (units unknown) (unknown) (unknown) (no date) (unknown) (unknown) Family History (units unknown) (unknown) (unknown) (no date) (unknown) (unknown) Father Stroke (units unknown) (unknown) (unknown) (no date) (unknown) (unknown) Fresh garlic 1 tbsp PO .qday 06/18/18 11/13/19 (units unknown) (unknown) (unknown) (no date) (unknown) (unknown) Fresh garlic (units unknown) (unknown) (unknown) (no date) (unknown) (unknown) GENERAL: Alert pleasant well-appearing 81-year-old male (units unknown) (unknown) (unknown) (no date) (unknown) (unknown) General (units unknown) (unknown) (unknown) (no date) (unknown) (unknown) Globulin 3.1 (1.7-4.1) g/dL (units unknown) (unknown) (unknown) (no date) (unknown) (unknown) Glucose 126 H (80-110) mg/dL (units unknown) (unknown) (unknown) (no date) (unknown) (unknown) HEENT: Head atraumatic,EOMI, pupils reactive, face symmetric, moist mucous (units unknown) (unknown) (unknown) (no date) (unknown) (unknown) HPI - Fall (units unknown) (unknown) (unknown) (no date) (unknown) (unknown) HPI Narrative: (units unknown) (unknown) (unknown) (no date) (unknown) (unknown) Hct 46.5 (41-53) % (units unknown) (unknown) (unknown) (no date) (unknown) (unknown) Hgb 15.5 (13.5-17.5) g/dL (units unknown) (unknown) (unknown) (no date) (unknown) (unknown) History of Present Illness (units unknown) (unknown) (unknown) (no date) (unknown) (unknown) Home Medications (units unknown) (unknown) (unknown) (no date) (unknown) (unknown) IMPRESSION:? No acut e bony abnormality.? (units unknown) (unknown) (unknown) (no date) (unknown) (unknown) IMPRESSION:? No displaced fracture or pneumothorax. (units unknown) (unknown) (unknown) (no date) (unknown) (unknown) IMPRESSION:? (units unknown) (unknown) (unknown) (no date) (unknown) (unknown) INDICATIONS:? fall (units unknown) (unknown) (unknown) (no date) (unknown) (unknown) Image quality:? Excellent.? (units unknown) (unknown) (unknown) (no date) (unknown) (unknown) Imaging Data (units unknown) (unknown) (unknown) (no date) (unknown) (unknown) Initial Vital Signs (units unknown) (unknown) (unknown) (no date) (unknown) (unknown) Initial Vital Signs: (units unknown) (unknown) (unknown) (no date) (unknown) (unknown) [address] [address] (units unknown) (unknown) (unknown) (no date) (unknown) (unknown) [facility], CT, CT HEAD/BRAIN WO CON, 04/23/2019, 11:10. (units unknown) (unknown) (unknown) (no date) (unknown) (unknown) Lab Data (units unknown) (unknown) (unknown) (no date) (unknown) (unknown) Lab Results (units unknown) (unknown) (unknown) (no date) (unknown) (unknown) Labs: (units unknown) (unknown) (unknown) (no date) (unknown) (unknown) Lipase 102 (23-300) U/L (units unknown) (unknown) (unknown) (no date) (unknown) (unknown) Lipase Stat (units unknown) (unknown) (unknown) (no date) (unknown) (unknown) Lungs and pleura:? Lungs are clear.? No pleural effusions or pneumothorax.? (units unknown) (unknown) (unknown) (no date) (unknown) (unknown) Lymph # (Auto) 2100 (3320-8831) /uL (units unknown) (unknown) (unknown) (no date) (unknown) (unknown) Lymph % (Auto) 21.3 L (25-40) % (units unknown) (unknown) (unknown) (no date) (unknown) (unknown) MCH 29.2 (26-34) PG (units unknown) (unknown) (unknown) (no date) (unknown) (unknown) MCHC 33.3 (30-36) % (units unknown) (unknown) (unknown) (no date) (unknown) (unknown) MCV 87.7 (80-100) fL (units unknown) (unknown) (unknown) (no date) (unknown) (unknown) MDM - Fall (units unknown) (unknown) (unknown) (no date) (unknown) (unknown) Mediastinum:? Mediastinal contours appear normal.? Heart size is enlarged.? (units unknown) (unknown) (unknown) (no date) (unknown) (unknown) Medical History (units unknown) (unknown) (unknown) (no date) (unknown) (unknown) Medication Instructions Recorded Confirmed (units unknown) (unknown) (unknown) (no date) (unknown) (unknown) Medication Instructions Recorded (units unknown) (unknown) (unknown) (no date) (unknown) (unknown) Mode of arrival: Ambulatory (units unknown) (unknown) (unknown) (no date) (unknown) (unknown) [place] # (Auto) 700 (0-900) /uL (units unknown) (unknown) (unknown) (no date) (unknown) (unknown) [place] % (Auto) 6.9 (3-14) % (units unknown) (unknown) (unknown) (no date) (unknown) (unknown) Mother Hear t disease (units unknown) (unknown) (unknown) (no date) (unknown) (unknown) NECK: Cervical colla r in voice mild vertebral tenderness (units unknown) (unknown) (unknown) (no date) (unknown) (unknown) NEUROLOGICAL: Alert and oriented x4 coremaker floor strength equal bilaterally (units unknown) (unknown) (unknown) (no date) (unknown) (unknown) Neut # (Auto) 6700 (1793-6349) /uL (units unknown) (unknown) (unknown) (no date) (unknown) (unknown) Neut % (Auto) 68.7 (50-75) % (units unknown) (unknown) (unknown) (no date) (unknown) (unknown) No Action (units unknown) (unknown) (unknown) (no date) (unknown) (unknown) No acute intracrania l abnormality. (units unknown) (unknown) (unknown) (no date) (unknown) (unknown) No acute osseous abnormality. (units unknown) (unknown) (unknown) (no date) (unknown) (unknown) Noncontrast 3 mm thick sections acquired from the skull base to the T4 level.? (units unknown) (unknown) (unknown) (no date) (unknown) (unknown) Noncontrast 4.5 mm thick angled axial sections acquired from the foramen magnum (units unknown) (unknown) (unknown) (no date) (unknown) (unknown) Ordered: (units unknown) (unknown) (unknown) (no date) (unknown) (unknown) Orders (units unknown) (unknown) (unknown) (no date) (unknown) (unknown) Other intervertebral disc displacement, lumbosacral region (units unknown) (unknown) (unknown) (no date) (unknown) (unknown) Oxygen Delivery Method Room Air 07/12/22 11:44 (units unknown) (unknown) (unknown) (no date) (unknown) (unknown) Oxygen Delivery Method Room Air (units unknown) (unknown) (unknown) (no date) (unknown) (unknown) PROCEDURE:? CT CERVICAL SPINE WO CON (units unknown) (unknown) (unknown) (no date) (unknown) (unknown) PROCEDURE:? CT HEAD/BRAIN WO CON (units unknown) (unknown) (unknown) (no date) (unknown) (unknown) PROCEDURE:? XR CHEST 1V (units unknown) (unknown) (unknown) (no date) (unknown) (unknown) PROCEDURE:? XR SHOULDER RT MIN 2V (units unknown) (unknown) (unknown) (no date) (unknown) (unknown) Patient History (units unknown) (unknown) (unknown) (no date) (unknown) (unknown) Patient is a 81-year-old male history of hypertension, renal transplant (units unknown) (unknown) (unknown) (no date) (unknown) (unknown) Patient: Fran Muhammad MR#: [id number] (units unknown) (unknown) (unknown) (no date) (unknown) (unknown) Plt Count 213 (150-400) X103/uL (units unknown) (unknown) (unknown) (no date) (unknown) (unknown) Potassium 4.0 (3.4-5.1) mmol/L (units unknown) (unknown) (unknown) (no date) (unknown) (unknown) Prescriptions: (units unknown) (unknown) (unknown) (no date) (unknown) (unknown) Previous Rx's (units unknown) (unknown) (unknown) (no date) (unknown) (unknown) Pulse Oximetry 94 07/12/22 11:44 (units unknown) (unknown) (unknown) (no date) (unknown) (unknown) Pulse Oximetry 94 (units unknown) (unknown) (unknown) (no date) (unknown) (unknown) Pulse Rate 70 07/12/22 11:44 (units unknown) (unknown) (unknown) (no date) (unknown) (unknown) Pulse Rate 70 (units unknown) (unknown) (unknown) (no date) (unknown) (unknown) RBC 5.30 (4.5-5.9) X106/uL (units unknown) (unknown) (unknown) (no date) (unknown) (unknown) RDW 13.7 (11.6-14.8) % (units unknown) (unknown) (unknown) (no date) (unknown) (unknown) RESPIRATORY: Breath sounds equal bilaterally, no wheezes rales or rhonchi. (units unknown) (unknown) (unknown) (no date) (unknown) (unknown) ROS Unobtainable: Al l systems reviewed + are unremarkable except as noted in HPI (units unknown) (unknown) (unknown) (no date) (unknown) (unknown) Radiologist's Impression: (units unknown) (unknown) (unknown) (no date) (unknown) (unknown) Really complaining o f some right shoulder pain. Now he feels dizzy and (units unknown) (unknown) (unknown) (no date) (unknown) (unknown) Referrals: (units unknown) (unknown) (unknown) (no date) (unknown) (unknown) Related Data (units unknown) (unknown) (unknown) (no date) (unknown) (unknown) Respiratory Rate 14 07/12/22 11:44 (units unknown) (unknown) (unknown) (no date) (unknown) (unknown) Respiratory Rate 14 (units unknown) (unknown) (unknown) (no date) (unknown) (unknown) Review of Systems (units unknown) (unknown) (unknown) (no date) (unknown) (unknown) Right shoulder decreased abduction no clavicle step-off no gross shoulder (units unknown) (unknown) (unknown) (no date) (unknown) (unknown) Right shoulder injury (units unknown) (unknown) (unknown) (no date) (unknown) (unknown) SKIN: Warm, dry, no laceration, no petechiae, no rashes or lesions. (units unknown) (unknown) (unknown) (no date) (unknown) (unknown) Sagittal (units unknown) (unknown) (unknown) (no date) (unknown) (unknown) Signed By: (units unknown) (unknown) (unknown) (no date) (unknown) (unknown) Sinuses:? Visualized sinuses and mastoids are clear.? (units unknown) (unknown) (unknown) (no date) (unknown) (unknown) Skull and face:? Calvarium and visualized facial bones are intact, without (units unknown) (unknown) (unknown) (no date) (unknown) (unknown) Smoking Status: Neve r smoker (units unknown) (unknown) (unknown) (no date) (unknown) (unknown) Social History (units unknown) (unknown) (unknown) (no date) (unknown) (unknown) Sodium 136 L (137-145) mmol/L (units unknown) (unknown) (unknown) (no date) (unknown) (unknown) Soft tissues:? No suspicious soft tissue calcifications.? (units unknown) (unknown) (unknown) (no date) (unknown) (unknown) Soft tissues:? Prevertebral soft tissues are normal in thickness.? No (units unknown) (unknown) (unknown) (no date) (unknown) (unknown) Source: patient (units unknown) (unknown) (unknown) (no date) (unknown) (unknown) Stated Complaint: Fall, Dizzy, cant turn head, R shoulder/abd (units unknown) (unknown) (unknown) (no date) (unknown) (unknown) Substance Use Type: does not use (units unknown) (unknown) (unknown) (no date) (unknown) (unknown) Surgical changes and devices:? None.? (units unknown) (unknown) (unknown) (no date) (unknown) (unknown) TECHNIQUE:? 2 views of the shoulder were acquired.? (units unknown) (unknown) (unknown) (no date) (unknown) (unknown) TECHNIQUE:? One view of the chest was acquired.? (units unknown) (unknown) (unknown) (no date) (unknown) (unknown) TECHNIQUE:? (units unknown) (unknown) (unknown) (no date) (unknown) (unknown) Temperature 98.1 F 07/12/22 11:44 (units unknown) (unknown) (unknown) (no date) (unknown) (unknown) Temperature 98.1 F (units unknown) (unknown) (unknown) (no date) (unknown) (unknown) Time Seen by Provider: 07/12/22 11:55 (units unknown) (unknown) (unknown) (no date) (unknown) (unknown) Total Bilirubin 0.8 (0.2-1.3) mg/dL (units unknown) (unknown) (unknown) (no date) (unknown) (unknown) Total Creatine Kinas e 37 L (55-170) U/L (units unknown) (unknown) (unknown) (no date) (unknown) (unknown) Total Protein 7.3 (6.3-8.2) g/dL (units unknown) (unknown) (unknown) (no date) (unknown) (unknown) Troponin + CK Cardia c Panel Stat (units unknown) (unknown) (unknown) (no date) (unknown) (unknown) Troponin I < 0.012 (0.01-0.034) ng/mL (units unknown) (unknown) (unknown) (no date) (unknown) (unknown) Ventricles (units unknown) (unknown) (unknown) (no date) (unknown) (unknown) Vital Signs - 8 hr (units unknown) (unknown) (unknown) (no date) (unknown) (unknown) Vital Signs (units unknown) (unknown) (unknown) (no date) (unknown) (unknown) Vital signs: (units unknown) (unknown) (unknown) (no date) (unknown) (unknown) WBC 9.7 (4.5-11.0) X103/uL (units unknown) (unknown) (unknown) (no date) (unknown) (unknown) XR shoulder RT min 2 V Stat (units unknown) (unknown) (unknown) (no date) (unknown) (unknown) [Embedded Image Not Available] (units unknown) (unknown) (unknown) (no date) (unknown) (unknown) abnormality distal radial pulse intact (units unknown) (unknown) (unknown) (no date) (unknown) (unknown) about 5 stairs to th e bottom of the staircase. tried to help get him up he (units unknown) (unknown) (unknown) (no date) (unknown) (unknown) alcohol intake frequency: 0-2 drinks per day (units unknown) (unknown) (unknown) (no date) (unknown) (unknown) alcohol intake: former (units unknown) (unknown) (unknown) (no date) (unknown) (unknown) amlodipine 5 mg tablet 5 mg PO BID 01/16/19 11/13/19 (units unknown) (unknown) (unknown) (no date) (unknown) (unknown) amlodipine 5 mg tablet (units unknown) (unknown) (unknown) (no date) (unknown) (unknown) and below (units unknown) (unknown) (unknown) (no date) (unknown) (unknown) and coronal reformat s were then constructed.? For radiation dose reduction, the (units unknown) (unknown) (unknown) (no date) (unknown) (unknown) appear intact.? (units unknown) (unknown) (unknown) (no date) (unknown) (unknown) appear (units unknown) (unknown) (unknown) (no date) (unknown) (unknown) are normal in size and shape.? (units unknown) (unknown) (unknown) (no date) (unknown) (unknown) aspirin 81 mg chewable tablet 81 mg PO DAILY 01/16/19 11/13/19 (units unknown) (unknown) (unknown) (no date) (unknown) (unknown) aspirin 81 mg tablet,chewable (units unknown) (unknown) (unknown) (no date) (unknown) (unknown) benzonatate 200 mg capsule 200 mg PO TID PRN cough #20 caps 07/10/22 (units unknown) (unknown) (unknown) (no date) (unknown) (unknown) benzonatate 200 mg capsule (units unknown) (unknown) (unknown) (no date) (unknown) (unknown) cervical spine.? Visualized superior ribs are intact.? (units unknown) (unknown) (unknown) (no date) (unknown) (unknown) chlorthalidone 25 mg tablet 12.5 mg PO DAILY 01/16/19 11/13/19 (units unknown) (unknown) (unknown) (no date) (unknown) (unknown) chlorthalidone 25 mg tablet (units unknown) (unknown) (unknown) (no date) (unknown) (unknown) consistent with chronic microvascular ischemic change. Age-related parenchymal (units unknown) (unknown) (unknown) (no date) (unknown) (unknown) eventually made it up. However he was in severe pain throughout the night. (units unknown) (unknown) (unknown) (no date) (unknown) (unknown) following (units unknown) (unknown) (unknown) (no date) (unknown) (unknown) guarding or rebound. (units unknown) (unknown) (unknown) (no date) (unknown) (unknown) he had his hand on the railing when the next thing he knew he would fallen down (units unknown) (unknown) (unknown) (no date) (unknown) (unknown) hematomas.? No apica l pneumothoraces.? (units unknown) (unknown) (unknown) (no date) (unknown) (unknown) hypodensity (units unknown) (unknown) (unknown) (no date) (unknown) (unknown) immediate-release (units unknown) (unknown) (unknown) (no date) (unknown) (unknown) in a large vascular distribution to suggest acute infarction. Periventricular (units unknown) (unknown) (unknown) (no date) (unknown) (unknown) intact (units unknown) (unknown) (unknown) (no date) (unknown) (unknown) lesions.? (units unknown) (unknown) (unknown) (no date) (unknown) (unknown) lightheaded. He is having some cervical pain. No nausea vomiting numbness (units unknown) (unknown) (unknown) (no date) (unknown) (unknown) lisinopril AdvReac Intermediate Verified 07/12/22 11:49 (units unknown) (unknown) (unknown) (no date) (unknown) (unknown) losartan 25 mg table t 50 mg PO DAILY 07/05/20 07/05/20 (units unknown) (unknown) (unknown) (no date) (unknown) (unknown) losartan 25 mg tablet (units unknown) (unknown) (unknown) (no date) (unknown) (unknown) loss. (units unknown) (unknown) (unknown) (no date) (unknown) (unknown) marital status: (units unknown) (unknown) (unknown) (no date) (unknown) (unknown) membranes (units unknown) (unknown) (unknown) (no date) (unknown) (unknown) multivitamin 1 tab P O DAILY 01/16/19 11/13/19 (units unknown) (unknown) (unknown) (no date) (unknown) (unknown) multivitamin Tablet (units unknown) (unknown) (unknown) (no date) (unknown) (unknown) paravertebral (units unknown) (unknown) (unknown) (no date) (unknown) (unknown) patient (units unknown) (unknown) (unknown) (no date) (unknown) (unknown) prednisone 5 mg tablet 5 mg PO DAILY 01/16/19 11/13/19 (units unknown) (unknown) (unknown) (no date) (unknown) (unknown) prednisone 5 mg tablet (units unknown) (unknown) (unknown) (no date) (unknown) (unknown) primidone AdvReac Intermediate Verified 07/12/22 11:49 (units unknown) (unknown) (unknown) (no date) (unknown) (unknown) ribs (units unknown) (unknown) (unknown) (no date) (unknown) (unknown) secondary to nephrosclerosis, chronic back pain presents today after a fall (units unknown) (unknown) (unknown) (no date) (unknown) (unknown) simvastatin AdvReac Intermediate Verified 07/12/22 11:49 (units unknown) (unknown) (unknown) (no date) (unknown) (unknown) size.? (units unknown) (unknown) (unknown) (no date) (unknown) (unknown) suspicious (units unknown) (unknown) (unknown) (no date) (unknown) (unknown) tacrolimus 1 mg capsule (units unknown) (unknown) (unknown) (no date) (unknown) (unknown) tacrolimus 1 mg capsule, 2 mg PO Q12H 01/16/19 11/13/19 (units unknown) (unknown) (unknown) (no date) (unknown) (unknown) tamsulosin 0.4 mg capsule (Flomax) 0.8 mg PO DAILY 02/26/19 11/13/19 (units unknown) (unknown) (unknown) (no date) (unknown) (unknown) tamsulosin [Flomax] 0.4 mg capsule (units unknown) (unknown) (unknown) (no date) (unknown) (unknown) the (units unknown) (unknown) (unknown) (no date) (unknown) (unknown) tingling or weakness . He does take aspirin daily no fever or chills. (units unknown) (unknown) (unknown) (no date) (unknown) (unknown) to the (units unknown) (unknown) (unknown) (no date) (unknown) (unknown) tree pollen Allergy Intermediate Uncoded 07/10/22 12:48 (units unknown) (unknown) (unknown) (no date) (unknown) (unknown) unremarkable.? (units unknown) (unknown) (unknown) (no date) (unknown) (unknown) vertex, with coronal and sagittal reformats.? For radiation dose reduction, the (units unknown) (unknown) (unknown) (no date) (unknown) (unknown) was used:? automated exposure control, adjustment of mA and/or kV according to (units unknown) (unknown) (unknown) (no date) (unknown) (unknown) yesterday. He report s that he was going down the stairs he was carrying his dog (units unknown) (unknown) (unknown) (no date) (unknown) (unknown) zolpidem [From Ambien] AdvReac Intermediate Verified 07/12/22 11:49 (units unknown) (unknown) Result panel 92 (unknown) (no date) (unknown) (unknown) (no value) (units unknown) (unknown) (unknown) (no date) (unknown) (unknown) *Continue to take medications as directed (units unknown) (unknown) (unknown) (no date) (unknown) (unknown) *Follow up with your primary care provider in 2-3 days or call [phone] (units unknown) (unknown) (unknown) (no date) (unknown) (unknown) *Return to ER if you should have increasing pain numbness tingling weakness (units unknown) (unknown) (unknown) (no date) (unknown) (unknown) *What to do: At this time no injuries blood work is reassuring, expect to be (units unknown) (unknown) (unknown) (no date) (unknown) (unknown) *You have been diagnosed with cervical strain, right shoulder sprain (units unknown) (unknown) (unknown) (no date) (unknown) (unknown) 0.8 mg PO DAILY (units unknown) (unknown) (unknown) (no date) (unknown) (unknown) 07/12/22 07/12/22 Range/Units (units unknown) (unknown) (unknown) (no date) (unknown) (unknown) 07/12/22 11:55 (units unknown) (unknown) (unknown) (no date) (unknown) (unknown) 07/12/22 11:56 (units unknown) (unknown) (unknown) (no date) (unknown) (unknown) 07/12/22 11:58 (units unknown) (unknown) (unknown) (no date) (unknown) (unknown) 07/12/22 12:31 (units unknown) (unknown) (unknown) (no date) (unknown) (unknown) 07/12/22 (units unknown) (unknown) (unknown) (no date) (unknown) (unknown) 1 tab PO DAILY (units unknown) (unknown) (unknown) (no date) (unknown) (unknown) 1 tbsp PO .qday (units unknown) (unknown) (unknown) (no date) (unknown) (unknown) 11:44 (units unknown) (unknown) (unknown) (no date) (unknown) (unknown) 11:55 11:55 (units unknown) (unknown) (unknown) (no date) (unknown) (unknown) 12.5 mg PO DAILY (units unknown) (unknown) (unknown) (no date) (unknown) (unknown) 14:03.? (units unknown) (unknown) (unknown) (no date) (unknown) (unknown) 2 mg PO Q12H (units unknown) (unknown) (unknown) (no date) (unknown) (unknown) 200 mg PO TID PRN (Reason: cough) Qty: 20 0RF (units unknown) (unknown) (unknown) (no date) (unknown) (unknown) [id number] (units unknown) (unknown) (unknown) (no date) (unknown) (unknown) 5 mg PO BID (units unknown) (unknown) (unknown) (no date) (unknown) (unknown) 5 mg PO DAILY (units unknown) (unknown) (unknown) (no date) (unknown) (unknown) 50 mg PO DAILY (units unknown) (unknown) (unknown) (no date) (unknown) (unknown) 81 mg PO DAILY (units unknown) (unknown) (unknown) (no date) (unknown) (unknown) ? (units unknown) (unknown) (unknown) (no date) (unknown) (unknown) ABDOMEN: Soft, nontender. Normoactive bowel sounds all 4 quadrants. No (units unknown) (unknown) (unknown) (no date) (unknown) (unknown) ALT 28 (<50) IU/L (units unknown) (unknown) (unknown) (no date) (unknown) (unknown) AST 20 (17-59) IU/L (units unknown) (unknown) (unknown) (no date) (unknown) (unknown) Acromioclavicular joint separation, type 1 (units unknown) (unknown) (unknown) (no date) (unknown) (unknown) Activity Restrictions/Addition al Instructions: (units unknown) (unknown) (unknown) (no date) (unknown) (unknown) Age/Sex: 81 / M (units unknown) (unknown) (unknown) (no date) (unknown) (unknown) Albumin 4.2 (3.5-5.0 ) g/dL (units unknown) (unknown) (unknown) (no date) (unknown) (unknown) Albumin/Globulin Ratio 1.4 (1.0-2.8) (units unknown) (unknown) (unknown) (no date) (unknown) (unknown) Alkaline Phosphatase 67 (38-126) U/L (units unknown) (unknown) (unknown) (no date) (unknown) (unknown) Allergies (units unknown) (unknown) (unknown) (no date) (unknown) (unknown) Allergy/AdvReac Type Severity Reaction Status Date / Time (units unknown) (unknown) (unknown) (no date) (unknown) (unknown) Approved by: Chapin Harvey M.D. on 07/12/2022 at 13:10 ? (units unknown) (unknown) (unknown) (no date) (unknown) (unknown) BUN 41 H (9-20) mg/dL (units unknown) (unknown) (unknown) (no date) (unknown) (unknown) BUN/Creatinine Ratio 25.5 H (6-22) (units unknown) (unknown) (unknown) (no date) (unknown) (unknown) Baso # (Auto) 100 (0-100) /uL (units unknown) (unknown) (unknown) (no date) (unknown) (unknown) Baso % (Auto) 1.0 (0-2) % (units unknown) (unknown) (unknown) (no date) (unknown) (unknown) Bettes,Jenni, STRUCTURAL MANAGER [Primary Care Provider] (units unknown) (unknown) (unknown) (no date) (unknown) (unknown) Blood Pressure 178/8 3 H 07/12/22 11:44 (units unknown) (unknown) (unknown) (no date) (unknown) (unknown) Blood Pressure 178/8 3 H (units unknown) (unknown) (unknown) (no date) (unknown) (unknown) Bones and chest wall:? No suspicious bony lesions.? Overlying soft tissues (units unknown) (unknown) (unknown) (no date) (unknown) (unknown) Bones:? No fractures or dislocations.? Mild to moderate degenerative change in (units unknown) (unknown) (unknown) (no date) (unknown) (unknown) Bones:? No fractures or dislocations.? No suspicious bony lesions.? Visualized (units unknown) (unknown) (unknown) (no date) (unknown) (unknown) Brain:? No midline shift.? No intracranial masses or hemorrhage.? No area of (units unknown) (unknown) (unknown) (no date) (unknown) (unknown) CARDIOVASCULAR: Regular rate and rhythm without murmurs, rubs or gallops. (units unknown) (unknown) (unknown) (no date) (unknown) (unknown) CK-MB (CK-2) Rel Index TNP (units unknown) (unknown) (unknown) (no date) (unknown) (unknown) CK-MB (CK-2) TNP (units unknown) (unknown) (unknown) (no date) (unknown) (unknown) COMPARISON:? [facility], CR, XR SHOULDER RT MIN 2V, 11/13/2019, 14:12. (units unknown) (unknown) (unknown) (no date) (unknown) (unknown) COMPARISON:? None. (units unknown) (unknown) (unknown) (no date) (unknown) (unknown) COMPARISON:? [facility], CT, CT HEAD WITHOUT CONTRAST, 04/26/2021, (units unknown) (unknown) (unknown) (no date) (unknown) (unknown) CSF spaces:? Basal cisterns are patent.? No extra-axial fluid collections.? (units unknown) (unknown) (unknown) (no date) (unknown) (unknown) CT - cervical spine: (units unknown) (unknown) (unknown) (no date) (unknown) (unknown) CT cervical spine wo con Stat (units unknown) (unknown) (unknown) (no date) (unknown) (unknown) CT head/brain wo con Stat (units unknown) (unknown) (unknown) (no date) (unknown) (unknown) CT scan - head: (units unknown) (unknown) (unknown) (no date) (unknown) (unknown) Calcium 9.0 (8.4-10.2) mg/dL (units unknown) (unknown) (unknown) (no date) (unknown) (unknown) Carbon Dioxide 20 L (22-32) mmol/L (units unknown) (unknown) (unknown) (no date) (unknown) (unknown) Chest [XR chest 1V] Stat (units unknown) (unknown) (unknown) (no date) (unknown) (unknown) Chest x-ray: (units unknown) (unknown) (unknown) (no date) (unknown) (unknown) Chief Complaint: Trauma (units unknown) (unknown) (unknown) (no date) (unknown) (unknown) Chloride 107 (98-107 ) mmol/L (units unknown) (unknown) (unknown) (no date) (unknown) (unknown) Clinical Impression: (units unknown) (unknown) (unknown) (no date) (unknown) (unknown) Complete Blood Count AUTO DIFF Stat (units unknown) (unknown) (unknown) (no date) (unknown) (unknown) Comprehensive Metabolic Panel Stat (units unknown) (unknown) (unknown) (no date) (unknown) (unknown) Course (units unknown) (unknown) (unknown) (no date) (unknown) (unknown) Creatinine 1.61 H (0.66-1.25) mg/dL (units unknown) (unknown) (unknown) (no date) (unknown) (unknown) : 1940 Acct:[id number] (units unknown) (unknown) (unknown) (no date) (unknown) (unknown) Date of Service: 07/12/22 (units unknown) (unknown) (unknown) (no date) (unknown) (unknown) Departure (units unknown) (unknown) (unknown) (no date) (unknown) (unknown) Dictated by: Howard Yadav M.D. on 07/12/2022 at 12:39 ? ? (units unknown) (unknown) (unknown) (no date) (unknown) (unknown) Dictated by: Howard Yadav M.D. on 07/12/2022 at 12:40 ? (units unknown) (unknown) (unknown) (no date) (unknown) (unknown) Dictated by: Chapin Harvey M.D. on 07/12/2022 at 12:59 ? (units unknown) (unknown) (unknown) (no date) (unknown) (unknown) Dictated by: Chapin Harvey M.D. on 07/12/2022 at 13:08 ? ? (units unknown) (unknown) (unknown) (no date) (unknown) (unknown) Discharge Plan (units unknown) (unknown) (unknown) (no date) (unknown) (unknown) ED Orders (units unknown) (unknown) (unknown) (no date) (unknown) (unknown) EKG-12 Lead Stat (units unknown) (unknown) (unknown) (no date) (unknown) (unknown) ER Physician: Selina Flores D.O. (units unknown) (unknown) (unknown) (no date) (unknown) (unknown) EXTREMITIES: Normal range of motion, no clubbing or edema. Neurovascularly (units unknown) (unknown) (unknown) (no date) (unknown) (unknown) Emergency Report (units unknown) (unknown) (unknown) (no date) (unknown) (unknown) Eos # (Auto) 200 (0-450) /uL (units unknown) (unknown) (unknown) (no date) (unknown) (unknown) Eos % (Auto) 2.1 (2-4) % (units unknown) (unknown) (unknown) (no date) (unknown) (unknown) Estimated GFR 43 L (>60) mL/min (units unknown) (unknown) (unknown) (no date) (unknown) (unknown) Exam (units unknown) (unknown) (unknown) (no date) (unknown) (unknown) Extremity x-ray #1: (units unknown) (unknown) (unknown) (no date) (unknown) (unknown) FINDINGS:? (units unknown) (unknown) (unknown) (no date) (unknown) (unknown) Facet arthropathy, lumbar (units unknown) (unknown) (unknown) (no date) (unknown) (unknown) Family History (units unknown) (unknown) (unknown) (no date) (unknown) (unknown) Father Stroke (units unknown) (unknown) (unknown) (no date) (unknown) (unknown) Fresh garlic 1 tbsp PO .qday 06/18/18 11/13/19 (units unknown) (unknown) (unknown) (no date) (unknown) (unknown) Fresh garlic (units unknown) (unknown) (unknown) (no date) (unknown) (unknown) GENERAL: Alert pleasant well-appearing 81-year-old male (units unknown) (unknown) (unknown) (no date) (unknown) (unknown) General (units unknown) (unknown) (unknown) (no date) (unknown) (unknown) Globulin 3.1 (1.7-4.1) g/dL (units unknown) (unknown) (unknown) (no date) (unknown) (unknown) Glucose 126 H (80-110) mg/dL (units unknown) (unknown) (unknown) (no date) (unknown) (unknown) HEENT: Head atraumatic,EOMI, pupils reactive, face symmetric, moist mucous (units unknown) (unknown) (unknown) (no date) (unknown) (unknown) HPI - Fall (units unknown) (unknown) (unknown) (no date) (unknown) (unknown) HPI Narrative: (units unknown) (unknown) (unknown) (no date) (unknown) (unknown) Hct 46.5 (41-53) % (units unknown) (unknown) (unknown) (no date) (unknown) (unknown) Hgb 15.5 (13.5-17.5) g/dL (units unknown) (unknown) (unknown) (no date) (unknown) (unknown) History of Present Illness (units unknown) (unknown) (unknown) (no date) (unknown) (unknown) Home Medications (units unknown) (unknown) (unknown) (no date) (unknown) (unknown) IMPRESSION:? No acut e bony abnormality.? (units unknown) (unknown) (unknown) (no date) (unknown) (unknown) IMPRESSION:? No displaced fracture or pneumothorax. (units unknown) (unknown) (unknown) (no date) (unknown) (unknown) IMPRESSION:? (units unknown) (unknown) (unknown) (no date) (unknown) (unknown) INDICATIONS:? fall (units unknown) (unknown) (unknown) (no date) (unknown) (unknown) Image quality:? Excellent.? (units unknown) (unknown) (unknown) (no date) (unknown) (unknown) Imaging Data (units unknown) (unknown) (unknown) (no date) (unknown) (unknown) Initial Vital Signs (units unknown) (unknown) (unknown) (no date) (unknown) (unknown) Initial Vital Signs: (units unknown) (unknown) (unknown) (no date) (unknown) (unknown) Instructions: DI for Shoulder Sprain, Whiplash (units unknown) (unknown) (unknown) (no date) (unknown) (unknown) [address] [address] (units unknown) (unknown) (unknown) (no date) (unknown) (unknown) [facility], CT, CT HEAD/BRAIN WO CON, 04/23/2019, 11:10. (units unknown) (unknown) (unknown) (no date) (unknown) (unknown) Lab Data (units unknown) (unknown) (unknown) (no date) (unknown) (unknown) Lab Results (units unknown) (unknown) (unknown) (no date) (unknown) (unknown) Labs: (units unknown) (unknown) (unknown) (no date) (unknown) (unknown) Lipase 102 (23-300) U/L (units unknown) (unknown) (unknown) (no date) (unknown) (unknown) Lipase Stat (units unknown) (unknown) (unknown) (no date) (unknown) (unknown) Lungs and pleura:? Lungs are clear.? No pleural effusions or pneumothorax.? (units unknown) (unknown) (unknown) (no date) (unknown) (unknown) Lymph # (Auto) 2100 (9794-8389) /uL (units unknown) (unknown) (unknown) (no date) (unknown) (unknown) Lymph % (Auto) 21.3 L (25-40) % (units unknown) (unknown) (unknown) (no date) (unknown) (unknown) MCH 29.2 (26-34) PG (units unknown) (unknown) (unknown) (no date) (unknown) (unknown) MCHC 33.3 (30-36) % (units unknown) (unknown) (unknown) (no date) (unknown) (unknown) MCV 87.7 (80-100) fL (units unknown) (unknown) (unknown) (no date) (unknown) (unknown) MDM - Fall (units unknown) (unknown) (unknown) (no date) (unknown) (unknown) MDM Narrative (units unknown) (unknown) (unknown) (no date) (unknown) (unknown) Mediastinum:? Mediastinal contours appear normal.? Heart size is enlarged.? (units unknown) (unknown) (unknown) (no date) (unknown) (unknown) Medical History (units unknown) (unknown) (unknown) (no date) (unknown) (unknown) Medical decision making narrative: (units unknown) (unknown) (unknown) (no date) (unknown) (unknown) Medication Instructions Recorded Confirmed (units unknown) (unknown) (unknown) (no date) (unknown) (unknown) Medication Instructions Recorded (units unknown) (unknown) (unknown) (no date) (unknown) (unknown) Mode of arrival: Ambulatory (units unknown) (unknown) (unknown) (no date) (unknown) (unknown) [place] # (Auto) 700 (0-900) /uL (units unknown) (unknown) (unknown) (no date) (unknown) (unknown) [place] % (Auto) 6.9 (3-14) % (units unknown) (unknown) (unknown) (no date) (unknown) (unknown) Mother Hear t disease (units unknown) (unknown) (unknown) (no date) (unknown) (unknown) NECK: Cervical colla r in voice mild vertebral tenderness (units unknown) (unknown) (unknown) (no date) (unknown) (unknown) NEUROLOGICAL: Alert and oriented x4 coremaker floor strength equal bilaterally (units unknown) (unknown) (unknown) (no date) (unknown) (unknown) Neut # (Auto) 6700 (7473-8359) /uL (units unknown) (unknown) (unknown) (no date) (unknown) (unknown) Neut % (Auto) 68.7 (50-75) % (units unknown) (unknown) (unknown) (no date) (unknown) (unknown) No Action (units unknown) (unknown) (unknown) (no date) (unknown) (unknown) No acute intracrania l abnormality. (units unknown) (unknown) (unknown) (no date) (unknown) (unknown) No acute osseous abnormality. (units unknown) (unknown) (unknown) (no date) (unknown) (unknown) Noncontrast 3 mm thick sections acquired from the skull base to the T4 level.? (units unknown) (unknown) (unknown) (no date) (unknown) (unknown) Noncontrast 4.5 mm thick angled axial sections acquired from the foramen magnum (units unknown) (unknown) (unknown) (no date) (unknown) (unknown) Ordered: (units unknown) (unknown) (unknown) (no date) (unknown) (unknown) Orders (units unknown) (unknown) (unknown) (no date) (unknown) (unknown) Other intervertebral disc displacement, lumbosacral region (units unknown) (unknown) (unknown) (no date) (unknown) (unknown) Oxygen Delivery Method Room Air 07/12/22 11:44 (units unknown) (unknown) (unknown) (no date) (unknown) (unknown) Oxygen Delivery Method Room Air (units unknown) (unknown) (unknown) (no date) (unknown) (unknown) PROCEDURE:? CT CERVICAL SPINE WO CON (units unknown) (unknown) (unknown) (no date) (unknown) (unknown) PROCEDURE:? CT HEAD/BRAIN WO CON (units unknown) (unknown) (unknown) (no date) (unknown) (unknown) PROCEDURE:? XR CHEST 1V (units unknown) (unknown) (unknown) (no date) (unknown) (unknown) PROCEDURE:? XR SHOULDER RT MIN 2V (units unknown) (unknown) (unknown) (no date) (unknown) (unknown) Patient 81-year-old male who presents after what like a possible mechanical fall (units unknown) (unknown) (unknown) (no date) (unknown) (unknown) Patient Disposition: Home (units unknown) (unknown) (unknown) (no date) (unknown) (unknown) Patient History (units unknown) (unknown) (unknown) (no date) (unknown) (unknown) Patient is a 81-year-old male history of hypertension, renal transplant (units unknown) (unknown) (unknown) (no date) (unknown) (unknown) Patient: Fran Muhammad MR#: [id number] (units unknown) (unknown) (unknown) (no date) (unknown) (unknown) Plt Count 213 (150-400) X103/uL (units unknown) (unknown) (unknown) (no date) (unknown) (unknown) Potassium 4.0 (3.4-5.1) mmol/L (units unknown) (unknown) (unknown) (no date) (unknown) (unknown) Prescriptions: (units unknown) (unknown) (unknown) (no date) (unknown) (unknown) Previous Rx's (units unknown) (unknown) (unknown) (no date) (unknown) (unknown) Pulse Oximetry 94 07/12/22 11:44 (units unknown) (unknown) (unknown) (no date) (unknown) (unknown) Pulse Oximetry 94 (units unknown) (unknown) (unknown) (no date) (unknown) (unknown) Pulse Rate 70 07/12/22 11:44 (units unknown) (unknown) (unknown) (no date) (unknown) (unknown) Pulse Rate 70 (units unknown) (unknown) (unknown) (no date) (unknown) (unknown) RBC 5.30 (4.5-5.9) X106/uL (units unknown) (unknown) (unknown) (no date) (unknown) (unknown) RDW 13.7 (11.6-14.8) % (units unknown) (unknown) (unknown) (no date) (unknown) (unknown) RESPIRATORY: Breath sounds equal bilaterally, no wheezes rales or rhonchi. (units unknown) (unknown) (unknown) (no date) (unknown) (unknown) ROS Unobtainable: Al l systems reviewed + are unremarkable except as noted in HPI (units unknown) (unknown) (unknown) (no date) (unknown) (unknown) Radiologist's Impression: (units unknown) (unknown) (unknown) (no date) (unknown) (unknown) Really complaining o f some right shoulder pain. Now he feels dizzy and (units unknown) (unknown) (unknown) (no date) (unknown) (unknown) Referrals: (units unknown) (unknown) (unknown) (no date) (unknown) (unknown) Related Data (units unknown) (unknown) (unknown) (no date) (unknown) (unknown) Respiratory Rate 14 07/12/22 11:44 (units unknown) (unknown) (unknown) (no date) (unknown) (unknown) Respiratory Rate 14 (units unknown) (unknown) (unknown) (no date) (unknown) (unknown) Review of Systems (units unknown) (unknown) (unknown) (no date) (unknown) (unknown) Right shoulder decreased abduction no clavicle step-off no gross shoulder (units unknown) (unknown) (unknown) (no date) (unknown) (unknown) Right shoulder injury (units unknown) (unknown) (unknown) (no date) (unknown) (unknown) SKIN: Warm, dry, no laceration, no petechiae, no rashes or lesions. (units unknown) (unknown) (unknown) (no date) (unknown) (unknown) Sagittal (units unknown) (unknown) (unknown) (no date) (unknown) (unknown) Signed By: (units unknown) (unknown) (unknown) (no date) (unknown) (unknown) Sinuses:? Visualized sinuses and mastoids are clear.? (units unknown) (unknown) (unknown) (no date) (unknown) (unknown) Skull and face:? Calvarium and visualized facial bones are intact, without (units unknown) (unknown) (unknown) (no date) (unknown) (unknown) Smoking Status: Sladejuliette r smoker (units unknown) (unknown) (unknown) (no date) (unknown) (unknown) Social History (units unknown) (unknown) (unknown) (no date) (unknown) (unknown) Sodium 136 L (137-145) mmol/L (units unknown) (unknown) (unknown) (no date) (unknown) (unknown) Soft tissues:? No suspicious soft tissue calcifications.? (units unknown) (unknown) (unknown) (no date) (unknown) (unknown) Soft tissues:? Prevertebral soft tissues are normal in thickness.? No (units unknown) (unknown) (unknown) (no date) (unknown) (unknown) Source: patient (units unknown) (unknown) (unknown) (no date) (unknown) (unknown) Sprain of shoulder, right, Cervical sprain (units unknown) (unknown) (unknown) (no date) (unknown) (unknown) Stand Alone Forms: Patient Portal/API (units unknown) (unknown) (unknown) (no date) (unknown) (unknown) Stated Complaint: Fall, Dizzy, cant turn head, R shoulder/abd (units unknown) (unknown) (unknown) (no date) (unknown) (unknown) Substance Use Type: does not use (units unknown) (unknown) (unknown) (no date) (unknown) (unknown) Surgical changes and devices:? None.? (units unknown) (unknown) (unknown) (no date) (unknown) (unknown) TECHNIQUE:? 2 views of the shoulder were acquired.? (units unknown) (unknown) (unknown) (no date) (unknown) (unknown) TECHNIQUE:? One view of the chest was acquired.? (units unknown) (unknown) (unknown) (no date) (unknown) (unknown) TECHNIQUE:? (units unknown) (unknown) (unknown) (no date) (unknown) (unknown) Temperature 98.1 F 07/12/22 11:44 (units unknown) (unknown) (unknown) (no date) (unknown) (unknown) Temperature 98.1 F (units unknown) (unknown) (unknown) (no date) (unknown) (unknown) Time Seen by Provider: 07/12/22 11:55 (units unknown) (unknown) (unknown) (no date) (unknown) (unknown) Total Bilirubin 0.8 (0.2-1.3) mg/dL (units unknown) (unknown) (unknown) (no date) (unknown) (unknown) Total Creatine Kinas e 37 L (55-170) U/L (units unknown) (unknown) (unknown) (no date) (unknown) (unknown) Total Protein 7.3 (6.3-8.2) g/dL (units unknown) (unknown) (unknown) (no date) (unknown) (unknown) Troponin + CK Cardia c Panel Stat (units unknown) (unknown) (unknown) (no date) (unknown) (unknown) Troponin I < 0.012 (0.01-0.034) ng/mL (units unknown) (unknown) (unknown) (no date) (unknown) (unknown) Tylenol as needed fo r pain (units unknown) (unknown) (unknown) (no date) (unknown) (unknown) Ventricles (units unknown) (unknown) (unknown) (no date) (unknown) (unknown) Vital Signs - 8 hr (units unknown) (unknown) (unknown) (no date) (unknown) (unknown) Vital Signs (units unknown) (unknown) (unknown) (no date) (unknown) (unknown) Vital signs: (units unknown) (unknown) (unknown) (no date) (unknown) (unknown) WBC 9.7 (4.5-11.0) X103/uL (units unknown) (unknown) (unknown) (no date) (unknown) (unknown) XR shoulder RT min 2 V Stat (units unknown) (unknown) (unknown) (no date) (unknown) (unknown) [Embedded Image Not Available] (units unknown) (unknown) (unknown) (no date) (unknown) (unknown) abnormality distal radial pulse intact (units unknown) (unknown) (unknown) (no date) (unknown) (unknown) abnormality. Blood work is overall reassuring. No need for any further workup (units unknown) (unknown) (unknown) (no date) (unknown) (unknown) about 5 stairs to th e bottom of the staircase. tried to help get him up he (units unknown) (unknown) (unknown) (no date) (unknown) (unknown) activity not recommended some movement will help (units unknown) (unknown) (unknown) (no date) (unknown) (unknown) alcohol intake frequency: 0-2 drinks per day (units unknown) (unknown) (unknown) (no date) (unknown) (unknown) alcohol intake: former (units unknown) (unknown) (unknown) (no date) (unknown) (unknown) amlodipine 5 mg tablet 5 mg PO BID 01/16/19 11/13/19 (units unknown) (unknown) (unknown) (no date) (unknown) (unknown) amlodipine 5 mg tablet (units unknown) (unknown) (unknown) (no date) (unknown) (unknown) and below (units unknown) (unknown) (unknown) (no date) (unknown) (unknown) and coronal reformat s were then constructed.? For radiation dose reduction, the (units unknown) (unknown) (unknown) (no date) (unknown) (unknown) appear intact.? (units unknown) (unknown) (unknown) (no date) (unknown) (unknown) appear (units unknown) (unknown) (unknown) (no date) (unknown) (unknown) are normal in size and shape.? (units unknown) (unknown) (unknown) (no date) (unknown) (unknown) aspirin 81 mg chewable tablet 81 mg PO DAILY 01/16/19 11/13/19 (units unknown) (unknown) (unknown) (no date) (unknown) (unknown) aspirin 81 mg tablet,chewable (units unknown) (unknown) (unknown) (no date) (unknown) (unknown) benzonatate 200 mg capsule 200 mg PO TID PRN cough #20 caps 07/10/22 (units unknown) (unknown) (unknown) (no date) (unknown) (unknown) benzonatate 200 mg capsule (units unknown) (unknown) (unknown) (no date) (unknown) (unknown) cervical spine.? Visualized superior ribs are intact.? (units unknown) (unknown) (unknown) (no date) (unknown) (unknown) chlorthalidone 25 mg tablet 12.5 mg PO DAILY 01/16/19 11/13/19 (units unknown) (unknown) (unknown) (no date) (unknown) (unknown) chlorthalidone 25 mg tablet (units unknown) (unknown) (unknown) (no date) (unknown) (unknown) confusion or any new , worsening or concerning symptoms (units unknown) (unknown) (unknown) (no date) (unknown) (unknown) consistent with chronic microvascular ischemic change. Age-related parenchymal (units unknown) (unknown) (unknown) (no date) (unknown) (unknown) eventually made it up. However he was in severe pain throughout the night. (units unknown) (unknown) (unknown) (no date) (unknown) (unknown) following (units unknown) (unknown) (unknown) (no date) (unknown) (unknown) guarding or rebound. (units unknown) (unknown) (unknown) (no date) (unknown) (unknown) he had his hand on the railing when the next thing he knew he would fallen down (units unknown) (unknown) (unknown) (no date) (unknown) (unknown) hematomas.? No apica l pneumothoraces.? (units unknown) (unknown) (unknown) (no date) (unknown) (unknown) hypodensity (units unknown) (unknown) (unknown) (no date) (unknown) (unknown) immediate-release (units unknown) (unknown) (unknown) (no date) (unknown) (unknown) in a large vascular distribution to suggest acute infarction. Periventricular (units unknown) (unknown) (unknown) (no date) (unknown) (unknown) intact (units unknown) (unknown) (unknown) (no date) (unknown) (unknown) lesions.? (units unknown) (unknown) (unknown) (no date) (unknown) (unknown) lightheaded. He is having some cervical pain. No nausea vomiting numbness (units unknown) (unknown) (unknown) (no date) (unknown) (unknown) lisinopril AdvReac Intermediate Verified 07/12/22 11:49 (units unknown) (unknown) (unknown) (no date) (unknown) (unknown) losartan 25 mg table t 50 mg PO DAILY 07/05/20 07/05/20 (units unknown) (unknown) (unknown) (no date) (unknown) (unknown) losartan 25 mg tablet (units unknown) (unknown) (unknown) (no date) (unknown) (unknown) loss. (units unknown) (unknown) (unknown) (no date) (unknown) (unknown) marital status: (units unknown) (unknown) (unknown) (no date) (unknown) (unknown) membranes (units unknown) (unknown) (unknown) (no date) (unknown) (unknown) multivitamin 1 tab P O DAILY 01/16/19 11/13/19 (units unknown) (unknown) (unknown) (no date) (unknown) (unknown) multivitamin Tablet (units unknown) (unknown) (unknown) (no date) (unknown) (unknown) pain. Imaging head cervical spine chest x-ray and shoulder do not show any (units unknown) (unknown) (unknown) (no date) (unknown) (unknown) paravertebral (units unknown) (unknown) (unknown) (no date) (unknown) (unknown) patient (units unknown) (unknown) (unknown) (no date) (unknown) (unknown) prednisone 5 mg tablet 5 mg PO DAILY 01/16/19 11/13/19 (units unknown) (unknown) (unknown) (no date) (unknown) (unknown) prednisone 5 mg tablet (units unknown) (unknown) (unknown) (no date) (unknown) (unknown) primidone AdvReac Intermediate Verified 07/12/22 11:49 (units unknown) (unknown) (unknown) (no date) (unknown) (unknown) ribs (units unknown) (unknown) (unknown) (no date) (unknown) (unknown) secondary to nephrosclerosis, chronic back pain presents today after a fall (units unknown) (unknown) (unknown) (no date) (unknown) (unknown) simvastatin AdvReac Intermediate Verified 07/12/22 11:49 (units unknown) (unknown) (unknown) (no date) (unknown) (unknown) size.? (units unknown) (unknown) (unknown) (no date) (unknown) (unknown) sore for the next couple of days. Increase activity as tolerated strenuous (units unknown) (unknown) (unknown) (no date) (unknown) (unknown) suspicious (units unknown) (unknown) (unknown) (no date) (unknown) (unknown) tacrolimus 1 mg capsule (units unknown) (unknown) (unknown) (no date) (unknown) (unknown) tacrolimus 1 mg capsule, 2 mg PO Q12H 01/16/19 11/13/19 (units unknown) (unknown) (unknown) (no date) (unknown) (unknown) tamsulosin 0.4 mg capsule (Flomax) 0.8 mg PO DAILY 02/26/19 11/13/19 (units unknown) (unknown) (unknown) (no date) (unknown) (unknown) tamsulosin [Flomax] 0.4 mg capsule (units unknown) (unknown) (unknown) (no date) (unknown) (unknown) the (units unknown) (unknown) (unknown) (no date) (unknown) (unknown) tingling or weakness . He does take aspirin daily no fever or chills. (units unknown) (unknown) (unknown) (no date) (unknown) (unknown) to the (units unknown) (unknown) (unknown) (no date) (unknown) (unknown) today 1.6 previously 1.9. (units unknown) (unknown) (unknown) (no date) (unknown) (unknown) today. No evidence o f infection. Creatinine is actually improved from previous (units unknown) (unknown) (unknown) (no date) (unknown) (unknown) tree pollen Allergy Intermediate Uncoded 07/10/22 12:48 (units unknown) (unknown) (unknown) (no date) (unknown) (unknown) unremarkable.? (units unknown) (unknown) (unknown) (no date) (unknown) (unknown) vertex, with coronal and sagittal reformats.? For radiation dose reduction, the (units unknown) (unknown) (unknown) (no date) (unknown) (unknown) was used:? automated exposure control, adjustment of mA and/or kV according to (units unknown) (unknown) (unknown) (no date) (unknown) (unknown) yesterday down stairs. Complaining of right shoulder pain. And some neck (units unknown) (unknown) (unknown) (no date) (unknown) (unknown) yesterday. He report s that he was going down the stairs he was carrying his dog (units unknown) (unknown) (unknown) (no date) (unknown) (unknown) zolpidem [From Ambien] AdvReac Intermediate Verified 07/12/22 11:49 (units unknown) (unknown) Result panel 93 (unknown) (no date) (unknown) (unknown) (no value) (units unknown) (unknown) (unknown) (no date) (unknown) (unknown) *Continue to take medications as directed (units unknown) (unknown) (unknown) (no date) (unknown) (unknown) *Follow up with your primary care provider in 2-3 days or call [phone] (units unknown) (unknown) (unknown) (no date) (unknown) (unknown) *Return to ER if you should have increasing pain numbness tingling weakness (units unknown) (unknown) (unknown) (no date) (unknown) (unknown) *What to do: At this time no injuries blood work is reassuring, expect to be (units unknown) (unknown) (unknown) (no date) (unknown) (unknown) *You have been diagnosed with cervical strain, right shoulder sprain (units unknown) (unknown) (unknown) (no date) (unknown) (unknown) 0.8 mg PO DAILY (units unknown) (unknown) (unknown) (no date) (unknown) (unknown) 07/12/22 07/12/22 Range/Units (units unknown) (unknown) (unknown) (no date) (unknown) (unknown) 07/12/22 11:55 (units unknown) (unknown) (unknown) (no date) (unknown) (unknown) 07/12/22 11:56 (units unknown) (unknown) (unknown) (no date) (unknown) (unknown) 07/12/22 11:58 (units unknown) (unknown) (unknown) (no date) (unknown) (unknown) 07/12/22 12:31 (units unknown) (unknown) (unknown) (no date) (unknown) (unknown) 07/12/22 (units unknown) (unknown) (unknown) (no date) (unknown) (unknown) 1 tab PO DAILY (units unknown) (unknown) (unknown) (no date) (unknown) (unknown) 1 tbsp PO .qday (units unknown) (unknown) (unknown) (no date) (unknown) (unknown) 11:44 (units unknown) (unknown) (unknown) (no date) (unknown) (unknown) 11:55 11:55 (units unknown) (unknown) (unknown) (no date) (unknown) (unknown) 12.5 mg PO DAILY (units unknown) (unknown) (unknown) (no date) (unknown) (unknown) 14:03.? (units unknown) (unknown) (unknown) (no date) (unknown) (unknown) 2 mg PO Q12H (units unknown) (unknown) (unknown) (no date) (unknown) (unknown) 200 mg PO TID PRN (Reason: cough) Qty: 20 0RF (units unknown) (unknown) (unknown) (no date) (unknown) (unknown) [id number] (units unknown) (unknown) (unknown) (no date) (unknown) (unknown) 5 mg PO BID (units unknown) (unknown) (unknown) (no date) (unknown) (unknown) 5 mg PO DAILY (units unknown) (unknown) (unknown) (no date) (unknown) (unknown) 50 mg PO DAILY (units unknown) (unknown) (unknown) (no date) (unknown) (unknown) 81 mg PO DAILY (units unknown) (unknown) (unknown) (no date) (unknown) (unknown) ? (units unknown) (unknown) (unknown) (no date) (unknown) (unknown) ABDOMEN: Soft, nontender. Normoactive bowel sounds all 4 quadrants. No (units unknown) (unknown) (unknown) (no date) (unknown) (unknown) ALT 28 (<50) IU/L (units unknown) (unknown) (unknown) (no date) (unknown) (unknown) AST 20 (17-59) IU/L (units unknown) (unknown) (unknown) (no date) (unknown) (unknown) Acromioclavicular joint separation, type 1 (units unknown) (unknown) (unknown) (no date) (unknown) (unknown) Activity Restrictions/Addition al Instructions: (units unknown) (unknown) (unknown) (no date) (unknown) (unknown) Age/Sex: 81 / M (units unknown) (unknown) (unknown) (no date) (unknown) (unknown) Albumin 4.2 (3.5-5.0 ) g/dL (units unknown) (unknown) (unknown) (no date) (unknown) (unknown) Albumin/Globulin Ratio 1.4 (1.0-2.8) (units unknown) (unknown) (unknown) (no date) (unknown) (unknown) Alkaline Phosphatase 67 (38-126) U/L (units unknown) (unknown) (unknown) (no date) (unknown) (unknown) Allergies (units unknown) (unknown) (unknown) (no date) (unknown) (unknown) Allergy/AdvReac Type Severity Reaction Status Date / Time (units unknown) (unknown) (unknown) (no date) (unknown) (unknown) Approved by: Chapin Harvey M.D. on 07/12/2022 at 13:10 ? (units unknown) (unknown) (unknown) (no date) (unknown) (unknown) BUN 41 H (9-20) mg/dL (units unknown) (unknown) (unknown) (no date) (unknown) (unknown) BUN/Creatinine Ratio 25.5 H (6-22) (units unknown) (unknown) (unknown) (no date) (unknown) (unknown) Baso # (Auto) 100 (0-100) /uL (units unknown) (unknown) (unknown) (no date) (unknown) (unknown) Baso % (Auto) 1.0 (0-2) % (units unknown) (unknown) (unknown) (no date) (unknown) (unknown) Bettes,Jenni, STRUCTURAL MANAGER [Primary Care Provider] (units unknown) (unknown) (unknown) (no date) (unknown) (unknown) Blood Pressure 178/8 3 H 07/12/22 11:44 (units unknown) (unknown) (unknown) (no date) (unknown) (unknown) Blood Pressure 178/8 3 H (units unknown) (unknown) (unknown) (no date) (unknown) (unknown) Bones and chest wall:? No suspicious bony lesions.? Overlying soft tissues (units unknown) (unknown) (unknown) (no date) (unknown) (unknown) Bones:? No fractures or dislocations.? Mild to moderate degenerative change in (units unknown) (unknown) (unknown) (no date) (unknown) (unknown) Bones:? No fractures or dislocations.? No suspicious bony lesions.? Visualized (units unknown) (unknown) (unknown) (no date) (unknown) (unknown) Brain:? No midline shift.? No intracranial masses or hemorrhage.? No area of (units unknown) (unknown) (unknown) (no date) (unknown) (unknown) CARDIOVASCULAR: Regular rate and rhythm without murmurs, rubs or gallops. (units unknown) (unknown) (unknown) (no date) (unknown) (unknown) CK-MB (CK-2) Rel Index TNP (units unknown) (unknown) (unknown) (no date) (unknown) (unknown) CK-MB (CK-2) TNP (units unknown) (unknown) (unknown) (no date) (unknown) (unknown) COMPARISON:? [facility], CR, XR SHOULDER RT MIN 2V, 11/13/2019, 14:12. (units unknown) (unknown) (unknown) (no date) (unknown) (unknown) COMPARISON:? None. (units unknown) (unknown) (unknown) (no date) (unknown) (unknown) COMPARISON:? [facility], CT, CT HEAD WITHOUT CONTRAST, 04/26/2021, (units unknown) (unknown) (unknown) (no date) (unknown) (unknown) CSF spaces:? Basal cisterns are patent.? No extra-axial fluid collections.? (units unknown) (unknown) (unknown) (no date) (unknown) (unknown) CT - cervical spine: (units unknown) (unknown) (unknown) (no date) (unknown) (unknown) CT cervical spine wo con Stat (units unknown) (unknown) (unknown) (no date) (unknown) (unknown) CT head/brain wo con Stat (units unknown) (unknown) (unknown) (no date) (unknown) (unknown) CT scan - head: (units unknown) (unknown) (unknown) (no date) (unknown) (unknown) Calcium 9.0 (8.4-10.2) mg/dL (units unknown) (unknown) (unknown) (no date) (unknown) (unknown) Carbon Dioxide 20 L (22-32) mmol/L (units unknown) (unknown) (unknown) (no date) (unknown) (unknown) Chest [XR chest 1V] Stat (units unknown) (unknown) (unknown) (no date) (unknown) (unknown) Chest x-ray: (units unknown) (unknown) (unknown) (no date) (unknown) (unknown) Chief Complaint: Trauma (units unknown) (unknown) (unknown) (no date) (unknown) (unknown) Chloride 107 (98-107 ) mmol/L (units unknown) (unknown) (unknown) (no date) (unknown) (unknown) Clinical Impression: (units unknown) (unknown) (unknown) (no date) (unknown) (unknown) Complete Blood Count AUTO DIFF Stat (units unknown) (unknown) (unknown) (no date) (unknown) (unknown) Comprehensive Metabolic Panel Stat (units unknown) (unknown) (unknown) (no date) (unknown) (unknown) Course (units unknown) (unknown) (unknown) (no date) (unknown) (unknown) Creatinine 1.61 H (0.66-1.25) mg/dL (units unknown) (unknown) (unknown) (no date) (unknown) (unknown) : 1940 Acct:[id number] (units unknown) (unknown) (unknown) (no date) (unknown) (unknown) Date of Service: 07/12/22 (units unknown) (unknown) (unknown) (no date) (unknown) (unknown) Departure (units unknown) (unknown) (unknown) (no date) (unknown) (unknown) Dictated by: Howard Yadav M.D. on 07/12/2022 at 12:39 ? ? (units unknown) (unknown) (unknown) (no date) (unknown) (unknown) Dictated by: Howard Yadav M.D. on 07/12/2022 at 12:40 ? (units unknown) (unknown) (unknown) (no date) (unknown) (unknown) Dictated by: Chapin Harvey M.D. on 07/12/2022 at 12:59 ? (units unknown) (unknown) (unknown) (no date) (unknown) (unknown) Dictated by: Chapin Harvey M.D. on 07/12/2022 at 13:08 ? ? (units unknown) (unknown) (unknown) (no date) (unknown) (unknown) Discharge Plan (units unknown) (unknown) (unknown) (no date) (unknown) (unknown) ED Orders (units unknown) (unknown) (unknown) (no date) (unknown) (unknown) EKG-12 Lead Stat (units unknown) (unknown) (unknown) (no date) (unknown) (unknown) ER Physician: Selina Flores D.O. (units unknown) (unknown) (unknown) (no date) (unknown) (unknown) EXTREMITIES: Normal range of motion, no clubbing or edema. Neurovascularly (units unknown) (unknown) (unknown) (no date) (unknown) (unknown) Emergency Report (units unknown) (unknown) (unknown) (no date) (unknown) (unknown) Eos # (Auto) 200 (0-450) /uL (units unknown) (unknown) (unknown) (no date) (unknown) (unknown) Eos % (Auto) 2.1 (2-4) % (units unknown) (unknown) (unknown) (no date) (unknown) (unknown) Estimated GFR 43 L (>60) mL/min (units unknown) (unknown) (unknown) (no date) (unknown) (unknown) Exam (units unknown) (unknown) (unknown) (no date) (unknown) (unknown) Extremity x-ray #1: (units unknown) (unknown) (unknown) (no date) (unknown) (unknown) FINDINGS:? (units unknown) (unknown) (unknown) (no date) (unknown) (unknown) Facet arthropathy, lumbar (units unknown) (unknown) (unknown) (no date) (unknown) (unknown) Family History (units unknown) (unknown) (unknown) (no date) (unknown) (unknown) Father Stroke (units unknown) (unknown) (unknown) (no date) (unknown) (unknown) Fresh garlic 1 tbsp PO .qday 06/18/18 11/13/19 (units unknown) (unknown) (unknown) (no date) (unknown) (unknown) Fresh garlic (units unknown) (unknown) (unknown) (no date) (unknown) (unknown) GENERAL: Alert pleasant well-appearing 81-year-old male (units unknown) (unknown) (unknown) (no date) (unknown) (unknown) General (units unknown) (unknown) (unknown) (no date) (unknown) (unknown) Globulin 3.1 (1.7-4.1) g/dL (units unknown) (unknown) (unknown) (no date) (unknown) (unknown) Glucose 126 H (80-110) mg/dL (units unknown) (unknown) (unknown) (no date) (unknown) (unknown) HEENT: Head atraumatic,EOMI, pupils reactive, face symmetric, moist mucous (units unknown) (unknown) (unknown) (no date) (unknown) (unknown) HPI - Fall (units unknown) (unknown) (unknown) (no date) (unknown) (unknown) HPI Narrative: (units unknown) (unknown) (unknown) (no date) (unknown) (unknown) Hct 46.5 (41-53) % (units unknown) (unknown) (unknown) (no date) (unknown) (unknown) Hgb 15.5 (13.5-17.5) g/dL (units unknown) (unknown) (unknown) (no date) (unknown) (unknown) History of Present Illness (units unknown) (unknown) (unknown) (no date) (unknown) (unknown) Home Medications (units unknown) (unknown) (unknown) (no date) (unknown) (unknown) IMPRESSION:? No acut e bony abnormality.? (units unknown) (unknown) (unknown) (no date) (unknown) (unknown) IMPRESSION:? No displaced fracture or pneumothorax. (units unknown) (unknown) (unknown) (no date) (unknown) (unknown) IMPRESSION:? (units unknown) (unknown) (unknown) (no date) (unknown) (unknown) INDICATIONS:? fall (units unknown) (unknown) (unknown) (no date) (unknown) (unknown) Image quality:? Excellent.? (units unknown) (unknown) (unknown) (no date) (unknown) (unknown) Imaging Data (units unknown) (unknown) (unknown) (no date) (unknown) (unknown) Initial Vital Signs (units unknown) (unknown) (unknown) (no date) (unknown) (unknown) Initial Vital Signs: (units unknown) (unknown) (unknown) (no date) (unknown) (unknown) Instructions: [place], DI for Shoulder Sprain (units unknown) (unknown) (unknown) (no date) (unknown) (unknown) [address] [address] (units unknown) (unknown) (unknown) (no date) (unknown) (unknown) [facility], CT, CT HEAD/BRAIN WO CON, 04/23/2019, 11:10. (units unknown) (unknown) (unknown) (no date) (unknown) (unknown) Lab Data (units unknown) (unknown) (unknown) (no date) (unknown) (unknown) Lab Results (units unknown) (unknown) (unknown) (no date) (unknown) (unknown) Labs: (units unknown) (unknown) (unknown) (no date) (unknown) (unknown) Lipase 102 (23-300) U/L (units unknown) (unknown) (unknown) (no date) (unknown) (unknown) Lipase Stat (units unknown) (unknown) (unknown) (no date) (unknown) (unknown) Lungs and pleura:? Lungs are clear.? No pleural effusions or pneumothorax.? (units unknown) (unknown) (unknown) (no date) (unknown) (unknown) Lymph # (Auto) 2100 (6570-4695) /uL (units unknown) (unknown) (unknown) (no date) (unknown) (unknown) Lymph % (Auto) 21.3 L (25-40) % (units unknown) (unknown) (unknown) (no date) (unknown) (unknown) MCH 29.2 (26-34) PG (units unknown) (unknown) (unknown) (no date) (unknown) (unknown) MCHC 33.3 (30-36) % (units unknown) (unknown) (unknown) (no date) (unknown) (unknown) MCV 87.7 (80-100) fL (units unknown) (unknown) (unknown) (no date) (unknown) (unknown) MDM - Fall (units unknown) (unknown) (unknown) (no date) (unknown) (unknown) MDM Narrative (units unknown) (unknown) (unknown) (no date) (unknown) (unknown) Mediastinum:? Mediastinal contours appear normal.? Heart size is enlarged.? (units unknown) (unknown) (unknown) (no date) (unknown) (unknown) Medical History (units unknown) (unknown) (unknown) (no date) (unknown) (unknown) Medical decision making narrative: (units unknown) (unknown) (unknown) (no date) (unknown) (unknown) Medication Instructions Recorded Confirmed (units unknown) (unknown) (unknown) (no date) (unknown) (unknown) Medication Instructions Recorded (units unknown) (unknown) (unknown) (no date) (unknown) (unknown) Mode of arrival: Ambulatory (units unknown) (unknown) (unknown) (no date) (unknown) (unknown) [place] # (Auto) 700 (0-900) /uL (units unknown) (unknown) (unknown) (no date) (unknown) (unknown) [place] % (Auto) 6.9 (3-14) % (units unknown) (unknown) (unknown) (no date) (unknown) (unknown) Mother Hear t disease (units unknown) (unknown) (unknown) (no date) (unknown) (unknown) NECK: Cervical colla r in voice mild vertebral tenderness (units unknown) (unknown) (unknown) (no date) (unknown) (unknown) NEUROLOGICAL: Alert and oriented x4 coremaker floor strength equal bilaterally (units unknown) (unknown) (unknown) (no date) (unknown) (unknown) Neut # (Auto) 6700 (6441-5893) /uL (units unknown) (unknown) (unknown) (no date) (unknown) (unknown) Neut % (Auto) 68.7 (50-75) % (units unknown) (unknown) (unknown) (no date) (unknown) (unknown) No Action (units unknown) (unknown) (unknown) (no date) (unknown) (unknown) No acute intracrania l abnormality. (units unknown) (unknown) (unknown) (no date) (unknown) (unknown) No acute osseous abnormality. (units unknown) (unknown) (unknown) (no date) (unknown) (unknown) Noncontrast 3 mm thick sections acquired from the skull base to the T4 level.? (units unknown) (unknown) (unknown) (no date) (unknown) (unknown) Noncontrast 4.5 mm thick angled axial sections acquired from the foramen magnum (units unknown) (unknown) (unknown) (no date) (unknown) (unknown) Ordered: (units unknown) (unknown) (unknown) (no date) (unknown) (unknown) Orders (units unknown) (unknown) (unknown) (no date) (unknown) (unknown) Other intervertebral disc displacement, lumbosacral region (units unknown) (unknown) (unknown) (no date) (unknown) (unknown) Oxygen Delivery Method Room Air 07/12/22 11:44 (units unknown) (unknown) (unknown) (no date) (unknown) (unknown) Oxygen Delivery Method Room Air (units unknown) (unknown) (unknown) (no date) (unknown) (unknown) PROCEDURE:? CT CERVICAL SPINE WO CON (units unknown) (unknown) (unknown) (no date) (unknown) (unknown) PROCEDURE:? CT HEAD/BRAIN WO CON (units unknown) (unknown) (unknown) (no date) (unknown) (unknown) PROCEDURE:? XR CHEST 1V (units unknown) (unknown) (unknown) (no date) (unknown) (unknown) PROCEDURE:? XR SHOULDER RT MIN 2V (units unknown) (unknown) (unknown) (no date) (unknown) (unknown) Patient 81-year-old male who presents after what like a possible mechanical fall (units unknown) (unknown) (unknown) (no date) (unknown) (unknown) Patient Disposition: Home (units unknown) (unknown) (unknown) (no date) (unknown) (unknown) Patient History (units unknown) (unknown) (unknown) (no date) (unknown) (unknown) Patient is a 81-year-old male history of hypertension, renal transplant (units unknown) (unknown) (unknown) (no date) (unknown) (unknown) Patient: Fran Muhammad MR#: [id number] (units unknown) (unknown) (unknown) (no date) (unknown) (unknown) Plt Count 213 (150-400) X103/uL (units unknown) (unknown) (unknown) (no date) (unknown) (unknown) Potassium 4.0 (3.4-5.1) mmol/L (units unknown) (unknown) (unknown) (no date) (unknown) (unknown) Prescriptions: (units unknown) (unknown) (unknown) (no date) (unknown) (unknown) Previous Rx's (units unknown) (unknown) (unknown) (no date) (unknown) (unknown) Pulse Oximetry 94 07/12/22 11:44 (units unknown) (unknown) (unknown) (no date) (unknown) (unknown) Pulse Oximetry 94 (units unknown) (unknown) (unknown) (no date) (unknown) (unknown) Pulse Rate 70 07/12/22 11:44 (units unknown) (unknown) (unknown) (no date) (unknown) (unknown) Pulse Rate 70 (units unknown) (unknown) (unknown) (no date) (unknown) (unknown) RBC 5.30 (4.5-5.9) X106/uL (units unknown) (unknown) (unknown) (no date) (unknown) (unknown) RDW 13.7 (11.6-14.8) % (units unknown) (unknown) (unknown) (no date) (unknown) (unknown) RESPIRATORY: Breath sounds equal bilaterally, no wheezes rales or rhonchi. (units unknown) (unknown) (unknown) (no date) (unknown) (unknown) ROS Unobtainable: Al l systems reviewed + are unremarkable except as noted in HPI (units unknown) (unknown) (unknown) (no date) (unknown) (unknown) Radiologist's Impression: (units unknown) (unknown) (unknown) (no date) (unknown) (unknown) Really complaining o f some right shoulder pain. Now he feels dizzy and (units unknown) (unknown) (unknown) (no date) (unknown) (unknown) Referrals: (units unknown) (unknown) (unknown) (no date) (unknown) (unknown) Related Data (units unknown) (unknown) (unknown) (no date) (unknown) (unknown) Respiratory Rate 14 07/12/22 11:44 (units unknown) (unknown) (unknown) (no date) (unknown) (unknown) Respiratory Rate 14 (units unknown) (unknown) (unknown) (no date) (unknown) (unknown) Review of Systems (units unknown) (unknown) (unknown) (no date) (unknown) (unknown) Right shoulder decreased abduction no clavicle step-off no gross shoulder (units unknown) (unknown) (unknown) (no date) (unknown) (unknown) Right shoulder injury (units unknown) (unknown) (unknown) (no date) (unknown) (unknown) SKIN: Warm, dry, no laceration, no petechiae, no rashes or lesions. (units unknown) (unknown) (unknown) (no date) (unknown) (unknown) Sagittal (units unknown) (unknown) (unknown) (no date) (unknown) (unknown) Signed By: (units unknown) (unknown) (unknown) (no date) (unknown) (unknown) Sinuses:? Visualized sinuses and mastoids are clear.? (units unknown) (unknown) (unknown) (no date) (unknown) (unknown) Skull and face:? Calvarium and visualized facial bones are intact, without (units unknown) (unknown) (unknown) (no date) (unknown) (unknown) Smoking Status: Sladee r smoker (units unknown) (unknown) (unknown) (no date) (unknown) (unknown) Social History (units unknown) (unknown) (unknown) (no date) (unknown) (unknown) Sodium 136 L (137-145) mmol/L (units unknown) (unknown) (unknown) (no date) (unknown) (unknown) Soft tissues:? No suspicious soft tissue calcifications.? (units unknown) (unknown) (unknown) (no date) (unknown) (unknown) Soft tissues:? Prevertebral soft tissues are normal in thickness.? No (units unknown) (unknown) (unknown) (no date) (unknown) (unknown) Source: patient (units unknown) (unknown) (unknown) (no date) (unknown) (unknown) Sprain of shoulder, right, Cervical sprain (units unknown) (unknown) (unknown) (no date) (unknown) (unknown) Stand Alone Forms: Patient Portal/API (units unknown) (unknown) (unknown) (no date) (unknown) (unknown) Stated Complaint: Fall, Dizzy, cant turn head, R shoulder/abd (units unknown) (unknown) (unknown) (no date) (unknown) (unknown) Substance Use Type: does not use (units unknown) (unknown) (unknown) (no date) (unknown) (unknown) Surgical changes and devices:? None.? (units unknown) (unknown) (unknown) (no date) (unknown) (unknown) TECHNIQUE:? 2 views of the shoulder were acquired.? (units unknown) (unknown) (unknown) (no date) (unknown) (unknown) TECHNIQUE:? One view of the chest was acquired.? (units unknown) (unknown) (unknown) (no date) (unknown) (unknown) TECHNIQUE:? (units unknown) (unknown) (unknown) (no date) (unknown) (unknown) Temperature 98.1 F 07/12/22 11:44 (units unknown) (unknown) (unknown) (no date) (unknown) (unknown) Temperature 98.1 F (units unknown) (unknown) (unknown) (no date) (unknown) (unknown) Time Seen by Provider: 07/12/22 11:55 (units unknown) (unknown) (unknown) (no date) (unknown) (unknown) Total Bilirubin 0.8 (0.2-1.3) mg/dL (units unknown) (unknown) (unknown) (no date) (unknown) (unknown) Total Creatine Kinas e 37 L (55-170) U/L (units unknown) (unknown) (unknown) (no date) (unknown) (unknown) Total Protein 7.3 (6.3-8.2) g/dL (units unknown) (unknown) (unknown) (no date) (unknown) (unknown) Troponin + CK Cardia c Panel Stat (units unknown) (unknown) (unknown) (no date) (unknown) (unknown) Troponin I < 0.012 (0.01-0.034) ng/mL (units unknown) (unknown) (unknown) (no date) (unknown) (unknown) Tylenol as needed fo r pain (units unknown) (unknown) (unknown) (no date) (unknown) (unknown) Ventricles (units unknown) (unknown) (unknown) (no date) (unknown) (unknown) Vital Signs - 8 hr (units unknown) (unknown) (unknown) (no date) (unknown) (unknown) Vital Signs (units unknown) (unknown) (unknown) (no date) (unknown) (unknown) Vital signs: (units unknown) (unknown) (unknown) (no date) (unknown) (unknown) WBC 9.7 (4.5-11.0) X103/uL (units unknown) (unknown) (unknown) (no date) (unknown) (unknown) XR shoulder RT min 2 V Stat (units unknown) (unknown) (unknown) (no date) (unknown) (unknown) [Embedded Image Not Available] (units unknown) (unknown) (unknown) (no date) (unknown) (unknown) abnormality distal radial pulse intact (units unknown) (unknown) (unknown) (no date) (unknown) (unknown) abnormality. Blood work is overall reassuring. No need for any further workup (units unknown) (unknown) (unknown) (no date) (unknown) (unknown) about 5 stairs to th e bottom of the staircase. tried to help get him up he (units unknown) (unknown) (unknown) (no date) (unknown) (unknown) activity not recommended some movement will help (units unknown) (unknown) (unknown) (no date) (unknown) (unknown) alcohol intake frequency: 0-2 drinks per day (units unknown) (unknown) (unknown) (no date) (unknown) (unknown) alcohol intake: former (units unknown) (unknown) (unknown) (no date) (unknown) (unknown) amlodipine 5 mg tablet 5 mg PO BID 01/16/19 11/13/19 (units unknown) (unknown) (unknown) (no date) (unknown) (unknown) amlodipine 5 mg tablet (units unknown) (unknown) (unknown) (no date) (unknown) (unknown) and below (units unknown) (unknown) (unknown) (no date) (unknown) (unknown) and coronal reformat s were then constructed.? For radiation dose reduction, the (units unknown) (unknown) (unknown) (no date) (unknown) (unknown) appear intact.? (units unknown) (unknown) (unknown) (no date) (unknown) (unknown) appear (units unknown) (unknown) (unknown) (no date) (unknown) (unknown) are normal in size and shape.? (units unknown) (unknown) (unknown) (no date) (unknown) (unknown) aspirin 81 mg chewable tablet 81 mg PO DAILY 01/16/19 11/13/19 (units unknown) (unknown) (unknown) (no date) (unknown) (unknown) aspirin 81 mg tablet,chewable (units unknown) (unknown) (unknown) (no date) (unknown) (unknown) benzonatate 200 mg capsule 200 mg PO TID PRN cough #20 caps 07/10/22 (units unknown) (unknown) (unknown) (no date) (unknown) (unknown) benzonatate 200 mg capsule (units unknown) (unknown) (unknown) (no date) (unknown) (unknown) cervical spine.? Visualized superior ribs are intact.? (units unknown) (unknown) (unknown) (no date) (unknown) (unknown) chlorthalidone 25 mg tablet 12.5 mg PO DAILY 01/16/19 11/13/19 (units unknown) (unknown) (unknown) (no date) (unknown) (unknown) chlorthalidone 25 mg tablet (units unknown) (unknown) (unknown) (no date) (unknown) (unknown) confusion or any new , worsening or concerning symptoms (units unknown) (unknown) (unknown) (no date) (unknown) (unknown) consistent with chronic microvascular ischemic change. Age-related parenchymal (units unknown) (unknown) (unknown) (no date) (unknown) (unknown) eventually made it up. However he was in severe pain throughout the night. (units unknown) (unknown) (unknown) (no date) (unknown) (unknown) following (units unknown) (unknown) (unknown) (no date) (unknown) (unknown) guarding or rebound. (units unknown) (unknown) (unknown) (no date) (unknown) (unknown) he had his hand on the railing when the next thing he knew he would fallen down (units unknown) (unknown) (unknown) (no date) (unknown) (unknown) hematomas.? No apica l pneumothoraces.? (units unknown) (unknown) (unknown) (no date) (unknown) (unknown) hypodensity (units unknown) (unknown) (unknown) (no date) (unknown) (unknown) immediate-release (units unknown) (unknown) (unknown) (no date) (unknown) (unknown) in a large vascular distribution to suggest acute infarction. Periventricular (units unknown) (unknown) (unknown) (no date) (unknown) (unknown) intact (units unknown) (unknown) (unknown) (no date) (unknown) (unknown) lesions.? (units unknown) (unknown) (unknown) (no date) (unknown) (unknown) lightheaded. He is having some cervical pain. No nausea vomiting numbness (units unknown) (unknown) (unknown) (no date) (unknown) (unknown) lisinopril AdvReac Intermediate Verified 07/12/22 11:49 (units unknown) (unknown) (unknown) (no date) (unknown) (unknown) losartan 25 mg table t 50 mg PO DAILY 07/05/20 07/05/20 (units unknown) (unknown) (unknown) (no date) (unknown) (unknown) losartan 25 mg tablet (units unknown) (unknown) (unknown) (no date) (unknown) (unknown) loss. (units unknown) (unknown) (unknown) (no date) (unknown) (unknown) marital status: (units unknown) (unknown) (unknown) (no date) (unknown) (unknown) membranes (units unknown) (unknown) (unknown) (no date) (unknown) (unknown) multivitamin 1 tab P O DAILY 01/16/19 11/13/19 (units unknown) (unknown) (unknown) (no date) (unknown) (unknown) multivitamin Tablet (units unknown) (unknown) (unknown) (no date) (unknown) (unknown) pain. Imaging head cervical spine chest x-ray and shoulder do not show any (units unknown) (unknown) (unknown) (no date) (unknown) (unknown) paravertebral (units unknown) (unknown) (unknown) (no date) (unknown) (unknown) patient (units unknown) (unknown) (unknown) (no date) (unknown) (unknown) prednisone 5 mg tablet 5 mg PO DAILY 01/16/19 11/13/19 (units unknown) (unknown) (unknown) (no date) (unknown) (unknown) prednisone 5 mg tablet (units unknown) (unknown) (unknown) (no date) (unknown) (unknown) primidone AdvReac Intermediate Verified 07/12/22 11:49 (units unknown) (unknown) (unknown) (no date) (unknown) (unknown) ribs (units unknown) (unknown) (unknown) (no date) (unknown) (unknown) secondary to nephrosclerosis, chronic back pain presents today after a fall (units unknown) (unknown) (unknown) (no date) (unknown) (unknown) simvastatin AdvReac Intermediate Verified 07/12/22 11:49 (units unknown) (unknown) (unknown) (no date) (unknown) (unknown) size.? (units unknown) (unknown) (unknown) (no date) (unknown) (unknown) sore for the next couple of days. Increase activity as tolerated strenuous (units unknown) (unknown) (unknown) (no date) (unknown) (unknown) suspicious (units unknown) (unknown) (unknown) (no date) (unknown) (unknown) tacrolimus 1 mg capsule (units unknown) (unknown) (unknown) (no date) (unknown) (unknown) tacrolimus 1 mg capsule, 2 mg PO Q12H 01/16/19 11/13/19 (units unknown) (unknown) (unknown) (no date) (unknown) (unknown) tamsulosin 0.4 mg capsule (Flomax) 0.8 mg PO DAILY 02/26/19 11/13/19 (units unknown) (unknown) (unknown) (no date) (unknown) (unknown) tamsulosin [Flomax] 0.4 mg capsule (units unknown) (unknown) (unknown) (no date) (unknown) (unknown) the (units unknown) (unknown) (unknown) (no date) (unknown) (unknown) tingling or weakness . He does take aspirin daily no fever or chills. (units unknown) (unknown) (unknown) (no date) (unknown) (unknown) to the (units unknown) (unknown) (unknown) (no date) (unknown) (unknown) today 1.6 previously 1.9. (units unknown) (unknown) (unknown) (no date) (unknown) (unknown) today. No evidence o f infection. Creatinine is actually improved from previous (units unknown) (unknown) (unknown) (no date) (unknown) (unknown) tree pollen Allergy Intermediate Uncoded 07/10/22 12:48 (units unknown) (unknown) (unknown) (no date) (unknown) (unknown) unremarkable.? (units unknown) (unknown) (unknown) (no date) (unknown) (unknown) vertex, with coronal and sagittal reformats.? For radiation dose reduction, the (units unknown) (unknown) (unknown) (no date) (unknown) (unknown) was used:? automated exposure control, adjustment of mA and/or kV according to (units unknown) (unknown) (unknown) (no date) (unknown) (unknown) yesterday down stairs. Complaining of right shoulder pain. And some neck (units unknown) (unknown) (unknown) (no date) (unknown) (unknown) yesterday. He report s that he was going down the stairs he was carrying his dog (units unknown) (unknown) (unknown) (no date) (unknown) (unknown) zolpidem [From Ambien] AdvReac Intermediate Verified 07/12/22 11:49 (units unknown) (unknown) Result panel 94 (unknown) (no date) (unknown) (unknown) (no value) (units unknown) (unknown) (unknown) (no date) (unknown) (unknown) <Electronically signed by Selina Flores D.O.> (units unknown) (unknown) (unknown) (no date) (unknown) (unknown) *Continue to take medications as directed (units unknown) (unknown) (unknown) (no date) (unknown) (unknown) *Follow up with your primary care provider in 2-3 days or call [phone] (units unknown) (unknown) (unknown) (no date) (unknown) (unknown) *Return to ER if you should have increasing pain numbness tingling weakness (units unknown) (unknown) (unknown) (no date) (unknown) (unknown) *What to do: At this time no injuries blood work is reassuring, expect to be (units unknown) (unknown) (unknown) (no date) (unknown) (unknown) *You have been diagnosed with cervical strain, right shoulder sprain (units unknown) (unknown) (unknown) (no date) (unknown) (unknown) 0.8 mg PO DAILY (units unknown) (unknown) (unknown) (no date) (unknown) (unknown) 07/12/22 07/12/22 Range/Units (units unknown) (unknown) (unknown) (no date) (unknown) (unknown) 07/12/22 11:55 (units unknown) (unknown) (unknown) (no date) (unknown) (unknown) 07/12/22 11:56 (units unknown) (unknown) (unknown) (no date) (unknown) (unknown) 07/12/22 11:58 (units unknown) (unknown) (unknown) (no date) (unknown) (unknown) 07/12/22 12:31 (units unknown) (unknown) (unknown) (no date) (unknown) (unknown) 07/12/22 1856 (units unknown) (unknown) (unknown) (no date) (unknown) (unknown) 07/12/22 (units unknown) (unknown) (unknown) (no date) (unknown) (unknown) 1 tab PO DAILY (units unknown) (unknown) (unknown) (no date) (unknown) (unknown) 1 tbsp PO .qday (units unknown) (unknown) (unknown) (no date) (unknown) (unknown) 11:44 07/12/22 (units unknown) (unknown) (unknown) (no date) (unknown) (unknown) 11:55 11:55 (units unknown) (unknown) (unknown) (no date) (unknown) (unknown) 11:56 07/12/22 (units unknown) (unknown) (unknown) (no date) (unknown) (unknown) 11:58 07/12/22 (units unknown) (unknown) (unknown) (no date) (unknown) (unknown) 11:58 (units unknown) (unknown) (unknown) (no date) (unknown) (unknown) 12.5 mg PO DAILY (units unknown) (unknown) (unknown) (no date) (unknown) (unknown) 12:00 07/12/22 (units unknown) (unknown) (unknown) (no date) (unknown) (unknown) 12:00 (units unknown) (unknown) (unknown) (no date) (unknown) (unknown) 12:10 06/06/23 (units unknown) (unknown) (unknown) (no date) (unknown) (unknown) 12:20 07/12/22 (units unknown) (unknown) (unknown) (no date) (unknown) (unknown) 12:20 (units unknown) (unknown) (unknown) (no date) (unknown) (unknown) 12:37 07/12/22 (units unknown) (unknown) (unknown) (no date) (unknown) (unknown) 12:38 07/12/22 (units unknown) (unknown) (unknown) (no date) (unknown) (unknown) 12:38 (units unknown) (unknown) (unknown) (no date) (unknown) (unknown) 12:40 07/12/22 (units unknown) (unknown) (unknown) (no date) (unknown) (unknown) 12:40 (units unknown) (unknown) (unknown) (no date) (unknown) (unknown) 12:50 07/12/22 (units unknown) (unknown) (unknown) (no date) (unknown) (unknown) 13:00 07/12/22 (units unknown) (unknown) (unknown) (no date) (unknown) (unknown) 13:00 (units unknown) (unknown) (unknown) (no date) (unknown) (unknown) 13:10 07/12/22 (units unknown) (unknown) (unknown) (no date) (unknown) (unknown) 13:10 (units unknown) (unknown) (unknown) (no date) (unknown) (unknown) 13:20 07/12/22 (units unknown) (unknown) (unknown) (no date) (unknown) (unknown) 13:30 07/12/22 (units unknown) (unknown) (unknown) (no date) (unknown) (unknown) 13:30 (units unknown) (unknown) (unknown) (no date) (unknown) (unknown) 13:40 07/12/22 (units unknown) (unknown) (unknown) (no date) (unknown) (unknown) 13:40 (units unknown) (unknown) (unknown) (no date) (unknown) (unknown) 14:03.? (units unknown) (unknown) (unknown) (no date) (unknown) (unknown) 2 mg PO Q12H (units unknown) (unknown) (unknown) (no date) (unknown) (unknown) 200 mg PO TID PRN (Reason: cough) Qty: 20 0RF (units unknown) (unknown) (unknown) (no date) (unknown) (unknown) [id number] (units unknown) (unknown) (unknown) (no date) (unknown) (unknown) 5 mg PO BID (units unknown) (unknown) (unknown) (no date) (unknown) (unknown) 5 mg PO DAILY (units unknown) (unknown) (unknown) (no date) (unknown) (unknown) 50 mg PO DAILY (units unknown) (unknown) (unknown) (no date) (unknown) (unknown) 81 mg PO DAILY (units unknown) (unknown) (unknown) (no date) (unknown) (unknown) ? (units unknown) (unknown) (unknown) (no date) (unknown) (unknown) ABDOMEN: Soft, nontender. Normoactive bowel sounds all 4 quadrants. No (units unknown) (unknown) (unknown) (no date) (unknown) (unknown) ALT 28 (<50) IU/L (units unknown) (unknown) (unknown) (no date) (unknown) (unknown) AST 20 (17-59) IU/L (units unknown) (unknown) (unknown) (no date) (unknown) (unknown) Acromioclavicular joint separation, type 1 (units unknown) (unknown) (unknown) (no date) (unknown) (unknown) Activity Restrictions/Addition al Instructions: (units unknown) (unknown) (unknown) (no date) (unknown) (unknown) Age/Sex: 81 / M (units unknown) (unknown) (unknown) (no date) (unknown) (unknown) Albumin 4.2 (3.5-5.0 ) g/dL (units unknown) (unknown) (unknown) (no date) (unknown) (unknown) Albumin/Globulin Ratio 1.4 (1.0-2.8) (units unknown) (unknown) (unknown) (no date) (unknown) (unknown) Alkaline Phosphatase 67 (38-126) U/L (units unknown) (unknown) (unknown) (no date) (unknown) (unknown) Allergies (units unknown) (unknown) (unknown) (no date) (unknown) (unknown) Allergy/AdvReac Type Severity Reaction Status Date / Time (units unknown) (unknown) (unknown) (no date) (unknown) (unknown) Approved by: Chapin Harvey M.D. on 07/12/2022 at 13:10 ? (units unknown) (unknown) (unknown) (no date) (unknown) (unknown) BUN 41 H (9-20) mg/dL (units unknown) (unknown) (unknown) (no date) (unknown) (unknown) BUN/Creatinine Ratio 25.5 H (6-22) (units unknown) (unknown) (unknown) (no date) (unknown) (unknown) Baso # (Auto) 100 (0-100) /uL (units unknown) (unknown) (unknown) (no date) (unknown) (unknown) Baso % (Auto) 1.0 (0-2) % (units unknown) (unknown) (unknown) (no date) (unknown) (unknown) Bettes,Jenni, STRUCTURAL MANAGER [Primary Care Provider] (units unknown) (unknown) (unknown) (no date) (unknown) (unknown) Blood Pressure 152/8 7 H 162/94 H (units unknown) (unknown) (unknown) (no date) (unknown) (unknown) Blood Pressure 164/9 4 H 162/98 H (units unknown) (unknown) (unknown) (no date) (unknown) (unknown) Blood Pressure 164/9 4 H (units unknown) (unknown) (unknown) (no date) (unknown) (unknown) Blood Pressure 167/103 H (units unknown) (unknown) (unknown) (no date) (unknown) (unknown) Blood Pressure 167/9 5 H 165/100 H (units unknown) (unknown) (unknown) (no date) (unknown) (unknown) Blood Pressure 178/8 3 H 07/12/22 11:44 (units unknown) (unknown) (unknown) (no date) (unknown) (unknown) Blood Pressure 178/8 3 H (units unknown) (unknown) (unknown) (no date) (unknown) (unknown) Blood Pressure 188/103 H 174/90 H (units unknown) (unknown) (unknown) (no date) (unknown) (unknown) Blood Pressure 196/101 H 166/95 H (units unknown) (unknown) (unknown) (no date) (unknown) (unknown) Blood Pressure (units unknown) (unknown) (unknown) (no date) (unknown) (unknown) Bones and chest wall:? No suspicious bony lesions.? Overlying soft tissues (units unknown) (unknown) (unknown) (no date) (unknown) (unknown) Bones:? No fractures or dislocations.? Mild to moderate degenerative change in (units unknown) (unknown) (unknown) (no date) (unknown) (unknown) Bones:? No fractures or dislocations.? No suspicious bony lesions.? Visualized (units unknown) (unknown) (unknown) (no date) (unknown) (unknown) Brain:? No midline shift.? No intracranial masses or hemorrhage.? No area of (units unknown) (unknown) (unknown) (no date) (unknown) (unknown) CARDIOVASCULAR: Regular rate and rhythm without murmurs, rubs or gallops. (units unknown) (unknown) (unknown) (no date) (unknown) (unknown) CK-MB (CK-2) Rel Index TNP (units unknown) (unknown) (unknown) (no date) (unknown) (unknown) CK-MB (CK-2) TNP (units unknown) (unknown) (unknown) (no date) (unknown) (unknown) COMPARISON:? [facility], CR, XR SHOULDER RT MIN 2V, 11/13/2019, 14:12. (units unknown) (unknown) (unknown) (no date) (unknown) (unknown) COMPARISON:? None. (units unknown) (unknown) (unknown) (no date) (unknown) (unknown) COMPARISON:? [facility], CT, CT HEAD WITHOUT CONTRAST, 04/26/2021, (units unknown) (unknown) (unknown) (no date) (unknown) (unknown) CSF spaces:? Basal cisterns are patent.? No extra-axial fluid collections.? (units unknown) (unknown) (unknown) (no date) (unknown) (unknown) CT - cervical spine: (units unknown) (unknown) (unknown) (no date) (unknown) (unknown) CT cervical spine wo con Stat (units unknown) (unknown) (unknown) (no date) (unknown) (unknown) CT head/brain wo con Stat (units unknown) (unknown) (unknown) (no date) (unknown) (unknown) CT scan - head: (units unknown) (unknown) (unknown) (no date) (unknown) (unknown) Calcium 9.0 (8.4-10.2) mg/dL (units unknown) (unknown) (unknown) (no date) (unknown) (unknown) Carbon Dioxide 20 L (22-32) mmol/L (units unknown) (unknown) (unknown) (no date) (unknown) (unknown) Chest [XR chest 1V] Stat (units unknown) (unknown) (unknown) (no date) (unknown) (unknown) Chest x-ray: (units unknown) (unknown) (unknown) (no date) (unknown) (unknown) Chief Complaint: Trauma (units unknown) (unknown) (unknown) (no date) (unknown) (unknown) Chloride 107 (98-107 ) mmol/L (units unknown) (unknown) (unknown) (no date) (unknown) (unknown) Clinical Impression: (units unknown) (unknown) (unknown) (no date) (unknown) (unknown) Complete Blood Count AUTO DIFF Stat (units unknown) (unknown) (unknown) (no date) (unknown) (unknown) Comprehensive Metabolic Panel Stat (units unknown) (unknown) (unknown) (no date) (unknown) (unknown) Course (units unknown) (unknown) (unknown) (no date) (unknown) (unknown) Creatinine 1.61 H (0.66-1.25) mg/dL (units unknown) (unknown) (unknown) (no date) (unknown) (unknown) : 1940 Acct:[id number] (units unknown) (unknown) (unknown) (no date) (unknown) (unknown) Date of Service: 07/12/22 (units unknown) (unknown) (unknown) (no date) (unknown) (unknown) Departure (units unknown) (unknown) (unknown) (no date) (unknown) (unknown) Dictated by: Howard Yadav M.D. on 07/12/2022 at 12:39 ? ? (units unknown) (unknown) (unknown) (no date) (unknown) (unknown) Dictated by: Howard Yadav M.D. on 07/12/2022 at 12:40 ? (units unknown) (unknown) (unknown) (no date) (unknown) (unknown) Dictated by: Chapin Harvey M.D. on 07/12/2022 at 12:59 ? (units unknown) (unknown) (unknown) (no date) (unknown) (unknown) Dictated by: Chapin Harvey M.D. on 07/12/2022 at 13:08 ? ? (units unknown) (unknown) (unknown) (no date) (unknown) (unknown) Discharge Plan (units unknown) (unknown) (unknown) (no date) (unknown) (unknown) ED Orders (units unknown) (unknown) (unknown) (no date) (unknown) (unknown) EKG-12 Lead Stat (units unknown) (unknown) (unknown) (no date) (unknown) (unknown) ER Physician: Selina Flores D.O. (units unknown) (unknown) (unknown) (no date) (unknown) (unknown) EXTREMITIES: Normal range of motion, no clubbing or edema. Neurovascularly (units unknown) (unknown) (unknown) (no date) (unknown) (unknown) Emergency Report (units unknown) (unknown) (unknown) (no date) (unknown) (unknown) Eos # (Auto) 200 (0-450) /uL (units unknown) (unknown) (unknown) (no date) (unknown) (unknown) Eos % (Auto) 2.1 (2-4) % (units unknown) (unknown) (unknown) (no date) (unknown) (unknown) Estimated GFR 43 L (>60) mL/min (units unknown) (unknown) (unknown) (no date) (unknown) (unknown) Exam (units unknown) (unknown) (unknown) (no date) (unknown) (unknown) Extremity x-ray #1: (units unknown) (unknown) (unknown) (no date) (unknown) (unknown) FINDINGS:? (units unknown) (unknown) (unknown) (no date) (unknown) (unknown) Facet arthropathy, lumbar (units unknown) (unknown) (unknown) (no date) (unknown) (unknown) Family History (units unknown) (unknown) (unknown) (no date) (unknown) (unknown) Father Stroke (units unknown) (unknown) (unknown) (no date) (unknown) (unknown) Fresh garlic 1 tbsp PO .qday 06/18/18 11/13/19 (units unknown) (unknown) (unknown) (no date) (unknown) (unknown) Fresh garlic (units unknown) (unknown) (unknown) (no date) (unknown) (unknown) GENERAL: Alert pleasant well-appearing 81-year-old male (units unknown) (unknown) (unknown) (no date) (unknown) (unknown) General (units unknown) (unknown) (unknown) (no date) (unknown) (unknown) Globulin 3.1 (1.7-4.1) g/dL (units unknown) (unknown) (unknown) (no date) (unknown) (unknown) Glucose 126 H (80-110) mg/dL (units unknown) (unknown) (unknown) (no date) (unknown) (unknown) HEENT: Head atraumatic,EOMI, pupils reactive, face symmetric, moist mucous (units unknown) (unknown) (unknown) (no date) (unknown) (unknown) HPI - Fall (units unknown) (unknown) (unknown) (no date) (unknown) (unknown) HPI Narrative: (units unknown) (unknown) (unknown) (no date) (unknown) (unknown) Hct 46.5 (41-53) % (units unknown) (unknown) (unknown) (no date) (unknown) (unknown) Hgb 15.5 (13.5-17.5) g/dL (units unknown) (unknown) (unknown) (no date) (unknown) (unknown) History of Present Illness (units unknown) (unknown) (unknown) (no date) (unknown) (unknown) Home Medications (units unknown) (unknown) (unknown) (no date) (unknown) (unknown) IMPRESSION:? No acut e bony abnormality.? (units unknown) (unknown) (unknown) (no date) (unknown) (unknown) IMPRESSION:? No displaced fracture or pneumothorax. (units unknown) (unknown) (unknown) (no date) (unknown) (unknown) IMPRESSION:? (units unknown) (unknown) (unknown) (no date) (unknown) (unknown) INDICATIONS:? fall (units unknown) (unknown) (unknown) (no date) (unknown) (unknown) Image quality:? Excellent.? (units unknown) (unknown) (unknown) (no date) (unknown) (unknown) Imaging Data (units unknown) (unknown) (unknown) (no date) (unknown) (unknown) Initial Vital Signs (units unknown) (unknown) (unknown) (no date) (unknown) (unknown) Initial Vital Signs: (units unknown) (unknown) (unknown) (no date) (unknown) (unknown) Instructions: [place], DI for Shoulder Sprain (units unknown) (unknown) (unknown) (no date) (unknown) (unknown) [address] [address] (units unknown) (unknown) (unknown) (no date) (unknown) (unknown) [facility], CT, CT HEAD/BRAIN WO CON, 04/23/2019, 11:10. (units unknown) (unknown) (unknown) (no date) (unknown) (unknown) Lab Data (units unknown) (unknown) (unknown) (no date) (unknown) (unknown) Lab Results (units unknown) (unknown) (unknown) (no date) (unknown) (unknown) Labs: (units unknown) (unknown) (unknown) (no date) (unknown) (unknown) Lipase 102 (23-300) U/L (units unknown) (unknown) (unknown) (no date) (unknown) (unknown) Lipase Stat (units unknown) (unknown) (unknown) (no date) (unknown) (unknown) Lungs and pleura:? Lungs are clear.? No pleural effusions or pneumothorax.? (units unknown) (unknown) (unknown) (no date) (unknown) (unknown) Lymph # (Auto) 2100 (0649-2367) /uL (units unknown) (unknown) (unknown) (no date) (unknown) (unknown) Lymph % (Auto) 21.3 L (25-40) % (units unknown) (unknown) (unknown) (no date) (unknown) (unknown) MCH 29.2 (26-34) PG (units unknown) (unknown) (unknown) (no date) (unknown) (unknown) MCHC 33.3 (30-36) % (units unknown) (unknown) (unknown) (no date) (unknown) (unknown) MCV 87.7 (80-100) fL (units unknown) (unknown) (unknown) (no date) (unknown) (unknown) MDM - Fall (units unknown) (unknown) (unknown) (no date) (unknown) (unknown) MDM Narrative (units unknown) (unknown) (unknown) (no date) (unknown) (unknown) Mediastinum:? Mediastinal contours appear normal.? Heart size is enlarged.? (units unknown) (unknown) (unknown) (no date) (unknown) (unknown) Medical History (units unknown) (unknown) (unknown) (no date) (unknown) (unknown) Medical decision making narrative: (units unknown) (unknown) (unknown) (no date) (unknown) (unknown) Medication Instructions Recorded Confirmed (units unknown) (unknown) (unknown) (no date) (unknown) (unknown) Medication Instructions Recorded (units unknown) (unknown) (unknown) (no date) (unknown) (unknown) Mode of arrival: Ambulatory (units unknown) (unknown) (unknown) (no date) (unknown) (unknown) [place] # (Auto) 700 (0-900) /uL (units unknown) (unknown) (unknown) (no date) (unknown) (unknown) [place] % (Auto) 6.9 (3-14) % (units unknown) (unknown) (unknown) (no date) (unknown) (unknown) Mother Hear t disease (units unknown) (unknown) (unknown) (no date) (unknown) (unknown) NECK: Cervical colla r in voice mild vertebral tenderness (units unknown) (unknown) (unknown) (no date) (unknown) (unknown) NEUROLOGICAL: Alert and oriented x4 coremaker floor strength equal bilaterally (units unknown) (unknown) (unknown) (no date) (unknown) (unknown) Neut # (Auto) 6700 (1262-0590) /uL (units unknown) (unknown) (unknown) (no date) (unknown) (unknown) Neut % (Auto) 68.7 (50-75) % (units unknown) (unknown) (unknown) (no date) (unknown) (unknown) No Action (units unknown) (unknown) (unknown) (no date) (unknown) (unknown) No acute intracrania l abnormality. (units unknown) (unknown) (unknown) (no date) (unknown) (unknown) No acute osseous abnormality. (units unknown) (unknown) (unknown) (no date) (unknown) (unknown) Noncontrast 3 mm thick sections acquired from the skull base to the T4 level.? (units unknown) (unknown) (unknown) (no date) (unknown) (unknown) Noncontrast 4.5 mm thick angled axial sections acquired from the foramen magnum (units unknown) (unknown) (unknown) (no date) (unknown) (unknown) Ordered: (units unknown) (unknown) (unknown) (no date) (unknown) (unknown) Orders (units unknown) (unknown) (unknown) (no date) (unknown) (unknown) Other intervertebral disc displacement, lumbosacral region (units unknown) (unknown) (unknown) (no date) (unknown) (unknown) Oxygen Delivery Method Room Air 07/12/22 11:44 (units unknown) (unknown) (unknown) (no date) (unknown) (unknown) Oxygen Delivery Method Room Air (units unknown) (unknown) (unknown) (no date) (unknown) (unknown) Oxygen Delivery Method (units unknown) (unknown) (unknown) (no date) (unknown) (unknown) PROCEDURE:? CT CERVICAL SPINE WO CON (units unknown) (unknown) (unknown) (no date) (unknown) (unknown) PROCEDURE:? CT HEAD/BRAIN WO CON (units unknown) (unknown) (unknown) (no date) (unknown) (unknown) PROCEDURE:? XR CHEST 1V (units unknown) (unknown) (unknown) (no date) (unknown) (unknown) PROCEDURE:? XR SHOULDER RT MIN 2V (units unknown) (unknown) (unknown) (no date) (unknown) (unknown) Patient 81-year-old male who presents after what like a possible mechanical fall (units unknown) (unknown) (unknown) (no date) (unknown) (unknown) Patient Disposition: Home (units unknown) (unknown) (unknown) (no date) (unknown) (unknown) Patient History (units unknown) (unknown) (unknown) (no date) (unknown) (unknown) Patient is a 81-year-old male history of hypertension, renal transplant (units unknown) (unknown) (unknown) (no date) (unknown) (unknown) Patient: Fran Muhammad MR#: [id number] (units unknown) (unknown) (unknown) (no date) (unknown) (unknown) Plt Count 213 (150-400) X103/uL (units unknown) (unknown) (unknown) (no date) (unknown) (unknown) Potassium 4.0 (3.4-5.1) mmol/L (units unknown) (unknown) (unknown) (no date) (unknown) (unknown) Prescriptions: (units unknown) (unknown) (unknown) (no date) (unknown) (unknown) Previous Rx's (units unknown) (unknown) (unknown) (no date) (unknown) (unknown) Pulse Oximetry 92 96 95 (units unknown) (unknown) (unknown) (no date) (unknown) (unknown) Pulse Oximetry 92 (units unknown) (unknown) (unknown) (no date) (unknown) (unknown) Pulse Oximetry 93 (units unknown) (unknown) (unknown) (no date) (unknown) (unknown) Pulse Oximetry 94 07/12/22 11:44 (units unknown) (unknown) (unknown) (no date) (unknown) (unknown) Pulse Oximetry 94 92 (units unknown) (unknown) (unknown) (no date) (unknown) (unknown) Pulse Oximetry 94 94 94 (units unknown) (unknown) (unknown) (no date) (unknown) (unknown) Pulse Oximetry 94 (units unknown) (unknown) (unknown) (no date) (unknown) (unknown) Pulse Oximetry (units unknown) (unknown) (unknown) (no date) (unknown) (unknown) Pulse Rate 59 L 60 (units unknown) (unknown) (unknown) (no date) (unknown) (unknown) Pulse Rate 60 (units unknown) (unknown) (unknown) (no date) (unknown) (unknown) Pulse Rate 61 62 (units unknown) (unknown) (unknown) (no date) (unknown) (unknown) Pulse Rate 65 (units unknown) (unknown) (unknown) (no date) (unknown) (unknown) Pulse Rate 67 (units unknown) (unknown) (unknown) (no date) (unknown) (unknown) Pulse Rate 68 72 66 (units unknown) (unknown) (unknown) (no date) (unknown) (unknown) Pulse Rate 68 (units unknown) (unknown) (unknown) (no date) (unknown) (unknown) Pulse Rate 69 (units unknown) (unknown) (unknown) (no date) (unknown) (unknown) Pulse Rate 70 07/12/22 11:44 (units unknown) (unknown) (unknown) (no date) (unknown) (unknown) Pulse Rate 70 72 68 (units unknown) (unknown) (unknown) (no date) (unknown) (unknown) RBC 5.30 (4.5-5.9) X106/uL (units unknown) (unknown) (unknown) (no date) (unknown) (unknown) RDW 13.7 (11.6-14.8) % (units unknown) (unknown) (unknown) (no date) (unknown) (unknown) RESPIRATORY: Breath sounds equal bilaterally, no wheezes rales or rhonchi. (units unknown) (unknown) (unknown) (no date) (unknown) (unknown) ROS Unobtainable: Al l systems reviewed + are unremarkable except as noted in HPI (units unknown) (unknown) (unknown) (no date) (unknown) (unknown) Radiologist's Impression: (units unknown) (unknown) (unknown) (no date) (unknown) (unknown) Really complaining o f some right shoulder pain. Now he feels dizzy and (units unknown) (unknown) (unknown) (no date) (unknown) (unknown) Referrals: (units unknown) (unknown) (unknown) (no date) (unknown) (unknown) Related Data (units unknown) (unknown) (unknown) (no date) (unknown) (unknown) Respiratory Rate 14 07/12/22 11:44 (units unknown) (unknown) (unknown) (no date) (unknown) (unknown) Respiratory Rate 14 25 H (units unknown) (unknown) (unknown) (no date) (unknown) (unknown) Respiratory Rate 17 26 H 23 (units unknown) (unknown) (unknown) (no date) (unknown) (unknown) Respiratory Rate 17 (units unknown) (unknown) (unknown) (no date) (unknown) (unknown) Respiratory Rate 21 19 (units unknown) (unknown) (unknown) (no date) (unknown) (unknown) Respiratory Rate 22 20 (units unknown) (unknown) (unknown) (no date) (unknown) (unknown) Respiratory Rate 22 (units unknown) (unknown) (unknown) (no date) (unknown) (unknown) Respiratory Rate 27 H (units unknown) (unknown) (unknown) (no date) (unknown) (unknown) Review of Systems (units unknown) (unknown) (unknown) (no date) (unknown) (unknown) Right shoulder decreased abduction no clavicle step-off no gross shoulder (units unknown) (unknown) (unknown) (no date) (unknown) (unknown) Right shoulder injury (units unknown) (unknown) (unknown) (no date) (unknown) (unknown) SKIN: Warm, dry, no laceration, no petechiae, no rashes or lesions. (units unknown) (unknown) (unknown) (no date) (unknown) (unknown) Sagittal (units unknown) (unknown) (unknown) (no date) (unknown) (unknown) Signed By: (units unknown) (unknown) (unknown) (no date) (unknown) (unknown) Sinuses:? Visualized sinuses and mastoids are clear.? (units unknown) (unknown) (unknown) (no date) (unknown) (unknown) Skull and face:? Calvarium and visualized facial bones are intact, without (units unknown) (unknown) (unknown) (no date) (unknown) (unknown) Smoking Status: Nilsa r smoker (units unknown) (unknown) (unknown) (no date) (unknown) (unknown) Social History (units unknown) (unknown) (unknown) (no date) (unknown) (unknown) Sodium 136 L (137-145) mmol/L (units unknown) (unknown) (unknown) (no date) (unknown) (unknown) Soft tissues:? No suspicious soft tissue calcifications.? (units unknown) (unknown) (unknown) (no date) (unknown) (unknown) Soft tissues:? Prevertebral soft tissues are normal in thickness.? No (units unknown) (unknown) (unknown) (no date) (unknown) (unknown) Source: patient (units unknown) (unknown) (unknown) (no date) (unknown) (unknown) Sprain of shoulder, right, Cervical sprain (units unknown) (unknown) (unknown) (no date) (unknown) (unknown) Stand Alone Forms: Patient Portal/API (units unknown) (unknown) (unknown) (no date) (unknown) (unknown) Stated Complaint: Fall, Dizzy, cant turn head, R shoulder/abd (units unknown) (unknown) (unknown) (no date) (unknown) (unknown) Substance Use Type: does not use (units unknown) (unknown) (unknown) (no date) (unknown) (unknown) Surgical changes and devices:? None.? (units unknown) (unknown) (unknown) (no date) (unknown) (unknown) TECHNIQUE:? 2 views of the shoulder were acquired.? (units unknown) (unknown) (unknown) (no date) (unknown) (unknown) TECHNIQUE:? One view of the chest was acquired.? (units unknown) (unknown) (unknown) (no date) (unknown) (unknown) TECHNIQUE:? (units unknown) (unknown) (unknown) (no date) (unknown) (unknown) Temperature 98.1 F 07/12/22 11:44 (units unknown) (unknown) (unknown) (no date) (unknown) (unknown) Temperature 98.1 F (units unknown) (unknown) (unknown) (no date) (unknown) (unknown) Temperature (units unknown) (unknown) (unknown) (no date) (unknown) (unknown) Time Seen by Provider: 07/12/22 11:55 (units unknown) (unknown) (unknown) (no date) (unknown) (unknown) Total Bilirubin 0.8 (0.2-1.3) mg/dL (units unknown) (unknown) (unknown) (no date) (unknown) (unknown) Total Creatine Kinas e 37 L (55-170) U/L (units unknown) (unknown) (unknown) (no date) (unknown) (unknown) Total Protein 7.3 (6.3-8.2) g/dL (units unknown) (unknown) (unknown) (no date) (unknown) (unknown) Troponin + CK Cardia c Panel Stat (units unknown) (unknown) (unknown) (no date) (unknown) (unknown) Troponin I < 0.012 (0.01-0.034) ng/mL (units unknown) (unknown) (unknown) (no date) (unknown) (unknown) Tylenol as needed fo r pain (units unknown) (unknown) (unknown) (no date) (unknown) (unknown) Ventricles (units unknown) (unknown) (unknown) (no date) (unknown) (unknown) Vital Signs - 8 hr (units unknown) (unknown) (unknown) (no date) (unknown) (unknown) Vital Signs (units unknown) (unknown) (unknown) (no date) (unknown) (unknown) Vital signs: (units unknown) (unknown) (unknown) (no date) (unknown) (unknown) WBC 9.7 (4.5-11.0) X103/uL (units unknown) (unknown) (unknown) (no date) (unknown) (unknown) XR shoulder RT min 2 V Stat (units unknown) (unknown) (unknown) (no date) (unknown) (unknown) [Embedded Image Not Available] (units unknown) (unknown) (unknown) (no date) (unknown) (unknown) abnormality distal radial pulse intact (units unknown) (unknown) (unknown) (no date) (unknown) (unknown) abnormality. At this time it sounds the patient had a mechanical fall without (units unknown) (unknown) (unknown) (no date) (unknown) (unknown) abnormality. Blood work is overall reassuring. No need for any further workup (units unknown) (unknown) (unknown) (no date) (unknown) (unknown) about 5 stairs to th e bottom of the staircase. tried to help get him up he (units unknown) (unknown) (unknown) (no date) (unknown) (unknown) activity not recommended some movement will help (units unknown) (unknown) (unknown) (no date) (unknown) (unknown) alcohol intake frequency: 0-2 drinks per day (units unknown) (unknown) (unknown) (no date) (unknown) (unknown) alcohol intake: former (units unknown) (unknown) (unknown) (no date) (unknown) (unknown) amlodipine 5 mg tablet 5 mg PO BID 01/16/19 11/13/19 (units unknown) (unknown) (unknown) (no date) (unknown) (unknown) amlodipine 5 mg tablet (units unknown) (unknown) (unknown) (no date) (unknown) (unknown) and below (units unknown) (unknown) (unknown) (no date) (unknown) (unknown) and coronal reformat s were then constructed.? For radiation dose reduction, the (units unknown) (unknown) (unknown) (no date) (unknown) (unknown) any significant injury. He does not want anything more than Tylenol for pain. (units unknown) (unknown) (unknown) (no date) (unknown) (unknown) appear intact.? (units unknown) (unknown) (unknown) (no date) (unknown) (unknown) appear (units unknown) (unknown) (unknown) (no date) (unknown) (unknown) are normal in size and shape.? (units unknown) (unknown) (unknown) (no date) (unknown) (unknown) aspirin 81 mg chewable tablet 81 mg PO DAILY 01/16/19 11/13/19 (units unknown) (unknown) (unknown) (no date) (unknown) (unknown) aspirin 81 mg tablet,chewable (units unknown) (unknown) (unknown) (no date) (unknown) (unknown) benzonatate 200 mg capsule 200 mg PO TID PRN cough #20 caps 07/10/22 (units unknown) (unknown) (unknown) (no date) (unknown) (unknown) benzonatate 200 mg capsule (units unknown) (unknown) (unknown) (no date) (unknown) (unknown) cervical spine.? Visualized superior ribs are intact.? (units unknown) (unknown) (unknown) (no date) (unknown) (unknown) chlorthalidone 25 mg tablet 12.5 mg PO DAILY 01/16/19 11/13/19 (units unknown) (unknown) (unknown) (no date) (unknown) (unknown) chlorthalidone 25 mg tablet (units unknown) (unknown) (unknown) (no date) (unknown) (unknown) confusion or any new , worsening or concerning symptoms (units unknown) (unknown) (unknown) (no date) (unknown) (unknown) consistent with chronic microvascular ischemic change. Age-related parenchymal (units unknown) (unknown) (unknown) (no date) (unknown) (unknown) eventually made it up. However he was in severe pain throughout the night. (units unknown) (unknown) (unknown) (no date) (unknown) (unknown) following (units unknown) (unknown) (unknown) (no date) (unknown) (unknown) guarding or rebound. (units unknown) (unknown) (unknown) (no date) (unknown) (unknown) he had his hand on the railing when the next thing he knew he would fallen down (units unknown) (unknown) (unknown) (no date) (unknown) (unknown) hematomas.? No apica l pneumothoraces.? (units unknown) (unknown) (unknown) (no date) (unknown) (unknown) hypodensity (units unknown) (unknown) (unknown) (no date) (unknown) (unknown) immediate-release (units unknown) (unknown) (unknown) (no date) (unknown) (unknown) in a large vascular distribution to suggest acute infarction. Periventricular (units unknown) (unknown) (unknown) (no date) (unknown) (unknown) intact (units unknown) (unknown) (unknown) (no date) (unknown) (unknown) lesions.? (units unknown) (unknown) (unknown) (no date) (unknown) (unknown) lightheaded. He is having some cervical pain. No nausea vomiting numbness (units unknown) (unknown) (unknown) (no date) (unknown) (unknown) lisinopril AdvReac Intermediate Verified 07/12/22 11:49 (units unknown) (unknown) (unknown) (no date) (unknown) (unknown) losartan 25 mg table t 50 mg PO DAILY 07/05/20 07/05/20 (units unknown) (unknown) (unknown) (no date) (unknown) (unknown) losartan 25 mg tablet (units unknown) (unknown) (unknown) (no date) (unknown) (unknown) loss. (units unknown) (unknown) (unknown) (no date) (unknown) (unknown) marital status: (units unknown) (unknown) (unknown) (no date) (unknown) (unknown) membranes (units unknown) (unknown) (unknown) (no date) (unknown) (unknown) multivitamin 1 tab P O DAILY 01/16/19 11/13/19 (units unknown) (unknown) (unknown) (no date) (unknown) (unknown) multivitamin Tablet (units unknown) (unknown) (unknown) (no date) (unknown) (unknown) pain. Imaging head cervical spine chest x-ray and shoulder do not show any (units unknown) (unknown) (unknown) (no date) (unknown) (unknown) paravertebral (units unknown) (unknown) (unknown) (no date) (unknown) (unknown) patient (units unknown) (unknown) (unknown) (no date) (unknown) (unknown) prednisone 5 mg tablet 5 mg PO DAILY 01/16/19 11/13/19 (units unknown) (unknown) (unknown) (no date) (unknown) (unknown) prednisone 5 mg tablet (units unknown) (unknown) (unknown) (no date) (unknown) (unknown) primidone AdvReac Intermediate Verified 07/12/22 11:49 (units unknown) (unknown) (unknown) (no date) (unknown) (unknown) ribs (units unknown) (unknown) (unknown) (no date) (unknown) (unknown) secondary to nephrosclerosis, chronic back pain presents today after a fall (units unknown) (unknown) (unknown) (no date) (unknown) (unknown) simvastatin AdvReac Intermediate Verified 07/12/22 11:49 (units unknown) (unknown) (unknown) (no date) (unknown) (unknown) size.? (units unknown) (unknown) (unknown) (no date) (unknown) (unknown) sore for the next couple of days. Increase activity as tolerated strenuous (units unknown) (unknown) (unknown) (no date) (unknown) (unknown) suspicious (units unknown) (unknown) (unknown) (no date) (unknown) (unknown) tacrolimus 1 mg capsule (units unknown) (unknown) (unknown) (no date) (unknown) (unknown) tacrolimus 1 mg capsule, 2 mg PO Q12H 01/16/19 11/13/19 (units unknown) (unknown) (unknown) (no date) (unknown) (unknown) tamsulosin 0.4 mg capsule (Flomax) 0.8 mg PO DAILY 02/26/19 11/13/19 (units unknown) (unknown) (unknown) (no date) (unknown) (unknown) tamsulosin [Flomax] 0.4 mg capsule (units unknown) (unknown) (unknown) (no date) (unknown) (unknown) the (units unknown) (unknown) (unknown) (no date) (unknown) (unknown) tingling or weakness . He does take aspirin daily no fever or chills. (units unknown) (unknown) (unknown) (no date) (unknown) (unknown) to the (units unknown) (unknown) (unknown) (no date) (unknown) (unknown) today 1.6 previously 1.9. No significant leukocytosis or electrolyte (units unknown) (unknown) (unknown) (no date) (unknown) (unknown) today. No evidence o f infection. Creatinine is actually improved from previous (units unknown) (unknown) (unknown) (no date) (unknown) (unknown) tree pollen Allergy Intermediate Uncoded 07/10/22 12:48 (units unknown) (unknown) (unknown) (no date) (unknown) (unknown) unremarkable.? (units unknown) (unknown) (unknown) (no date) (unknown) (unknown) vertex, with coronal and sagittal reformats.? For radiation dose reduction, the (units unknown) (unknown) (unknown) (no date) (unknown) (unknown) was used:? automated exposure control, adjustment of mA and/or kV according to (units unknown) (unknown) (unknown) (no date) (unknown) (unknown) yesterday down stairs. Complaining of right shoulder pain. And some neck (units unknown) (unknown) (unknown) (no date) (unknown) (unknown) yesterday. He report s that he was going down the stairs he was carrying his dog (units unknown) (unknown) (unknown) (no date) (unknown) (unknown) zolpidem [From Ambien] AdvReac Intermediate Verified 07/12/22 11:49 (units unknown) (unknown) Social History date description facility 2022-07-10 00:00 Never smoked tobacco (finding) [facility] 2022-07-12 00:00 Never smoked tobacco (finding) [facility] Vital Signs date measurement value units 2022-07-10 00:00 BP_diastolic 86 mmHg 2022-07-10 00:00 BP_systolic 142 mmHg 2022-07-10 00:00 heart_rate 60 /min 2022-07-10 00:00 o2_saturation 97 % 2022-07-10 00:00 respiration_rate 20 /min 2022-07-10 00:00 temperature_metric 36.78 C 2022-07-10 00:00 temperature_standard 98.2 F 2022-07-12 00:00 BP_diastolic 94 mmHg 2022-07-12 00:00 BP_systolic 164 mmHg 2022-07-12 00:00 heart_rate 60 /min 2022-07-12 00:00 o2_saturation 93 % 2022-07-12 00:00 respiration_rate 19 /min 2022-07-12 00:00 temperature_metric 36.72 C 2022-07-12 00:00 temperature_standard 98.1 F
--- NOTE | 2022-07-24 07:49 | ED Physician Documentation ---
PD HPI HEAD INJURY - Stated complaint Stated Complaint: GLF/EYE BROW LAC - Chief complaint Chief Complaint: Laceration - History obtained from History obtained from: Patient - History of Present Illness Mechanism of head injury: Fell (They had returned from a trip and he was tired. He was laying on the bed and his dog was with him crowding him to the side. He rolled and fell off the bed striking his eyebrow area on the nightstand. Normal neuro. Not on blood thinners. Laceration to eyebrow area.) Timing - onset: How many hours ago (1), Today Location of injury: Left, Front Associated symptoms: No: LOC, AMS, Nausea / vomiting Symptoms worsen with: Palpation Contributing factors: No: Anticoagulated Similar symptoms before: Has not had sx before Review of Systems Eyes: denies: Loss of vision, Decreased vision Neurologic: denies: Focal weakness, Numbness, Altered mental status, LOC PD PAST MEDICAL HISTORY - Past Medical History Cardiovascular: Hypertension, High cholesterol : Renal insuffiency - Past Surgical History Past Surgical History: Yes - Present Medications Home Medications: Ambulatory Orders Medication Instructions Recorded Confirmed Aspirin 81 mg PO DAILY 06/04/17 01/02/20 Chlorthalidone 12.5 mg PO DAILY 01/02/20 01/02/20 Losartan Potassium 25 mg PO BID 01/02/20 01/02/20 Multivitamin [Multivitamins] 1 cap PO DAILY 01/02/20 01/02/20 Tacrolimus [Prograf] 1 mg PO QPM 01/02/20 01/02/20 Tacrolimus [Prograf] 2 mg PO DAILY 01/02/20 01/02/20 Tamsulosin HCl [Flomax] 0.4 mg PO QPM 01/02/20 01/02/20 amLODIPine [Norvasc] 5 mg PO BID 01/02/20 01/02/20 levoFLOXacin [Levaquin] 500 mg PO QD #20 tablet 01/02/20 predniSONE [Prednisone] 5 mg PO DAILY 01/02/20 01/02/20 - Allergies Allergies/Adverse Reactions: Allergies Allergy/AdvReac Type Severity Reaction Status Date / Time pravastatin Allergy Unknown Verified 07/24/22 07:41 primidone Allergy Dizziness Verified 07/24/22 07:41 simvastatin Allergy Unknown Verified 07/24/22 07:41 zolpidem [From Ambien] Allergy Hallucinati Verified 07/24/22 07:41 ons Nansget-RJY-WwL Reductase AdvReac Unknown Verified 07/24/22 07:41 Inhibitor [Okmkbef-Kqn-Uhi Reductase Inhibitor] - Social History Does the pt smoke?: No Smoking Status: Never smoker Does the pt drink ETOH?: No Does the pt have substance abuse?: No - Immunizations Immunizations are current?: Yes - POLST Patient has POLST: Yes PD ED PE NORMAL - Vitals Vital signs reviewed: Yes - General General: Alert and oriented X 3, No acute distress, Well developed/nourished - HEENT HEENT: PERRL, EOMI, Other (left eyebrow area with 2 cm lac full thickness with mild bleeding. no FB. 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, No motor deficit, No sensory deficit, Normal speech Eye Opening: Spontaneous Motor: Obeys Commands Verbal: Oriented GCS Score: 15 Results - Vitals Vitals: Vital Signs - 24 hr 07/24/22 07/24/22 07:38 08:25 Temperature 36.0 C L 36.5 C Heart Rate 56 L 60 Respiratory 18 16 Rate Blood Pressure 140/80 H 130/80 O2 Saturation 97 98 Oxygen O2 Source Room air Procedures - Laceration (location) left eyebrow area Length in cm: 2 Wound type: Curved, Into subcut fat, Clean Neurovascular status: Sensory intact Anesthesia: Lidocaine 1% with epi Wound preparation: Irrigated copiously NS, Wound explored, To the base Deep layer closure: Vicryl, size #-0 - enter number (6), # sutures - enter number (3) Skin layer closure: Nylon, Running, Size #-0 - enter number (6), Sutures - enter # (10) Other: Patient tolerated well, No complications, Tetanus UTD PD Medical Decision Making - ED course Complexity details: considered differential (Rolled from bed and struck his eyebrow area on the nightstand. Laceration but no concussive symptoms. Not on a blood thinner. Here for evaluation of the laceration. It is bleeding still and the edges are somewhat apart. I believe it needs suturing for good closure. This was done without any co), d/w patient Departure - Departure Disposition: 01 Home, Self Care Clinical Impression: Eyebrow laceration Qualifiers: Encounter type: initial encounter Laterality: left Qualified Code(s): S01.112A - Laceration without foreign body of left eyelid and periocular area, initial encounter Condition: Stable Record reviewed to determine appropriate education?: Yes Instructions: ED Laceration Facial Sutr Tape Follow-Up: Jenni Stoll ARNP [Primary Care Provider] - Comments: It is okay to wash and shower. Clean off the wound twice a day with soap and water, or peroxide and water. Apply some antibiotic ointment to it to keep it moist. Also to watch for signs of infection such as purulence, redness or increasing pain. Return to your primary care or the ER at the specified time for suture removal. Suture removal 8 to 10 days. Tylenol if needed for pains. Discharge Date/Time: 07/24/22 08:25
[2022-07-24 08:31] VITALS: BP 130/80
== END 2022-07-24 08:25 | disposition home or self-care (01) ==
LOC: ED 07:31
DX: S01.112A Laceration without foreign body of left eyelid and periocular area, initial encounter (principal); W06.XXXA Fall from bed, initial encounter; Y92.003 Bedroom of unspecified non-institutional (private) residence as the place of occurrence of the external cause
CPT/HCPCS: 12051

== ENCOUNTER 2022-11-08 06:15 | Outpatient (CLI) | payer OTHER ==
[2022-11-08 07:00] LABS: BILIRUBIN,URINE NEGATIVE (NEGATIVE); GLUCOSE, URINE (UA) NEGATIVE (NEGATIVE); KETONES,URINE (UA) NEGATIVE (NEGATIVE); LEUKOCYTE ESTERASE, URINE NEGATIVE (NEGATIVE); NITRITE,URINE NEGATIVE (NEGATIVE); OCCULT BLOOD,URINE NEGATIVE (NEGATIVE); PROTEIN,URINE NEGATIVE (NEGATIVE); UROBILINOGEN,URINE 0.2 (NORMAL) E.U./dL (NORMAL)
[2022-11-08 07:05] LABS: BASOPHILS % (AUTO) 0.5 %; EOSINOPHILS # (AUTO) 0.2 10^3/uL (0.0-0.7); EOSINOPHILS % (AUTO) 2.2 %; HCT - HEMATOCRIT 47.4 % (42.0-52.0); HGB - HEMOGLOBIN 15.5 g/dL (14.0-18.0); LYMPHOCYTES # (AUTO) 2.5 10^3/uL (1.5-3.5); LYMPHOCYTES % (AUTO) 30.3 %; MEAN CORPUSCULAR HEMOGLOBIN 29.1 pg (27.0-31.0); MEAN CORPUSCULAR HGB CONC 32.7 g/dL (32.0-36.0); MEAN CORPUSCULAR VOLUME 88.9 fL (80.0-94.0); MEAN PLATELET VOLUME 9.6 fL (7.4-11.4); MONOCYTES # (AUTO) 0.7 10^3/uL (0.0-1.0); MONOCYTES % (AUTO) 8.7 %; NEUTROPHILS # (AUTO) 4.8 10^3/uL (1.5-6.6); NEUTROPHILS % (AUTO) 57.7 %; PLT - PLATELET COUNT 224 10^3/uL (130-450); RED BLOOD COUNT 5.33 10^6/uL (4.70-6.10); RED CELL DISTRIBUTION WIDTH 13.7 % (12.0-15.0); WHITE BLOOD COUNT 8.3 x10^3/uL (4.8-10.8)
[2022-11-08 07:11] LABS: ALBUMIN 4.1 g/dL (3.2-5.5); ALBUMIN/GLOBULIN RATIO 1.5 (1.0-2.2); BILIRUBIN,TOTAL 1.1 mg/dL (0.2-1.0); CALCIUM 9.8 mg/dL (8.5-10.3); CLARITY,URINE CLEAR (CLEAR); CREATININE 1.5 mg/dL (0.6-1.3); MAGNESIUM 1.4 mg/dL (1.7-2.3); PHOSPHORUS 4.3 mg/dL (2.5-5.0); POTASSIUM 3.8 mmol/L (3.5-4.5); TOTAL PROTEIN 6.8 g/dL (6.4-8.9)
[2022-11-08 07:13] LABS: CREATININE,URINE 60.6 mg/dL; PROTEIN/CREATININE RATIO,URINE 0.1 (<=0.2)
[2022-11-08 08:06] LABS: BACTERIA,URINE Rare /HPF (None Seen); RBC,URINE 0-5 /HPF (0-5); SQUAMOUS EPITHELIAL CELL,UR RARE Squamous (<= Few); WBC,URINE 0-3 /HPF (0-3)
[2022-11-08 12:26] LABS: ESTIMATED AVERAGE GLUCOSE 143 mg/dL (70-100); HEMOGLOBIN A1c% 6.6 % (4.27-6.07)
[2022-11-11 22:07] LABS: BK QUANTITATION PCR Negative (Negative)
== END 2022-11-08 06:16 | disposition home or self-care (01) ==
LOC: LAB 06:15
PROVIDERS: ATTEND Internal Medicine Nephrology
DX: Z51.81 Encounter for therapeutic drug level monitoring (principal); B33.8 Other specified viral diseases; Z94.0 Kidney transplant status; R73.9 Hyperglycemia, unspecified; Z79.899 Other long term (current) drug therapy
CPT/HCPCS: 36415; 80053; 80197; 81001; 82570; 83036; 83735; 84100; 84156; 85025; 87799

== ENCOUNTER 2023-01-26 04:14 | Outpatient (CLI) | payer MEDICARE, OTHER ==
[2023-01-26 04:43] LABS: BILIRUBIN,URINE NEGATIVE (NEGATIVE); GLUCOSE, URINE (UA) NEGATIVE (NEGATIVE); KETONES,URINE (UA) NEGATIVE (NEGATIVE); LEUKOCYTE ESTERASE, URINE NEGATIVE (NEGATIVE); NITRITE,URINE NEGATIVE (NEGATIVE); OCCULT BLOOD,URINE NEGATIVE (NEGATIVE); PH,URINE 5.5 PH (5.0-7.5); PROTEIN,URINE NEGATIVE (NEGATIVE); UROBILINOGEN,URINE 0.2 (NORMAL) E.U./dL (NORMAL)
[2023-01-26 04:52] LABS: BACTERIA,URINE None Seen /HPF (None Seen); CLARITY,URINE CLEAR (CLEAR); RBC,URINE None Seen /HPF (0-5); SQUAMOUS EPITHELIAL CELL,UR RARE Squamous (<= Few); WBC,URINE 0-3 /HPF (0-3)
[2023-01-26 05:05] LABS: PROTEIN/CREATININE RATIO,URINE 0.1 (<=0.2)
[2023-01-26 05:40] LABS: BASOPHILS # (AUTO) 0.1 10^3/uL (0.0-0.1); BASOPHILS % (AUTO) 0.7 %; EOSINOPHILS # (AUTO) 0.1 10^3/uL (0.0-0.7); EOSINOPHILS % (AUTO) 1.8 %; HCT - HEMATOCRIT 46.4 % (42.0-52.0); HGB - HEMOGLOBIN 15.2 g/dL (14.0-18.0); LYMPHOCYTES # (AUTO) 2.1 10^3/uL (1.5-3.5); LYMPHOCYTES % (AUTO) 29.7 %; MEAN CORPUSCULAR HEMOGLOBIN 29.6 pg (27.0-31.0); MEAN CORPUSCULAR HGB CONC 32.8 g/dL (32.0-36.0); MEAN CORPUSCULAR VOLUME 90.3 fL (80.0-94.0); MEAN PLATELET VOLUME 9.7 fL (7.4-11.4); MONOCYTES # (AUTO) 0.6 10^3/uL (0.0-1.0); NEUTROPHILS # (AUTO) 4.1 10^3/uL (1.5-6.6); NEUTROPHILS % (AUTO) 58.4 %; PLT - PLATELET COUNT 198 10^3/uL (130-450); RED BLOOD COUNT 5.14 10^6/uL (4.70-6.10); RED CELL DISTRIBUTION WIDTH 13.5 % (12.0-15.0); WHITE BLOOD COUNT 7.1 x10^3/uL (4.8-10.8)
[2023-01-26 05:52] LABS: ALBUMIN 3.9 g/dL (3.2-5.5); ALBUMIN/GLOBULIN RATIO 1.4 (1.0-2.2); BILIRUBIN,TOTAL 0.8 mg/dL (0.2-1.0); CALCIUM 9.1 mg/dL (8.5-10.3); CREATININE 1.7 mg/dL (0.6-1.3); MAGNESIUM 1.7 mg/dL (1.7-2.3); PHOSPHORUS 4.5 mg/dL (2.5-5.0); POTASSIUM 3.9 mmol/L (3.5-4.5); TOTAL PROTEIN 6.6 g/dL (6.4-8.9)
[2023-01-26 08:15] LABS: ESTIMATED AVERAGE GLUCOSE 143 mg/dL (70-100); HEMOGLOBIN A1c% 6.6 % (4.27-6.07)
[2023-01-27 02:08] LABS: VITAMIN D 25-HYDROXY 40.5 ng/mL (30.0-100.0)
[2023-01-27 11:10] LABS: TACROLIMUS (FK506) 8.6 ng/mL (2.0-20.0)
== END 2023-01-26 04:15 | disposition home or self-care (01) ==
LOC: LAB 04:14
PROVIDERS: ATTEND Nurse Practitioner
DX: Z51.81 Encounter for therapeutic drug level monitoring (principal); B33.8 Other specified viral diseases; Z94.0 Kidney transplant status; R73.9 Hyperglycemia, unspecified; Z79.899 Other long term (current) drug therapy
CPT/HCPCS: 36415; 80053; 80197; 81001; 81599; 82306; 82570; 83036; 83735; 83970; 84100; 84156; 85025; 87799

== ENCOUNTER 2023-10-19 07:58 | Day surgery (SDC) | payer OTHER ==
[2023-10-19] MEDS: LACTATED RINGERS 1,000 ML IV ONE ×2 (08:02→09:35)
[2023-10-19] MEDS: PROPARACAINE 0.5% OPHTH DROPS 15 ML ONE (08:03)
[2023-10-19] MEDS: CYCLOPENTOLATE 1% OPHTH DROPS 2 ML ONE (08:03)
[2023-10-19] MEDS: KETOROLAC TROMETHAMINE 0.5% OPHTH DROPS 5 ML ONE (08:03)
[2023-10-19] MEDS: PHENYLEPHRINE 2.5% OPHTH 2 ML DROPS ONE (08:04)
[2023-10-19] MEDS ORDERED: MIDAZOLAM 2 MG/2 ML VIAL ONE (08:44)
--- NOTE | 2023-10-19 08:47 | ANESTHESIA ---
Pre-Anesthesia VS, & Labs - Diagnosis left cataract - Procedure left cataract extraction with IOL Vital Signs: Temp Pulse Resp BP Pulse Ox O2 Flow Rate 36.4 C L 62 16 158/91 H 96 10/19/23 08:17 10/19/23 08:17 10/19/23 08:17 10/19/23 08:17 10/19/23 08:17 Height: 5 ft 10 in Weight (kg): 103.8 kg Body Mass Index: 32.8 BMI Classification: Obese - NPO >8 hours Home Medications and Allergies Aspirin 81 mg PO DAILY 06/04/17 Chlorthalidone 12.5 mg PO DAILY 01/02/20 Losartan Potassium 50 mg PO BID 01/02/20 Multivitamin [Multivitamins] 1 cap PO DAILY 01/02/20 Tacrolimus [Prograf] 1 mg PO QPM 01/02/20 Tacrolimus [Prograf] 2 mg PO DAILY 01/02/20 Tamsulosin HCl [Flomax] 0.4 mg PO QPM 01/02/20 amLODIPine [Norvasc] 5 mg PO BID 01/02/20 predniSONE [Prednisone] 5 mg PO DAILY 01/02/20 Allergies/Adverse Reactions: Allergies Allergy/AdvReac Type Severity Reaction Status Date / Time pravastatin Allergy Unknown Verified 10/18/23 14:02 primidone Allergy Dizziness Verified 10/18/23 14:02 simvastatin Allergy Unknown Verified 10/18/23 14:02 zolpidem [From Ambien] Allergy Hallucinati Verified 10/18/23 14:02 ons Uqhszia-XWN-MhS Reductase AdvReac Unknown Verified 10/18/23 14:02 Inhibitor [Sfszgru-Pnq-Qab Reductase Inhibitor] Anes History & Medical History - Anesthetic History Anesthesia Complications: reports: No previous complications - Medical History Cardiovascular: reports: Hypertension, High cholesterol, Murmur, Other Pulmonary: reports: Sleep apnea, CPAP use Gastrointestinal: reports: None Urinary: reports: Other (renal transplant) Musculoskeletal: reports: None Endocrine/Autoimmune: reports: None Skin: reports: Other Smoking Status: Never smoker - Surgical History Eyes Ears Nose Throat (EENT): reports: Cataracts 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
[2023-10-19] MEDS ORDERED: TRIAMCIN/MOXIFLOX OPHTHALMIC 0.6 ML VIAL IO ONE (08:53)
[2023-10-19] MEDS ORDERED: BRIMONIDINE 0.2% OPHTH DROPS 5 ML ONE (08:53)
[2023-10-19] MEDS ORDERED: BSS/LIDOCAINE/EPINEPHRINE 1 ML VIAL ONE (08:53)
[2023-10-19] MEDS ORDERED: EPINEPHrine 1 MG/ML AMP ONE (08:53)
[2023-10-19] MEDS ORDERED: TIMOLOL 0.5% OPHTH DROPS ONE (08:53)
[2023-10-19] MEDS: TIMOLOL 0.5% OPHTH DROPS OPTH ONE (09:14)
[2023-10-19] MEDS: EPINEPHrine 1 MG/ML AMP IR ONE (09:14)
[2023-10-19] MEDS: BRIMONIDINE 0.2% OPHTH DROPS 5 ML OPTH ONE (09:14)
[2023-10-19] MEDS ORDERED: fentaNYL 100 MCG/2 ML VIAL ONE (09:15)
[2023-10-19] MEDS: VANCOMYCIN OPHTH (TOPICAL) 10 MG/ML SYRINGE TOP ONE (09:15)
[2023-10-19] MEDS: TRIAMCIN/MOXIFLOX OPHTHALMIC 0.6 ML VIAL IO ONE (09:15)
[2023-10-19] MEDS: BSS/LIDOCAINE/EPINEPHRINE 1 ML SYRINGE IO ONE (09:15)
[2023-10-19] MEDS: PROPARACAINE 0.5% OPHTH DROPS 15 ML LEFTEYE ONE (09:15)
--- NOTE | 2023-10-19 09:39 | OPERATIVE REPORT ---
Operative Report - Other Other Information/Narrative: Date of Surgery: 10/19/23 Preop Dx: Visually significant cataract left eye. This was the first cataract surgery. Postop Dx: Same Procedure: Phacoemulsification with posterior chamber intraocular lens implant left eye Surgeon: Dr. Pablito Saumels Anesthesia: Monitored anesthesia care Complications: None Operative Indications: This is a 82-year-old M with progressive vision loss in the left eye due to 2-3+ nuclear sclerotic and 2+ cortical cataract. Best corrected visual acuity was 20/25 with glare to 20/150 vision in the left eye. Indications for surgery were: - Overall decrease in vision - Difficulty seeing words on a computer screen - Difficulty reading - Difficulty seeing street signs - Difficulty driving in low light or at night - Difficulty with glare or bright lights in any situation The patient was consented at length concerning the risks and benefits of cataract surgery after which the patient expressed a desire to proceed with surgery. Operative Procedure: The patient was taken into OR#3 and placed under monitored anesthesia care. A surgical time-out was conducted confirming correct patient, correct procedure, and correct surgical site. The patient was given topical anesthesia and then prepped and draped in the usual sterile fashion. The eye was entered at the 6 and 3 oclock positions. Intracameral Shugarcaine was injected into the anterior chamber followed by a dispersive viscoelastic. A continuous-tear curvilinear capsulorhexis was performed. The nucleus was hydrodissected and phacoemulsified. The cortex was evacuated using automated infusion and aspiration. A cohesive viscoelastic was injected into the capsular bag and a 22.0 diopter intraocular lens was inserted into the bag. Infusion and aspiration were used to evacuate the viscoelastic materials from the eye. The wounds were hydrated and the eye inflated to physiologic pressure using balanced salt solution. Approximately 0.25ml of a mixture of triamcinolone and moxifloxacin was injected trans-sclerally into the vitreous in the inferotemporal quadrant using a 30 gauge cannula. An additional 0.25ml of a mix ture of triamcinolone and moxifloxacin was injected subconjunctivally in the superior quadrant for infection and inflammation prophylaxis. Wound integrity was checked with Weck-Hermelinda sponges. The patient was taken from the operating room in good condition and given post-op instructions.
[2023-10-19 09:59] VITALS: BP 115/73; O2SAT 91
--- NOTE | 2023-10-19 11:31 | ANESTHESIA POST OP EVALUATION ---
Anesthesia Post Eval - Post Anesthesia Eval Vitals: Last Vital Signs Temp 36.2 C L 10/19/23 09:45 Pulse 58 L 10/19/23 09:45 Resp 14 10/19/23 09:45 BP 115/73 10/19/23 09:45 Pulse Ox 91 L 10/19/23 09:45 O2 Flow Rate CV Function Including HR & BP: Stable Pain Control: Satisfactory Nausea & Vomiting: Negative Mental Status: Baseline Respiratory Status: Airway Patent Hydration Status: Satisfactory Anesthesia Complications: None
== END 2023-10-19 07:59 | disposition home or self-care (01) ==
LOC: SDS 07:58
PROVIDERS: ATTEND Ophthalmology
DX: H25.812 Combined forms of age-related cataract, left eye (principal); G47.33 Obstructive sleep apnea (adult) (pediatric); I10 Essential (primary) hypertension; E66.9 Obesity, unspecified; Z68.32 Body mass index [BMI] 32.0-32.9, adult; Z79.899 Other long term (current) drug therapy
CPT/HCPCS: 66984; A9270; J3490; J7120

== ENCOUNTER 2024-12-23 14:49 | Observation (INO) ==
--- OUTSIDE RECORDS SUMMARY | 2024-12-23 15:17 | EXTERNAL MEDICAL SUMMARY RPT | Continuity of Care Document ---
Author Organization [facility] Address [address] [place] [address] Phone Problems date description facility 2024-11-05 15:10 Other general symptoms and sign s [facility] 2024-11-05 16:16 Other general symptoms and sign s [facility] 2024-11-06 00:02 Other general symptoms and sign s [facility] 2024-11-08 14:10 Cough, unspecified [facility] 2024-11-08 14:10 Other general symptoms and sign s [facility] Social History date description facility
[2024-12-23 15:20] LABS: HCT - HEMATOCRIT 48.2 % (42.0-52.0); HGB - HEMOGLOBIN 14.9 g/dL (14.0-18.0); MEAN PLATELET VOLUME 9.9 fL (7.4-11.4); NRBC ABSOLUTE COUNT (AUTO) 0.00 x10^3/uL; NUCLEATED RED BLOOD CELLS AUTO 0.0 /100WBC; PLT - PLATELET COUNT 219 10^3/uL (130-450); RED CELL DISTRIBUTION WIDTH 13.8 % (12.0-15.0)
[2024-12-23 15:33] LABS: ALT ALANINE AMINOTRANSFERASE 18.0 IU/L (10-60); AST ASPARTATE AMINOTRANSFERASE 18.0 IU/L (10-42); BUN - BLOOD UREA NITROGEN 42.0 mg/dL (6-20); CARBON DIOXIDE - CO2 22.0 mmol/L (21-32); CREATININE 1.9 mg/dL (0.6-1.3); GFR - MDRD 34.0 (>89)
--- NOTE | 2024-12-23 15:34 | ED Physician Documentation ---
History of Present Illness Stated complaint Stated Complaint: NEAR SYNCOPE Chief complaint Chief Complaint: Neuro History obtained from History obtained from: Patient History of Present Illness Timing: Prior to arrival Additonal information Additional information: Patient is an 84-year-old male presenting to the emergency department with history of kidney transplant on tacrolimus back in 2019. He has history of recent STEMI in January 2024. He has history of A-fib and is on apixaban. He describes doing some errands this morning and going home for lunch after sitting at home in his armchair after lunch he developed an episode of lightheadedness as if he were about to faint he felt he could not get up on his own and was looking at his hands appearing very pale and images for weight looked dark and fuzzy. He denies any chest pain or shortness of breath at this time. He felt palpitations and his heart he took his blood pressure and it was in the 70s and his heart rate was in the 120s. He notes he has a history of A-fib but is on apixaban and is rate controlled. He denies ever having to be on medications to help with his heart rate for his A-fib. Feels better here in the ED still slightly lightheaded. No nausea vomiting lower leg swelling recent sick contacts. Meds/Allgy Home Medications Ambulatory Orders Medication Instructions Recorded Confirmed losartan 25 mg tablet 50 mg PO ONCE 01/02/2012/23 prednisone 5 mg tablet 5 mg PO DAILY 01/02/2012/23 tacrolimus 1 mg capsule, 0.5 mg PO QPM 01/02/2012/23 immediate-release (Prograf) tacrolimus 1 mg capsule, 1 mg PO DAILY 01/02/2012/23 immediate-release (Prograf) tamsulosin 0.4 mg capsule (Flomax) 0.4 mg PO QPM 01/0112/23/24 hydrocodone 5 mg-acetaminophen 325 1 - 2 tab PO Q6H TN N pain #14 tabs 03/15/24 12/23/24 mg tablet magnesium oxide 400 mg (241.3 mg 420 mg PO QDAY 12/23/24 magnesium) tablet (PureVita Magnesium Oxide) mycophenolate sodium 360 mg 360 mg PO BID 11/05/24 tablet,delayed release torsemide 40 mg tablet 40 mg PO QAM 11/05/24 apixaban 2.5 mg tablet 2.5 mg PO BID 12/23/2412/23 atorvastatin 40 mg tablet (Lipitor) 40 mg PO QPM 12/2312/23/24 cholecalciferol (vitamin D3) 50 50 mcg PO DAILY 12/23/24 mcg (2,000 unit) capsule (Vitamin D3) clopidogrel 75 mg tablet 75 mg PO DAILY 12/23/2412/07 eplerenone 25 mg tablet 12.5 mg PO DAILY 12/23/24 isosorbide mononitrate 60 mg 60 mg PO DAILY 12/23/2402/23/24 tablet,extended release 24 hr ketotifen fumarate 0.025 % (0.035 1 drp ophthalmic (ey e) BID 12/23/24 12/23/24 %) eye drops ([place]) Allergies Allergies Allergy/AdvReac Type Severity Reaction Status Date / Time pravastatin Allergy Unknown Verified 11/05/24 14:55 primidone Allergy Dizziness Verified 11/05/24 14:55 simvastatin Allergy Unknown Verified 11/05/24 14:55 zolpidem (From Ambien) Allergy Hallucinati Verified 11/05/24 14:55 ons Wfmkbnv-PXE-MqU Reductase AdvReac Unknown Verified 11/05/24 14:55 Inhibitor (Nbpbjxe-Cgd-Std Reductase Inhibitor) PFSH Active Problems All Active Problems (Updated 12/23/24 @ 18:50 by Carissa Wang PA-C) Syncope, cardiogenic (Acute) Pre-syncope (Acute) Flu-like symptoms (Acute) Watery eyes (Acute) Cough (Acute) Runny nose (Acute) A-fib (Acute) Bacteremia due to Gram-negative bacteria (Acute) Viral upper respiratory infection (Acute) Febrile illness (Acute) Urinary retention (Acute) Carlin palsy (Acute) Hypotension (Acute) Chronic renal failure, stage 5 (Acute) Plantar fasciitis of right foot (Acute) Medical History Medical History (Updated 12/23/24 @ 18:50 by Carissa Wang PA-C) Sciatica History of myocardial infarction Benign prostate hyperplasia Hypertension Chronic kidney disease HERBERTH on CPAP History of cataract Surgical History Surgical History History of vasectomy History of shoulder surgery History of kidney transplant Social History Social History (Updated 11/05/24 @ 16:16 by Tim Franklin MD) Smoking Status: Unknown if ever smoked Do you vape?: No Living arrangement: At home Living Condition: With family Do you feel safe in your home environment?: Yes History of physical, verbal, emotional, or financial abuse?: No POLST Patient has POLST: Yes Exam Exam Vital Signs: Vital Signs x48h Temp Pulse Resp BP Pulse Ox 12/23/24 17:19 64 16 140/75 H 95 12/23/24 16:35 74 20 93/69 93 12/23/24 15:20 73 17 88/55 L 93 12/23/24 14:49 36.5 C 76 18 127/78 94 Constitutional normal general appearance HENMT normocephalic Eyes PERRL and EOMs intact bilaterally Neck/C-Spine visual inspection normal Lymph no lymphadenopathy noted Chest inspection of chest normal Respiratory breath sounds equal bilaterally, normal respiratory effort and clear to auscultation bilaterally Cardiovascular normal heart rate noted Irregular rhythm but no murmur Extremities No lower leg swelling Skin skin color normal Results Vitals Vitals: Vital Signs - 24 hr 12/23/24 14:49 12/23/24 15:20 12/23/24 16:35 Temperature 36.5 C Temperature Source Oral Pulse Rate 76 73 74 Respiratory Rate 18 17 20 Blood Pressure 127/78 88/55 L 93/69 O2 Saturation 94 93 93 O2 Source Room air Room air Room air Pain Intensity 0 0 0 12/23/24 17:19 Temperature Temperature Source Pulse Rate 64 Respiratory Rate 16 Blood Pressure 140/75 H O2 Saturation 95 O2 Source Room air Pain Intensity 0 Oxygen O2 Source Room air Labs Labs: Laboratory Tests 12/23/24 12/23/24 15:00 15:21 WBC 8.7 RBC 5.25 Hgb 14.9 Hct 48.2 MCV 91.8 MCH 28.4 MCHC 30.9 L RDW 13.8 Plt Count 219 MPV 9.9 Neut # (Auto) 6.5 Lymph # (Auto) 1.5 [place] # (Auto) 0.6 Eos # (Auto) 0.1 Baso # (Auto) 0.0 Absolute Nucleated RBC 0.00 Nucleated RBC % 0.0 Sodium 137 Potassium 4.1 Chloride 106 Carbon Dioxide 22 Anion Gap 9.0 BUN 42 H Creatinine 1.9 H Estimated GFR (MDRD) 34 L Glucose 175 H POC Whole Bld Glucose 172 Calcium 8.7 Total Bilirubin 1.1 H AST 18 ALT 18 Alkaline Phosphatase 65 Troponin I High Sens 7.8 B-Natriuretic Peptide 207 H Total Protein 6.4 Albumin 4.0 Globulin 2.4 Albumin/Globulin Ratio 1.7 Lipase 25 PD Medical Decision Making ED course Complexity details: reviewed old records and reviewed results ED course: Patient 84-year-old male presenting to the emergency department with near syncope he was sitting in his chair this afternoon when he felt lightheaded and dizzy he felt some darkness in his vision and felt his skin looked very white took his blood pressure and he was hypotensive with a BP in the 70s and tachycardic to the 130 he is 80 symptoms at the time but was reporting patient's during episode he notes he ate and drink normally has past medical history remarkable for [place] last January and of 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 Vital stable on arrival he is nontachycardic afebrile saturating well on room air here in the ED normotensive on arrival. Patient had EKG done here in the ED with normalRate controlled atrial fibrillation. He was on telemetry while here in the ED he has no leukocytosis no signs of anemia CMP shows CKD stage III but this appears stable for patient compared to previous labs his BNP is slightly elevated at 207 and troponin at 7.8 here in the ED urine analysis pending at this time but given his symptoms would likely admit given he has most likely cardiogenic syncope given his story and his previous history chest x-ray shows no acute cardiopulmonary process here in the ED. I reached out to admit to Dr. Subhash Noriega and PA who came to evaluate patient here they recommended obtaining blood cultures urine analysis and CT head for further evaluation prior to a dmission. Patient's blood pressure did drop while here in the ED to blood pressure of 93/70 and I did start him on some IV fluids which did seem to improve his blood pressures to the 120s. CT head obtained showing no acute intracranial abnormality. Reassured patient on these findings and he feels safe to stay here in the ED given his history of cardiac history and his lightheadedness episode. Urine analysis pending at time of admission patient taken to observation status Discharge Plan Discharge Patient Disposition: [facility] DC/Xfer Clinical Impression: Chronic renal failure, stage 5, Pre-syncope, Syncope, cardiogenic
[2024-12-23 15:37] LABS: TROPONIN I HIGH SENSITIVITY 7.8 ng/L (2.3-19.7)
--- NOTE | 2024-12-23 15:56 | XRAY Report ---
PROCEDURE: XR Chest 1V INDICATIONS: syncope TECHNIQUE: One view of the chest was acquired. COMPARISON: 11/05/2024 FINDINGS: Surgical changes and devices: There is prior right shoulder reverse arthroplasty. Lungs and pleura: No pleural effusions or pneumothorax. No consolidation. Mediastinum: Mediastinal contours appear normal. Heart size is enlarged. Bones and chest wall: No suspicious bony lesions. Overlying soft tissues appear unremarkable. IMPRESSION: No acute cardiopulmonary process. Reviewed by: Lemuel Gutierrez MD on 12/23/2024 3:53 PM PST Approved by: Lemuel Gutierrez MD on 12/23/2024 3:53 PM PST Station ID: [id number]
[2024-12-23] MEDS: SODIUM CHLORIDE 0.9% 1,000 ML IV STA (17:00)
--- NOTE | 2024-12-23 18:10 | CT Report ---
PROCEDURE: CT Head WO INDICATIONS: concern for tia TECHNIQUE: CT of the head was performed, without intravenous contrast. Reformats: Coronal and sagittal. For radiation dose reduction, the following was used: automated exposure control, adjustment of mA and/or kV according to patient size. COMPARISON: 03/15/2024 FINDINGS: Image quality: Diagnostic CSF spaces: Basal cisterns are patent. Lateral ventricles are symmetric. Volume: Vascular calcifications. Periventricular white matter disease is commonly seen with chronic microangiopathy. Volume loss is present. These findings are moderate. Brain: No intracranial hemorrhage. Baumann-white differentiation is grossly maintained. Craniofacial structures: No significant paranasal sinus opacity. IMPRESSION: No acute intracranial abnormality. Consider MRI if there is high concern for infarction. Reviewed by: Duke Yadav MD on 12/23/2024 6:06 PM PST Approved by: Duke Yadav MD on 12/23/2024 6:06 PM PST Station ID: [id number]
[2024-12-23 18:54] LABS: OCCULT BLOOD,URINE NEGATIVE (NEGATIVE)
[2024-12-23 18:55] LABS: GLUCOSE, URINE (UA) NEGATIVE (NEGATIVE); KETONES,URINE (UA) NEGATIVE (NEGATIVE)
[2024-12-23] MEDS ORDERED: ONDANSETRON ODT 4 MG TABLET TL PRN (19:11)
[2024-12-23] MEDS ORDERED: ACETAMINOPHEN 325 MG TABLET PO PRN (19:11)
[2024-12-23] MEDS ORDERED: LOSARTAN 50 MG TABLET PO SCH (19:11)
[2024-12-23] MEDS ORDERED: oxyCODONE 5 MG TABLET PO PRN (19:11)
[2024-12-23] MEDS ORDERED: SODIUM CHLORIDE FLUSH 0.9% 10 ML SYRINGE IVP PRN (19:11)
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
[2024-12-23] MEDS ORDERED: METOPROLOL 5 MG/5 ML VIAL IVP PRN (20:31)
[2024-12-23] MEDS: TAMSULOSIN 0.4 MG CAPSULE PO SCH (20:37)
[2024-12-23] MEDS: ATORVASTATIN 40 MG TABLET PO SCH (20:38)
[2024-12-23] MEDS: TACROLIMUS 0.5 MG CAPSULE PO SCH (20:38)
[2024-12-23] MEDS: APIXABAN 2.5 MG TABLET PO SCH (20:38)
[2024-12-23] MEDS: SODIUM CHLORIDE FLUSH 0.9% 10 ML SYRINGE IVP SCH (23:38)
[2024-12-24 05:52] LABS: HCT - HEMATOCRIT 43.5 % (42.0-52.0); HGB - HEMOGLOBIN 14.0 g/dL (14.0-18.0); MEAN PLATELET VOLUME 10.1 fL (7.4-11.4); NRBC ABSOLUTE COUNT (AUTO) 0.00 x10^3/uL; NUCLEATED RED BLOOD CELLS AUTO 0.0 /100WBC; PLT - PLATELET COUNT 190 10^3/uL (130-450); RED CELL DISTRIBUTION WIDTH 13.6 % (12.0-15.0)
[2024-12-24 06:12] LABS: BUN - BLOOD UREA NITROGEN 44.0 mg/dL (6-20); CARBON DIOXIDE - CO2 21.0 mmol/L (21-32); CREATININE 1.8 mg/dL (0.6-1.3); GFR - MDRD 36.0 (>89)
[2024-12-24] MEDS: MAGNESIUM OXIDE 400 MG TABLET PO SCH (08:48)
[2024-12-24] MEDS: CLOPIDOGREL 75 MG TABLET PO SCH (08:48)
[2024-12-24] MEDS: TACROLIMUS 0.5 MG CAPSULE PO SCH (08:48)
[2024-12-24] MEDS: CHOLECALCIFEROL 25 MCG TABLET PO SCH (08:49)
[2024-12-24] MEDS: ISOSORBIDE MONONITRATE ER 30 MG TABLET PO SCH (08:49)
[2024-12-24 09:12] LABS: ESTIMATED AVERAGE GLUCOSE 146 mg/dL (70-100); HEMOGLOBIN A1c% 6.7 % (4.27-6.07)
[2024-12-24] MEDS: BUMETANIDE 1 MG TABLET PO SCH (09:33)
--- NOTE | 2024-12-24 10:00 | PHARMACY PROGRESS NOTE ---
Best Possible Medication History Admit Date and Time: 12/23/241817 Home Medications Medication Instructions Recorded Confirmed Type losartan 25 mg tablet 50 mg PO DAILY 01/02/2012/07 History prednisone 5 mg tablet 5 mg PO DAILY 01/02/2012/23 History tacrolimus 1 mg capsule, 0.5 mg PO QPM 01/02/2012/23 History immediate-release (Prograf) tacrolimus 1 mg capsule, 1 mg PO DAILY 01/02/2012/23 History immediate-release (Prograf) tamsulosin 0.4 mg capsule (Flomax) 0.8 mg PO QPM 01/0112/24/24 History magnesium oxide 400 mg (241.3 mg 420 mg PO QDAY 12/23/24 History magnesium) tablet (PureVita Magnesium Oxide) mycophenolate sodium 360 mg 360 mg PO BID 11/05/24 History tablet,delayed release apixaban 2.5 mg tablet 2.5 mg PO BID 12/23/2412/23 History atorvastatin 40 mg tablet (Lipitor) 40 mg PO QPM 12/2312/23/24 History cholecalciferol (vitamin D3) 50 50 mcg PO DAILY 12/23/24 History mcg (2,000 unit) capsule (Vitamin D3) clopidogrel 75 mg tablet 75 mg PO DAILY 12/23/2412/07 History eplerenone 25 mg tablet 12.5 mg PO DAILY 12/23/24 History isosorbide mononitrate 60 mg 60 mg PO DAILY 12/23/2402/23/24 History tablet,extended release 24 hr ketotifen fumarate 0.025 % (0.035 1 drp ophthalmic (ey e) BID 12/23/24 12/23/24 History %) eye drops (Alaway) torsemide 20 mg tablet 10 mg PO DAILY 12/24/2412/07 History Processed by: Pharmacy Medications reviewed in ED?: Yes Medication History completed: Yes Patient Interview: Completed Secondary Source(s): Written medication list and Insurance records [facility] Statement: As the person ultimately responsible for medication therapy, providers are able to order a medication from an existing home medication list in [facility] via the "Reconcile Routine" prior to Confirmation of that medication by passport support manager. Such practice is discouraged except when the physician, in their clinical judgment, deems that a medical need exists for a medication without regard to previous use.
--- NOTE | 2024-12-24 12:11 | PROVIDER PROGRESS NOTE ---
Subjective Prog Note Date Prog Note Date: 12/24/24 Prog Note Time: 11:30 Subjective Pt reports feeling: Improved Subjective: General: Pt reports his condition is much improved from yesterday, with no subsequent syncopal/near-syncopal episodes, paresthesias, vision changes, headaches, or any other s/s carried over to the night or this morning from yesterday's c/c. Pt does report that the palpitations he has experienced over the last 3-4 days are more noticeable to him, and are not related to physical activity or orthostatic changes. Pt does also relate a dry non-productive cough ongoing for approximately 1 week. I&O: PT relates he ate dinner and breakfast, has had x2 solid bowel movements with no gross hematochezia/tarry nature/diarrhea. Pt relates substantial PO fluid intake, with x3 trips to the bathroom to pass urine, with no tristin hematuria or dysuria noted. ROS: Pt trelates he has periodic SOB related to orthostatic changes or sustained activity. Pt denies any CP, syncope or presyncope, nausea, emesis, vertigo, HOLLOWAY, or pain. Current Medications Current Medications Current Medications: Current Medications Generic Name Dose Route Start Last Admin Trade Name Freq PRN Reason Stop Dose Admin Acetaminophen 650 mg 12/23/24 19:11 Acetaminophen 325 Mg Tablet PO Q4HR PRN Pain 1 to 4, or Fever Apixaban 2.5 mg 12/23/24 21:00 12/24/24 08:48 Apixaban 2.5 Mg Tablet PO 2.5 mg BID ANTONIO Administration Atorvastatin Calcium 40 mg 12/23/24 21:00 12/23/24 20:38 Atorvastatin 40 Mg Tablet PO 40 mg QPM ANTONIO Administration Bumetanide 2 mg 12/24/24 09:00 12/24/24 09:33 Bumetanide 1 Mg Tablet PO 2 mg DAILY ANTONIO Administration Cholecalciferol 50 mcg 12/24/24 09:00 12/24/24 08:49 Cholecalciferol 25 Mcg Tablet PO 50 mcg DAILY ANTONIO Administration Clopidogrel Bisulfate 75 mg 12/24/24 09:00 12/24/24 08:48 Clopidogrel 75 Mg Tablet PO 75 mg DAILY ANTONIO Administration Isosorbide Mononitrate 60 mg 12/24/24 09:00 12/24/24 08:49 Isosorbide Mononitrate Er 30 Mg Tablet PO 60 mg DAILY ANTONIO Administration Losartan Potassium 50 mg 12/23/24 19:11 Losartan 50 Mg Tablet PO 12/24/24 19:10 ONCE ANTONIO Magnesium Oxide 400 mg 12/24/24 09:00 12/24/24 08:48 Magnesium Oxide 400 Mg Tablet PO 400 mg DAILY ANTONIO Administration Metoprolol Tartrate 5 mg 12/23/24 20:31 Metoprolol 5 Mg/5 Ml Vial IVP Q6H PRN Tachycardia Ondansetron HCl 4 mg 12/23/24 19:11 Ondansetron Odt 4 Mg Tablet TL Q6HR PRN Nausea / Vomiting Oxycodone HCl 5 mg 12/23/24 19:11 Oxycodone 5 Mg Tablet PO Q4HR PRN Pain 5 to 7 Patient Own Med ( 0.5 each 12/24/24 12:00 12/24/24 11:24 Eplerenone 25mg) PO 0.5 each DAILY ANTONIO Administration Patient Own Med ( 1 each 12/24/24 12:00 12/24/24 11:24 Mycophenolate 360mg) PO 1 each BID ANTONIO Administration Prednisone 5 mg 12/24/24 09:00 12/24/24 08:49 Prednisone 5 Mg Tablet PO 5 mg DAILY ANTONIO Administration Sodium Chloride 10 ml 12/23/24 19:11 Sodium Chloride Flush 0.9% 10 Ml Syringe IVP PRN PRN NEEDED PER PROVIDER ORDERS Sodium Chloride 10 ml 12/24/24 01:00 12/24/24 08:48 Sodium Chloride Flush 0.9% 10 Ml Syringe IVP 10 ml 0100,0900,1700 ANTONIO Administration Tacrolimus 1 mg 12/24/24 09:00 12/24/24 08:48 Tacrolimus 0.5 Mg Capsule PO 1 mg DAILY ANTONIO Administration Tacrolimus 0.5 mg 12/23/24 21:00 12/23/24 20:38 Tacrolimus 0.5 Mg Capsule PO 0.5 mg QPM ANTONIO Administration Tamsulosin HCl 0.4 mg 12/23/24 21:00 12/23/24 20:37 Tamsulosin 0.4 Mg Capsule PO 0.4 mg QPM ANTONIO Administration Objective Vital Signs/Intake & Output Reviewed Vital Signs: Yes Vital Signs: Vital Signs x48h Temp Pulse Resp BP Pulse Ox 12/24/24 10:00 78 20 131/85 H 96 12/24/24 07:46 36.5 C 69 20 155/96 H 94 Intake & Output: Intake & Output 12/21/24 12/22/24 12/23/24 12/24/24 23:59 23:59 23:59 23:59 Intake Total 1240 / 1240 350 / 350 Balance 1240 / 1240 350 / 350 Weight (kg) 103 kg Objective General Appearance: positive No acute distress and Alert Eyes Bilateral: positive Normal inspection and PERRL Respiratory: positive Chest non-tender and No respiratory distress Cardiovascular: positive Irregularly irregular Abdomen: positive Non-tender and Nml bowel sounds Skin: positive Color nml and Dry Extremities: positive Non-tender, Nml appearance and No pedal edema Neurologic/Psychiatric: positive Oriented x3 Lab Results 12/24/24 05:05 12/24/24 05:05 Other Labs: Lab Results x24hrs 12/24/24 12/23/24 12/23/24 Range/Units 05:05 18:33 15:21 WBC 7.5 (4.8-10.8) x10^3/uL RBC 4.75 (4.70-6.10) 10^6/uL Hgb 14.0 (14.0-18.0) g/dL Hct 43.5 (42.0-52.0) % MCV 91.6 (80.0-94.0) fL MCH 29.5 (27.0-31.0) pg MCHC 32.2 (32.0-36.0) g/dL RDW 13.6 (12.0-15.0) % Plt Count 190 (130-450) 10^3/uL MPV 10.1 (7.4-11.4) fL Neut # (Auto) 4.5 (1.5-6.6) 10^3/uL Lymph # (Auto) 2.1 (1.5-3.5) 10^3/uL Schleicher # (Auto) 0.7 (0.0-1.0) 10^3/uL Eos # (Auto) 0.1 (0.0-0.7) 10^3/uL Baso # (Auto) 0.0 (0.0-0.1) 10^3/uL Absolute Nucleated RBC 0.00 x10^3/uL Nucleated RBC % 0.0 /100WBC Sodium 138 (135-145) mmol/L Potassium 3.7 (3.5-4.5) mmol/L Chloride 110 (101-111) mmol/L Carbon Dioxide 21 (21-32) mmol/L Anion Gap 7.0 (6-13) BUN 44 H (6-20) mg/dL Creatinine 1.8 H (0.6-1.3) mg/dL Estimated GFR (MDRD) 36 L (>89) Glucose 104 (74-104) mg/dL POC Whole Bld Glucose 172 (70-100) mg/dL Estimat Average Glucose 146 H (70-100) mg/dL Hemoglobin A1c % 6.7 H (4.27-6.07) % Calcium 8.2 L (8.5-10.3) mg/dL Total Bilirubin (0.2-1.0) mg/dL AST (10-42) IU/L ALT (10-60) IU/L Alkaline Phosphatase (42-121) IU/L Troponin I High Sens (2.3-19.7) ng/L B-Natriuretic Peptide (5-100) pg/mL Total Protein (6.4-8.9) g/dL Albumin (3.2-5.5) g/dL Globulin (2.1-4.2) g/dL Albumin/Globulin Ratio (1.0-2.2) Lipase (11-82) U/L Urine Color YELLOW Urine Clarity CLEAR (CLEAR) Urine pH 6.0 (5.0-7.5) PH Ur Specific Foster 1.015 (1.002-1.030) Urine Protein TRACE (NEGATIVE) mg/dL Urine Glucose (UA) NEGATIVE (NEGATIVE) mg/dL Urine Ketones NEGATIVE (NEGATIVE) mg/dL Urine Occult Blood NEGATIVE (NEGATIVE) Urine Nitrite NEGATIVE (NEGATIVE) Urine Bilirubin NEGATIVE (NEGATIVE) Urine Urobilinogen 0.2 (NORMAL) (NORMAL) E.U./dL Ur Leukocyte Esterase NEGATIVE (NEGATIVE) Ur Microscopic Review NOT INDICATED Urine Culture Comments NOT INDICATED 12/23/24 Range/Units 15:00 WBC 8.7 (4.8-10.8) x10^3/uL RBC 5.25 (4.70-6.10) 10^6/uL Hgb 14.9 (14.0-18.0) g/dL Hct 48.2 (42.0-52.0) % MCV 91.8 (80.0-94.0) fL MCH 28.4 (27.0-31.0) pg MCHC 30.9 L (32.0-36.0) g/dL RDW 13.8 (12.0-15.0) % Plt Count 219 (130-450) 10^3/uL MPV 9.9 (7.4-11.4) fL Neut # (Auto) 6.5 (1.5-6.6) 10^3/uL Lymph # (Auto) 1.5 (1.5-3.5) 10^3/uL Schleicher # (Auto) 0.6 (0.0-1.0) 10^3/uL Eos # (Auto) 0.1 (0.0-0.7) 10^3/uL Baso # (Auto) 0.0 (0.0-0.1) 10^3/uL Absolute Nucleated RBC 0.00 x10^3/uL Nucleated RBC % 0.0 /100WBC Sodium 137 (135-145) mmol/L Potassium 4.1 (3.5-4.5) mmol/L Chloride 106 (101-111) mmol/L Carbon Dioxide 22 (21-32) mmol/L Anion Gap 9.0 (6-13) BUN 42 H (6-20) mg/dL Creatinine 1.9 H (0.6-1.3) mg/dL Estimated GFR (MDRD) 34 L (>89) Glucose 175 H (74-104) mg/dL POC Whole Bld Glucose (70-100) mg/dL Estimat Average Glucose (70-100) mg/dL Hemoglobin A1c % (4.27-6.07) % Calcium 8.7 (8.5-10.3) mg/dL Total Bilirubin 1.1 H (0.2-1.0) mg/dL AST 18 (10-42) IU/L ALT 18 (10-60) IU/L Alkaline Phosphatase 65 (42-121) IU/L Troponin I High Sens 7.8 (2.3-19.7) ng/L B-Natriuretic Peptide 207 H (5-100) pg/mL Total Protein 6.4 (6.4-8.9) g/dL Albumin 4.0 (3.2-5.5) g/dL Globulin 2.4 (2.1-4.2) g/dL Albumin/Globulin Ratio 1.7 (1.0-2.2) Lipase 25 (11-82) U/L Urine Color Urine Clarity (CLEAR) Urine pH (5.0-7.5) PH Ur Specific Foster (1.002-1.030) Urine Protein (NEGATIVE) mg/dL Urine Glucose (UA) (NEGATIVE) mg/dL Urine Ketones (NEGATIVE) mg/dL Urine Occult Blood (NEGATIVE) Urine Nitrite (NEGATIVE) Urine Bilirubin (NEGATIVE) Urine Urobilinogen (NORMAL) E.U./dL Ur Leukocyte Esterase (NEGATIVE) Ur Microscopic Review Urine Culture Comments Assessment/Plan Problem List (1) Pre-syncope: Impression: Isolated presyncopal event with no other subsequent sequelae. Admitted for observation and medical clearance. Plan to d/c. (2) A-fib: Impression: Telemetry observation q4, showing no new acute dysrhythmias. Recommend follow up appointment with [place] cardiology and primary care, echo and Holter monitor recommended. (3) S/P kidney transplant: Impression: No post-transplant sequelae or indications for further diagnostics or treatment noted by providers at this time. (4) CAD (coronary artery disease): Impression: No acute or subacute sequelae or indications for further diagnostic treatment noted by providers at this time.
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
[2024-12-24 13:28] VITALS: BP 137/77; TEMP 97.7; O2SAT 95
[2024-12-24] MEDS ORDERED: APIXABAN 2.5 MG TABLET PO SCH (21:00)
== END 2024-12-24 13:20 | disposition home or self-care (01) ==
LOC: ED 14:49 → MS2 14:49
PROVIDERS: ADMIT Physician Assistant Medical; ATTEND Physician Assistant Medical